=== PATIENT | female | born 1970 | race Caucasian/White ===

== ENCOUNTER → 2016-11-18 | Outpatient (CLI) | payer MEDICARE ==
[2016-11-18 09:03] VITALS: BP 131/88; PULSE 69; RESP 16; TEMP 97.7; BMI 40.1
[2016-11-18 10:34] LABS: INR 1.1 (<1.1); Prothrombin Time 11.2 sec (9.0-12.0)
[2016-11-18 11:08] LABS: ALT 33 U/L (9-52); AST 22 U/L (14-36); Alkaline Phosphatase 81 U/L (38-126); Anion Gap 15 mmol/L; Blood Urea Nitrogen 6 mg/dL (7-17); Calcium 9.3 mg/dL (8.4-10.2); Carbon Dioxide 29 mmol/L (22-30); Chloride 101 mmol/L (98-107); Cholesterol 177 mg/dL (<200); Glucose 87 mg/dL (74-99); HDL Cholesterol 53 mg/dL (40-60); Iron 60 ug/dL (37-170); Magnesium 1.7 mg/dL (1.6-2.3); Non-African American GFR(MDRD) >60 (>60 ml/min/1.73 sqM); Phosphorous 3.7 mg/dL (2.5-4.5); Potassium 3.5 mmol/L (3.5-5.1); Sodium 145 mmol/L (137-145); Total Bilirubin 0.9 mg/dL (0.2-1.3); Total Protein 6.8 g/dL (6.3-8.2); Triglycerides 126 mg/dL (<150)
[2016-11-18 11:13] LABS: CHCM 33.3; HCT 46.9 % (34.0-46.0); HDW 2.89; HGB 15.2 gm/dL (11.4-16.0); MCH 28.5 pg (25.0-35.0); MCHC 32.5 g/dL (31.0-37.0); MCV 87.7 fL (80.0-100.0); Mean Platelet Volume 9.7; RBC 5.34 m/uL (3.80-5.40); RDW 15.5 % (11.5-15.5); WBC 5.5 k/uL (3.8-10.6)
[2016-11-18 11:18] LABS: % Iron Saturation 18.6 % (20-50); Prealbumin 14 mg/dL (18-36); Total Iron Binding Capacity 322 ug/dL (265-497)
[2016-11-18 12:10] LABS: Vitamin B12 954 pg/mL (239-931)
[2016-11-18 13:13] LABS: Hemoglobin A1C 4.6 % (4.2-6.1)
--- NOTE | 2016-11-21 18:39 | P.PN ---
Progress Note - Text DATE OF SERVICE: 11/18/2016. CHIEF COMPLAINT: Follow-up gastric bypass. HISTORY OF PRESENT ILLNESS: Paz Escalera is a 46-year-old female who is status post Aurea-en-Y gastric bypass from 08/16/2016. She is more than 3 months out. She has done a remarkable job, losing over 100 pounds lifetime. Her highest weight was 341 pounds to her recollection. Her ideal body weight for a 5-foot, 4-frame is 144 pounds. Today she comes in weighing 234 pounds. She has already lost 107 pounds. Percent excess weight loss of 54%. Body mass index is reduced from 58.7 down to 40.2. BMI point reduction is 18.4. She has lost an additional 24 pounds in approximately a month and a half. Her medications have been reduced from 32 to only 3 medications. No further reports of nausea and vomiting. She reports that her protein intake is averaging less than 60 grams daily. However, she denies any hair loss. She does report constipation. PAST MEDICAL HISTORY: 1. Morbid obesity. 2. Asthma. 3. Diabetes type 2, resolved. 4. Fibromyalgia. 5. Hyperlipidemia. 6. Hypertension, resolved. 7. Osteoarthritis. 8. Sjogren's disease. 9. Obstructive sleep apnea, resolved. 10. Chronic tachycardia, resolved. 11. Gastroesophageal reflux disease, resolved. 12. Irritable bowel syndrome. 13. Hypokalemia. 14. Peripheral venous insufficiency. 15. Lupus. 16. History of MRSA. 17. Anxiety. 18. Depression. PAST SURGICAL HISTORY: 1. Bilateral knee replacement. 2. Right knee replacement with sequelae of MRSA infection. 3. Cholecystectomy. 4. Hysterectomy. 5. Tonsillectomy. 6. Left knee arthroscopy. 7. Upper endoscopy. 8. Colonoscopy. 9. Laparoscopic Aurea-en-Y gastric bypass. MEDICATIONS: 1. Omeprazole. 2. Lopressor. 3. Cardizem. ALLERGIES: Milk and environmental allergies. SOCIAL HISTORY: Lifelong nontobacco user. No current alcohol abuse. FAMILY HISTORY: Denies esophageal or stomach cancer. Has obesity in her family as well as diabetes. REVIEW OF SYSTEMS: CONSTITUTIONAL: [place] body weight of 144 pounds. Highest weight of 341 pounds. She has 107 pounds weight loss. She is currently 90 pounds overweight. Body mass index reduced from 58.7 down to 40.2. Percent excess weight loss of 54%. Weight loss of 24 pounds in a month and a half. GASTROINTESTINAL: No reports of gastroesophageal reflux now resolved. ENDOCRINE: Resolved diabetes type 2. No reports of thyroid disorder. RESPIRATORY: Resolved obstructive sleep apnea. MUSCULOSKELETAL: Improved osteoarthritis of the lower back, including bilateral knees and hips. HEENT: She wears glasses. No reports of dysphagia. No reports of troubles with hearing. CARDIOVASCULAR: Has hypertensive cardiomyopathy. No recent chest pain or heart attack. NEURO: No recent stroke or seizure disorder. PSYCH: History of depression without suicidal ideation. HEMATOLOGIC: No recent DVTs or pulmonary emboli in herself or family. PHYSICAL EXAM: VITAL SIGNS: 97.7, 69, 16, 131/88; 5 feet 4 inches; 234 pounds. Body mass index 40.2. ABDOMEN: Soft. No palpable incisional hernias. Protuberant, nontender, nondistended. GENERAL: Well-developed female in no acute distress. MUSCULOSKELETAL: Resolved edema of the bilateral lower extremity now down to trace pedal edema. HEENT: No scleral icterus. Extraocular movements grossly intact. NECK: Supple without lymphadenopathy. CHEST: Nonlabored respirations with equal bilateral excursions. CARDIOVASCULAR: Tachycardic. NEURO: No focal or lateralizing signs. Cranial nerves 2-12 grossly within normal limits. PSYCH: Appropriate affect. Alert and oriented to person, place and time. LABS: Basic metabolic panel revealed white blood cell count of 5.5. Hemoglobin normal at 15.2. Hematocrit normal at 46.9. INR 1.1. BUN low at 6. Potassium low at 3.5. Magnesium low 1.7. Phosphorus normal at 3.7. Percent iron saturation low at 18.6. Prealbumin low at 14. Total protein normal at 6.8. Vitamin D low at 27. Thiamine low at 31. Vitamin B12 elevated at 954. Parathyroid hormone elevated at 96.1. Thyroid within normal limits. Copper selenium still pending. ASSESSMENT: 1. Morbid obesity due to excess calories. 2. Body mass index reduced from 58.7 down to 40.2. 3. Status post Aurea-en-Y gastric bypass. 4. Status post massive weight loss of 107 pounds lifetime. 5. Gastroesophageal reflux disease, resolved. 6. Diabetes type 2, resolved. 7. Hypertension with hypertensive heart disease. 8. Osteoarthritis of the bilateral knees improved. 9. Panniculitis. 10. Vitamin A deficiency. 11. Thiamine deficiency. 12. Elevated parathyroid hormone elevated. PLAN: 1. Recommend vitamin A supplement of at least 8000 units daily. 2. Recommend thiamine supplement. May need thiamine infusion. 3. Recommend calcium intake at minimum 1200 mg daily in divided doses. 4. Recommend nystatin powder for history of panniculitis. 5. Recommend follow-up at the bariatric center within 3 to 4 weeks out. 6. She does have history of constipation for which MiraLax has been prescribed on her behalf.
[2016-11-23 18:24] LABS: Selenium 140 mcg/L (63-160)
== END | disposition home or self-care (01) ==
LOC: BARWHC3 08:40
PROVIDERS: ATTEND Surgery Plastic and Reconstructive Surgery
DX: Z48.815 Encounter for surgical aftercare following surgery on the digestive system (principal); Z71.3 Dietary counseling and surveillance; Z79.899 Other long term (current) drug therapy; Z98.84 Bariatric surgery status; Z91.011 Allergy to milk products; Z91.048 Other nonmedicinal substance allergy status; E66.01 Morbid (severe) obesity due to excess calories; Z68.41 Body mass index [BMI] 40.0-44.9, adult; I11.9 Hypertensive heart disease without heart failure; M16.0 Bilateral primary osteoarthritis of hip; M17.0 Bilateral primary osteoarthritis of knee; M79.3 Panniculitis, unspecified; E50.9 Vitamin A deficiency, unspecified; E61.8 Deficiency of other specified nutrient elements; E21.3 Hyperparathyroidism, unspecified; R00.0 Tachycardia, unspecified; Z86.14 Personal history of Methicillin resistant Staphylococcus aureus infection; I73.9 Peripheral vascular disease, unspecified; M32.9 Systemic lupus erythematosus, unspecified; M79.7 Fibromyalgia; J45.909 Unspecified asthma, uncomplicated
CPT/HCPCS: 84255; 84134; 84425; 80061; 80053; 82607; 82728; 83036; 82525; 82746; 83540; 83550; 83735; 84100; 84443; 84590; 84630; 85027; 85610; 85730; 82306; 83970; 97803; G0463; 99211

== ENCOUNTER → 2017-02-17 | Outpatient (CLI) | payer MEDICARE ==
[2017-02-17 09:12] VITALS: BMI 35.0
[2017-02-17 09:26] VITALS: BP 157/81; PULSE 59; RESP 20; TEMP 97
[2017-02-17 10:49] LABS: CH 30.4; CHCM 34.2; HCT 45.1 % (34.0-46.0); HGB 14.7 gm/dL (11.4-16.0); MCH 29.1 pg (25.0-35.0); MCHC 32.6 g/dL (31.0-37.0); MCV 89.4 fL (80.0-100.0); Mean Platelet Volume 9.9; RBC 5.05 m/uL (3.80-5.40); WBC 4.9 k/uL (3.8-10.6)
[2017-02-17 11:22] LABS: Hemoglobin A1C 4.5 % (4.2-6.1)
[2017-02-17 11:27] LABS: INR 1.1 (<1.1); Partial Thromboplastin Time 23.5 sec (22.0-30.0); Prothrombin Time 11.1 sec (9.0-12.0)
[2017-02-17 11:48] LABS: ALT 27 U/L (9-52); AST 16 U/L (14-36); Alkaline Phosphatase 80 U/L (38-126); Anion Gap 12 mmol/L; Blood Urea Nitrogen 10 mg/dL (7-17); Calcium 9.5 mg/dL (8.4-10.2); Carbon Dioxide 29 mmol/L (22-30); Chloride 104 mmol/L (98-107); Cholesterol 171 mg/dL (<200); Glucose 83 mg/dL (74-99); HDL Cholesterol 54 mg/dL (40-60); Iron 72 ug/dL (37-170); Magnesium 1.8 mg/dL (1.6-2.3); Non-African American GFR(MDRD) >60 (>60 ml/min/1.73 sqM); Phosphorous 4.2 mg/dL (2.5-4.5); Potassium 3.2 mmol/L (3.5-5.1); Sodium 145 mmol/L (137-145); Total Bilirubin 0.8 mg/dL (0.2-1.3); Total Protein 6.9 g/dL (6.3-8.2); Triglycerides 107 mg/dL (<150)
[2017-02-17 12:08] LABS: % Iron Saturation 20.9 % (20-50); Prealbumin 13 mg/dL (18-36); Total Iron Binding Capacity 345 ug/dL (265-497)
[2017-02-17 12:53] LABS: Vitamin B12 589 pg/mL (239-931)
[2017-02-22 16:40] LABS: Selenium 100 mcg/L (63-160)
--- NOTE | 2017-04-07 13:22 | P.PN ---
Progress Note - Text DATE OF SERVICE: 02/17/2017 CHIEF COMPLAINT: Follow-up gastric bypass. HISTORY OF PRESENT ILLNESS: Paz Escalera is a very pleasant 46-year-old female status post Aurea-en-Y gastric bypass 08/16/2016. At her height of 5 feet 4 inches, her ideal body weight is 144 pounds. Her highest weight is 341 pounds. Today she comes in weighing 204 pounds. She has lost 137 pounds in now 6 months. Percent excess weight loss is 70%. Her body mass index is reduced from 58.7 down to 35. Total BMI point reduction is 23.6. She is only 60 pounds overweight. Since her last assessment barely 3 months ago she has also lost another 30 pounds. She has complete resolution of her diabetes including obstructive sleep apnea. Osteoarthritis is moderately improved. She is off of many of her antidepressants whereby her mood is excellent. She does report having passing out in [employer] after having low blood pressure from her medications. She denies any gastroesophageal reflux as well. She does report moderate skin irritation from her pannus. Now she presents for further evaluation and management. PAST MEDICAL HISTORY: 1. Morbid obesity. 2. Asthma. 3. Diabetes type 2, resolved. 4. Fibromyalgia. 5. Hyperlipidemia. 6. Hypertension, resolved. 7. Osteoarthritis. 8. Sjogren's disease. 9. Obstructive sleep apnea, resolved. 10. Chronic tachycardia, resolved. 11. Gastroesophageal reflux disease, resolved. 12. Irritable bowel syndrome. 13. Hypokalemia. 14. Peripheral venous insufficiency. 15. Lupus. 16. History of MRSA. 17. Anxiety. 18. Depression. PAST SURGICAL HISTORY: 1. Bilateral knee replacement. 2. Right knee replacement with sequelae of MRSA infection. 3. Cholecystectomy. 4. Hysterectomy. 5. Tonsillectomy. 6. Left knee arthroscopy. 7. Upper endoscopy. 8. Colonoscopy. 9. Laparoscopic Aurea-en-Y gastric bypass. MEDICATIONS: 1. Cardizem. 2. Calcium carbonate. 3. Multivitamins. 4. Thiamine. 5. Vitamin A. ALLERGIES: Milk and environmental allergies. SOCIAL HISTORY: Lifelong nontobacco user. No current alcohol abuse. FAMILY HISTORY: Denies esophageal or stomach cancer. Has obesity in her family as well as diabetes. REVIEW OF SYSTEMS: CONSTITUTIONAL: [place] body weight of 144 pounds. Highest weight of 341 pounds. She has lost 137 pounds. She achieved 70% excess weight loss. At her height of 5 feet 4 inches, her ideal body weight is 144 pounds. Her body mass index is reduced from 58.7 down to 35. Total BMI point reduction is 23.6. She is only 60 pounds overweight. CARDIOVASCULAR: Reports still taking her blood pressure with incidental hypotension. GASTROINTESTINAL: No reports of gastroesophageal reflux disease or dysphagia. ENDOCRINE: Resolved diabetes type 2. No reports of thyroid disorder. RESPIRATORY: Resolved obstructive sleep apnea. MUSCULOSKELETAL: Improved osteoarthritis of the lower back, including bilateral knees and hips. HEENT: She wears glasses. No reports of dysphagia. No reports of troubles with hearing. NEURO: No recent stroke or seizure disorder. PSYCH: History of depression without suicidal ideation. HEMATOLOGIC: No recent DVTs or pulmonary emboli in herself or family. PHYSICAL EXAM: VITAL SIGNS: 97, 59, 20, 157/81, 5 feet 4 inches, 204 pounds. Body mass index of 35.1. ABDOMEN: Soft, nontender. No large palpable incisional hernias. Pannus extended over pubis by 6 cm with hyperemia. MUSCULOSKELETAL: No clubbing, cyanosis, or edema. GENERAL: Well-developed female in no acute distress. HEENT: No scleral icterus. Extraocular movements grossly intact. NECK: Supple without lymphadenopathy. CHEST: Nonlabored respirations with equal bilateral excursions. CARDIOVASCULAR: Tachycardic. NEURO: No focal or lateralizing signs. Cranial nerves 2-12 grossly within normal limits. PSYCH: Appropriate affect. Alert and oriented to person, place and time. LABS: Bariatric metabolic panel reviewed demonstrating hemoglobin normal at 14.7. Potassium was low at 3.2. Prealbumin was low at 13. Vitamin A is low at 31. Parathyroid hormone elevated at 91.0. ASSESSMENT: 1. Morbid obesity due to excess calories. 2. Body mass index reduced from 58.7 down to 35. 3. Status post Aurea-en-Y gastric bypass. 4. Status post massive weight loss of 107 pounds lifetime. 5. Gastroesophageal reflux disease, resolved. 6. Diabetes type 2, resolved. 7. Hypertension with hypertensive heart disease. 8. Osteoarthritis of the bilateral knees improved. 9. Panniculitis. 10. Vitamin A deficiency. 11. Thiamine deficiency. 12. Elevated parathyroid hormone elevated. 13. History of syncopal episode secondary to low blood pressure. PLAN: 1. As she had hypotension observed, also recommend weaning of her cardiac medications. 2. On exam, she does have features of panniculitis which nystatin powder is written her behalf. 3. As she no longer reports any gastroesophageal reflux disease; recommend discontinuing her omeprazole. 4. Goal protein intake of over 75 grams advised. 5. For low vitamin A recommend vitamin A rich foods such as carrots, cantaloupes. 6. Parathyroid hormone was elevated secondary to hyperparathyroidism. 7. Also recommend increased intake of calcium over 1500 mg daily.
== END | disposition home or self-care (01) ==
LOC: BARWHC3 08:41
PROVIDERS: ATTEND Surgery Plastic and Reconstructive Surgery
DX: Z48.815 Encounter for surgical aftercare following surgery on the digestive system (principal); E66.01 Morbid (severe) obesity due to excess calories; Z68.35 Body mass index [BMI] 35.0-35.9, adult; Z71.3 Dietary counseling and surveillance; Z98.84 Bariatric surgery status; E21.1 Secondary hyperparathyroidism, not elsewhere classified; E89.1 Postprocedural hypoinsulinemia; E44.0 Moderate protein-calorie malnutrition; E55.9 Vitamin D deficiency, unspecified; D50.8 Other iron deficiency anemias; K74.1 Hepatic sclerosis; N19 Unspecified kidney failure; K50.90 Crohn's disease, unspecified, without complications
CPT/HCPCS: 84255; 84134; 84425; 80061; 80053; 82607; 82728; 83036; 82525; 82746; 83540; 83550; 83735; 84100; 84443; 84590; 84630; 85027; 85610; 85730; 82306; 83970; 97803; G0463; 99211

== ENCOUNTER → 2017-03-31 | Outpatient (CLI) | payer MEDICARE ==
[2017-03-31 10:38] VITALS: BP 146/77; PULSE 60; RESP 16; TEMP 97.7; BMI 32.4
--- NOTE | 2017-04-13 17:47 | P.PN ---
Progress Note - Text DATE OF SERVICE: 03/31/2017 CHIEF COMPLAINT: Follow-up gastric bypass. HISTORY OF PRESENT ILLNESS: Paz Escalera is a very pleasant 46-year-old female status post Aurea-en-Y gastric bypass 08/16/2016. At her height of 5 feet 4 inches, her ideal body weight is 144 pounds. Her highest weight is 341 pounds. Today she comes in weighing 189 pounds. She has lost 152 pounds. Percent excess weight loss is 77%. Her body mass index is reduced from 58.7 down to 32.5. Total BMI point reduction is 26.2 She is 45 pounds overweight. She is now 7 months postop. She reports epigastric abdominal pain including gnawing sensation. She is multiple stressors in her life with her mother just being diagnosed with a brain tumor. She is off more than 30+ medications. She comes in with concerns of panniculitis. She's 30 pounds shy of her weight loss goal. PAST MEDICAL HISTORY: 1. Morbid obesity. 2. Asthma. 3. Diabetes type 2, resolved. 4. Fibromyalgia. 5. Hyperlipidemia. 6. Hypertension, resolved. 7. Osteoarthritis. 8. Sjogren's disease. 9. Obstructive sleep apnea, resolved. 10. Chronic tachycardia, resolved. 11. Gastroesophageal reflux disease, resolved. 12. Irritable bowel syndrome. 13. Hypokalemia. 14. Peripheral venous insufficiency. 15. Lupus. 16. History of MRSA. 17. Anxiety. 18. Depression. PAST SURGICAL HISTORY: 1. Bilateral knee replacement. 2. Right knee replacement with sequelae of MRSA infection. 3. Cholecystectomy. 4. Hysterectomy. 5. Tonsillectomy. 6. Left knee arthroscopy. 7. Upper endoscopy. 8. Colonoscopy. 9. Laparoscopic Aurea-en-Y gastric bypass. MEDICATIONS: 1. Cardizem. 2. Calcium carbonate. 3. Multivitamins. 4. Thiamine. 5. Vitamin A. ALLERGIES: Milk and environmental allergies. SOCIAL HISTORY: Lifelong nontobacco user. No current alcohol abuse. FAMILY HISTORY: Denies esophageal or stomach cancer. Has obesity in her family as well as diabetes. REVIEW OF SYSTEMS: CONSTITUTIONAL: At her height of 5 feet 4 inches, her ideal body weight is 144 pounds. Her highest weight is 341 pounds. Today she comes in weighing 189 pounds. She has lost 152 pounds. Percent excess weight loss is 77%. Her body mass index is reduced from 58.7 down to 32.5. Total BMI point reduction is 26.2 She is 45 pounds overweight. CARDIOVASCULAR: She is on blood pressure medication however improved from over 3 medications. GASTROINTESTINAL: No reports of gastroesophageal reflux disease or dysphagia. No reports of dumping syndrome. ENDOCRINE: Resolved diabetes type 2. No reports of thyroid disorder. RESPIRATORY: Resolved obstructive sleep apnea. No pneumonia. MUSCULOSKELETAL: Improved osteoarthritis of the lower back, including bilateral knees and hips. HEENT: She wears glasses. No reports of dysphagia. No reports of troubles with hearing. NEURO: No recent stroke or seizure disorder. PSYCH: History of depression without suicidal ideation. HEMATOLOGIC: No recent DVTs or pulmonary emboli in herself or family. PHYSICAL EXAM: VITAL SIGNS: 5 feet 4 inches, 189 pounds. Body mass index of 32.5. Vital Signs Temp 97.7 F 03/31/17 10:35 Pulse 60 03/31/17 10:35 Resp 16 03/31/17 10:35 BP 146/77 03/31/17 10:35 Pulse Ox ABDOMEN: Soft, nontender. Nondistended. Pannus over pubis of 7 cm. MUSCULOSKELETAL: No clubbing, cyanosis, or edema. GENERAL: Well-developed female in no acute distress. HEENT: No scleral icterus. Extraocular movements grossly intact. NECK: Supple without lymphadenopathy. CHEST: Nonlabored respirations with equal bilateral excursions. CARDIOVASCULAR: Tachycardic. NEURO: No focal or lateralizing signs. Cranial nerves 2-12 grossly within normal limits. PSYCH: Appropriate affect. Alert and oriented to person, place and time. LABS: Bariatric metabolic panel reviewed demonstrating hemoglobin normal at 14.7. Potassium was low at 3.2. Prealbumin was low at 13. Vitamin A is low at 31. Parathyroid hormone elevated at 91.0. ASSESSMENT: 1. Morbid obesity due to excess calories. 2. Body mass index reduced from 58.7 down to 32.5. 3. Status post Aurea-en-Y gastric bypass. 4. Status post massive weight loss of 152 pounds lifetime. 5. Gastroesophageal reflux disease, resolved. 6. Diabetes type 2, resolved. 7. Hypertension with hypertensive heart disease. 8. Osteoarthritis of the bilateral knees improved. 9. Panniculitis. 10. Vitamin A deficiency 11. Thiamine deficiency, resolved. 12. Elevated parathyroid hormone elevated. 13. Epigastric abdominal pain. PLAN: 1. Recommend vitamin A supplement 8000 units daily. 2. Protein intake advised over 60 g daily. 3. Recommend upper endoscopy for epigastric abdominal pain. She is at risk for developing ulcer as she is under multiple social stressors. 4. Recommend follow-up 9 months postop otherwise for May 2017. 5. Nystatin powder for panniculitis.
== END | disposition home or self-care (01) ==
LOC: BARWHC3 09:21
PROVIDERS: ATTEND Surgery Plastic and Reconstructive Surgery
DX: Z48.815 Encounter for surgical aftercare following surgery on the digestive system (principal); E66.01 Morbid (severe) obesity due to excess calories; I11.9 Hypertensive heart disease without heart failure; M17.0 Bilateral primary osteoarthritis of knee; E50.9 Vitamin A deficiency, unspecified; Z68.32 Body mass index [BMI] 32.0-32.9, adult; Z79.899 Other long term (current) drug therapy; Z91.011 Allergy to milk products; Z98.84 Bariatric surgery status
CPT/HCPCS: 99211

== ENCOUNTER 2017-05-06 16:47 | Emergency (ER) | payer MEDICARE ==
[2017-05-06] MEDS ORDERED: MORPHINE SULFATE 10 MG/ML SYRINGE IM STA (17:37)
--- NOTE | 2017-05-06 17:58 | ED ---
Fall HPI - General Chief Complaint: Fall Stated Complaint: Fall Time Seen by Provider: 05/06/17 17:06 Source: patient, RN notes reviewed, old records reviewed Mode of arrival: ambulatory - History of Present Illness Initial Comments: 46-year-old female presents emergency Department chief complaint of a fall after losing her balance while walking through the garage. Patient reports that she twisted her left foot and ankle, and her knee bent backwards. She also reports that she fell and landed on her tailbone. She reports the pain is mainly in her lower back in tailbone area. She reports that she had a history of GERD bear active surgery and bilateral knee replacements. Patient reports that she thinks maybe heard right knee gave out on her and her left knee tried to catch her weight. She reports that she is having some knee pain with range of motion in his noticed some swelling. She denies any peripheral paresthesias. Denies any saddle anesthesias. Reports that the fall happened approximately 3 hours ago. - Related Data Home Medications Medication Instructions Recorded Confirmed Diltiazem HCl [Cardizem Cd] 360 mg PO QAM 04/01/16 03/31/17 Multivitamin [Men's Multi-Vitamin] 1 each PO DAILY 02/17/17 03/31/17 Previous Rx's Medication Instructions Recorded Calcium Carbonate [Calcium] 600 mg PO BID #60 tablet 11/20/16 Thiamine [Vitamin B-1] 100 mg PO DAILY #90 tablet 11/20/16 Vitamin A 8,000 unit PO DAILY #30 capsule 11/20/16 Nystatin 100,000 Unit/gm Powd 1 applic TOPICAL BID #60 powder 02/17/17 [Mycostatin Powder] Acetaminophen-Codeine 300-30mg 1 tab PO Q4H PRN #15 tablet 05/06/17 [Tylenol #3] Allergies Allergy/AdvReac Type Severity Reaction Status Date / Time milk AdvReac Diarrhea Verified 05/06/17 17:04 environment Allergy Mild Unknown Uncoded 05/06/17 17:04 Review of Systems ROS Statement: Those systems with pertinent positive or pertinent negative responses have been documented in the HPI. ROS Other: All systems not noted in ROS Statement are negative. Past Medical History Past Medical History: Asthma, Diabetes Mellitus, Fibromyalgia, GERD/Reflux, Hyperlipidemia, Hypertension, Osteoarthritis (OA), Skin Disorder, Sleep Apnea/ CPAP/BIPAP Additional Past Medical History / Comment(s): Sleep apnea, tachycardia. USES CPAP. Shogen's syndrome. IBS, low potassium, peripheral venous insufficiency, lupus. History of Any Multi-Drug Resistant Organisms: None Reported, MRSA Date of last positivie culture/infection: 2013 MDRO Source:: knee joint 2014 finished rx in December 2015 Past Surgical History: Bariatric Surgery, Cholecystectomy, Hysterectomy, Joint Replacement, Orthopedic Surgery, Tonsillectomy Additional Past Surgical History / Comment(s): 08/16/16 Laparoscopic Aurea-En Y gastric bypass with EGD. Other surgical hx: Laparoscopy x3. AT 1 WEEKS OLD, REPAIR OF PYLORIC STENOSIS. Left knee arthroscopic x4 with reconstruction x2. Total knee replacement 2008. Right total knee replacement 2009, removal of right knee replacement (MRSA) and spacer inserted. Past Anesthesia/Blood Transfusion Reactions: Postoperative Nausea & Vomiting ( PONV) Past Psychological History: Anxiety Smoking Status: Never smoker - Past Family History Mother Family Medical History: Congestive Heart Failure (CHF), Diabetes Mellitus, Hyperlipidemia, Hypertension, Thyroid Disorder General Exam - General Exam Comments Initial Comments: 46-year-old female. No acute distress. Limitations: no limitations General appearance: alert, in no apparent distress Head exam: Present: atraumatic, normocephalic, normal inspection Eye exam: Present: normal appearance, PERRL, EOMI. Absent: scleral icterus, conjunctival injection, periorbital swelling ENT exam: Present: normal exam, mucous membranes moist Neck exam: Present: normal inspection. Absent: tenderness, meningismus, lymphadenopathy Respiratory exam: Present: normal lung sounds bilaterally. Absent: respiratory distress, wheezes, rales, rhonchi, stridor Cardiovascular Exam: Present: regular rate, normal rhythm, normal heart sounds. Absent: systolic murmur, diastolic murmur, rubs, gallop, clicks GI/Abdominal exam: Present: soft, normal bowel sounds. Absent: distended, tenderness, guarding, rebound, rigid Extremities exam: Present: normal inspection, full ROM, normal capillary refill. Absent: tenderness, pedal edema, joint swelling, calf tenderness Left Hip exam: Present: normal inspection, full ROM Upper Leg exam: Present: normal inspection, full ROM Knee exam: Present: normal inspection (healed incision of knee replacement. ), full ROM Lower Leg exam: Present: normal inspection, full ROM Ankle exam: Present: normal inspection, full ROM Foot/Toe exam: Present: normal inspection, full ROM, tenderness (over dorsum of foot. ) Neurovascular tendon exam: Present: no vascular compromise Gait: observed and limited by pain Back exam: Present: normal inspection Neurological exam: Present: alert, oriented X3, CN II-XII intact Psychiatric exam: Present: normal affect, normal mood Skin exam: Present: warm, dry, intact, normal color. Absent: rash Course Vital Signs 05/06/17 17:03 Temperature 98.4 F Pulse Rate 87 Respiratory 20 Rate Blood Pressure 158/87 O2 Sat by Pulse 98 Oximetry Medical Decision Making - Medical Decision Making 46-year-old female presents emergency Department chief complaint of a fall after losing her balance while walking through the garage. Patient reports that she twisted her left foot and ankle, and her knee bent backwards. She also reports that she fell and landed on her tailbone. She reports the pain is mainly in her lower back in tailbone area. She reports that she had a history of GERD bear active surgery and bilateral knee replacements. Patient reports that she thinks maybe heard right knee gave out on her and her left knee tried to catch her weight. Patient will be given a knee immobilizer and [place]ingo wrap over the foot. Patient will be discharged with pain medication. She was given 5 mg of IM morphine and is feeling somewhat better at this time. Patient agrees to treatment plan will comply. Return parameters were discussed. Discussed falling up with orthopedic physician as well. Disposition Clinical Impression: Strain of left knee, Lumbar back pain, Fall, Sprain of left foot Disposition: HOME SELF-CARE Condition: Good Instructions: Knee Sprain (ED), Coccyx Injury (ED) Additional Instructions: Patient advised to follow-up with orthopedic physician. Take the pain medication as directed. Return to emergency department if any alarming signs or symptoms occur. Prescriptions: Acetaminophen-Codeine 300-30mg [Tylenol #3] 1 tab PO Q4H PRN #15 tablet PRN Reason: Pain Referrals: Elizabeth Westbrook MD [Primary Care Provider] - 1-2 days Time of Disposition: 18:53
--- NOTE | 2017-05-06 18:29 | XR ---
EXAMINATION TYPE: XR lumbar spine 2 or 3V DATE OF EXAM: 05/06/2017 COMPARISON: NONE HISTORY: Back pain TECHNIQUE: 3 views FINDINGS: The vertebra have normal alignment. There is degenerative disc space narrowing in the lower lumbar spine mainly at L4-5 and L5-S1. There is no compression fracture. Posterior elements are inta ct. Sacroiliac joints are intact. IMPRESSION: Spondylotic changes in the lower lumbar spine. No fracture seen.
--- NOTE | 2017-05-06 18:30 | XR ---
EXAMINATION TYPE: XR sacrum coccyx DATE OF EXAM: 05/06/2017 COMPARISON: NONE HISTORY: Back pain TECHNIQUE: 3 views FINDINGS: Segments have normal alignment. There is spondylosis in the lower lumbar spine. Sacroiliac joints are intact. IMPRESSION: Spondylotic changes in the lumbar spine. No fracture of the sacrum and coccyx.
--- NOTE | 2017-05-06 18:31 | XR ---
EXAMINATION TYPE: XR knee complete LT DATE OF EXAM: 05/06/2017 COMPARISON: NONE HISTORY: Pain TECHNIQUE: 3 views FINDINGS: There is a total knee prosthesis. Components appear in anatomic position. I see no fracture . There is no sign of joint effusion. IMPRESSION: Knee prosthesis. No fracture seen.
--- NOTE | 2017-05-06 18:33 | XR ---
EXAMINATION TYPE: XR foot limited LT DATE OF EXAM: 05/06/2017 COMPARISON: NONE HISTORY: Pain TECHNIQUE: 2 views FINDINGS: Metatarsals appear intact. There is a small Achilles calcaneal spur. I see no fracture nor dislocation. There are no erosions. IMPRESSION: Calcaneal spurring. No fracture seen.
[2017-05-06 19:18] VITALS: BP 125/76; PULSE 70; RESP 16; TEMP 98
== END 2017-05-06 19:12 | disposition home or self-care (01) ==
LOC: EC 16:47
DX: S93.602A Unspecified sprain of left foot, initial encounter (principal); S86.912A Strain of unspecified muscle(s) and tendon(s) at lower leg level, left leg, initial encounter; M54.5 Low back pain; I10 Essential (primary) hypertension; Z96.653 Presence of artificial knee joint, bilateral; Z86.14 Personal history of Methicillin resistant Staphylococcus aureus infection; Z79.899 Other long term (current) drug therapy; Z91.011 Allergy to milk products; Z91.048 Other nonmedicinal substance allergy status; X50.1XXA Overexertion from prolonged static or awkward postures, initial encounter; W18.39XA Other fall on same level, initial encounter
CPT/HCPCS: 72100; 72220; 73562; 73620; 99284; 96372; J2270

== ENCOUNTER → 2017-05-19 | Outpatient (CLI) | payer MEDICARE ==
[2017-05-19 09:20] VITALS: BP 144/76; PULSE 73; RESP 16; TEMP 98; BMI 29.7
== END | disposition home or self-care (01) ==
LOC: BARWHC3 08:47
PROVIDERS: ATTEND Surgery Plastic and Reconstructive Surgery
DX: Z48.815 Encounter for surgical aftercare following surgery on the digestive system (principal); E66.01 Morbid (severe) obesity due to excess calories; Z98.84 Bariatric surgery status; E89.1 Postprocedural hypoinsulinemia; D50.8 Other iron deficiency anemias; E44.0 Moderate protein-calorie malnutrition; E55.9 Vitamin D deficiency, unspecified; K74.1 Hepatic sclerosis; N19 Unspecified kidney failure; K50.90 Crohn's disease, unspecified, without complications; Z68.29 Body mass index [BMI] 29.0-29.9, adult
CPT/HCPCS: 99211

== ENCOUNTER → 2017-07-14 | Outpatient (CLI) | payer MEDICARE ==
[2017-07-14 11:14] LABS: CH 29.7; CHCM 32.3; HCT 42.6 % (34.0-46.0); HDW 2.54; HGB 13.8 gm/dL (11.4-16.0); MCH 29.8 pg (25.0-35.0); MCHC 32.3 g/dL (31.0-37.0); MCV 92.3 fL (80.0-100.0); Mean Platelet Volume 9.4; RBC 4.62 m/uL (3.80-5.40); RDW 13.8 % (11.5-15.5); WBC 4.1 k/uL (3.8-10.6)
[2017-07-14 11:19] LABS: INR 1.2 (<1.2); Partial Thromboplastin Time 24.6 sec (22.0-30.0); Prothrombin Time 11.7 sec (9.0-12.0)
[2017-07-14 11:33] LABS: ALT 29 U/L (9-52); AST 13 U/L (14-36); Alkaline Phosphatase 87 U/L (38-126); Anion Gap 10 mmol/L; Blood Urea Nitrogen 10 mg/dL (7-17); Calcium 9.4 mg/dL (8.4-10.2); Carbon Dioxide 28 mmol/L (22-30); Chloride 104 mmol/L (98-107); Cholesterol 156 mg/dL (<200); Glucose 80 mg/dL (74-99); HDL Cholesterol 54 mg/dL (40-60); Magnesium 1.7 mg/dL (1.6-2.3); Non-African American GFR(MDRD) >60 (>60 ml/min/1.73 sqM); Phosphorus 4.6 mg/dL (2.5-4.5); Potassium 3.6 mmol/L (3.5-5.1); Sodium 142 mmol/L (137-145); Total Bilirubin 0.7 mg/dL (0.2-1.3); Total Protein 6.5 g/dL (6.3-8.2)
[2017-07-14 12:18] LABS: Vitamin B12 400 pg/mL (239-931)
[2017-07-14 12:39] LABS: Hemoglobin A1C 4.6 % (4.2-6.1)
[2017-07-14 15:24] LABS: Iron Saturation 25.33 (12.00-45.00)
[2017-07-19 18:10] LABS: Selenium 132 mcg/L (63-160)
== END | disposition home or self-care (01) ==
LOC: LABWHC1 10:35
PROVIDERS: ATTEND Surgery Plastic and Reconstructive Surgery
DX: D50.8 Other iron deficiency anemias (principal); E66.01 Morbid (severe) obesity due to excess calories; E44.0 Moderate protein-calorie malnutrition; E55.9 Vitamin D deficiency, unspecified; E89.1 Postprocedural hypoinsulinemia; N19 Unspecified kidney failure; K74.1 Hepatic sclerosis; K50.90 Crohn's disease, unspecified, without complications
CPT/HCPCS: 36415; 80053; 80061; 82306; 82525; 82607; 82728; 82746; 83036; 83540; 83550; 83735; 83970; 84100; 84134; 84255; 84425; 84443; 84590; 84630; 85027; 85610; 85730

== ENCOUNTER → 2017-08-09 | Outpatient (CLI) | payer MEDICARE ==
--- NOTE | 2017-08-18 14:01 | ECHOF ---
Referral Reason:Hypertension I10 R55 Syncope MEASUREMENTS -------- HEIGHT: 162.6 cm WEIGHT: 70.8 kg BP: 132/86 RVIDd: 2.4 cm (< 3.3) IVSd: 0.9 cm (0.6 - 1.1) LVIDd: 4.8 cm (3.9 - 5.3) LVPWd: 1.0 cm (0.6 - 1.1) IVSs: 1.1 cm LVIDs: 3.5 cm LVPWs: 1.3 cm LAESV Index (A-L): 22.16 ml/m Ao Diam: 3.0 cm (2.0 - 3.7) AV Cusp: 2.0 cm (1.5 - 2.6) LA Diam: 4.3 cm (2.7 - 3.8) EPSS: 1.0 cm MV E Jurgen: 0.50 m/s MV DecT: 227 ms MV A Jurgen: 0.73 m/s MV E/A Ratio: 0.69 RAP: 5.00 mmHg RVSP: 23.03 mmHg MV EF SLOPE: 152.95 mm/s (70 - 150) MV EXCURSION: 2.38 cm (> 18.000) FINDINGS -------- Sinus rhythm. This was a technically good study. The left ventricular size is normal. Left ventricular wall thickness is normal. Overall left vent ricular systolic function is normal with, an EF between 55 - 60 %. The right ventricle is normal in size and function. Normal LA size by volume 22+/-6 ml/m2. The right atrium is normal in size. The aortic valve is trileaflet, and appears structurally normal. No aortic stenosis or regurgitation. The mitral valve is normal. Mild mitral regurgitation is present. Trace tricuspid regurgitation present. There is no pulmonic regurgitation present. The aortic root size is normal. Normal inferior vena cava with normal inspiratory collapse consistent with estimated right atrial pre ssure of 5 mmHg. The pericardium is normal. There is no pericardial effusion. CONCLUSIONS -------- 1. Sinus rhythm. 2. This was a technically good study. 3. Left ventricular wall thickness is normal. 4. Overall left ventricular systolic function is normal with, an EF between 55 - 60 %. 5. Normal LA size by volume 22+/-6 ml/m2. 6. The aortic valve is trileaflet, and appears structurally normal. No aortic stenosis or regurgitati on. 7. The mitral valve is normal. 8. Mild mitral regurgitation is present. 9. Trace tricuspid regurgitation present. 10. There is no pulmonic regurgitation present. 11. There is no pericardial effusion. CLINICAL AUDITOR: Cristian Elkins RDCS
== END | disposition home or self-care (01) ==
LOC: RADECHMAIN 15:26
PROVIDERS: ATTEND Internal Medicine
DX: I08.1 Rheumatic disorders of both mitral and tricuspid valves (principal); I10 Essential (primary) hypertension
CPT/HCPCS: 93306

== ENCOUNTER → 2017-08-18 | Outpatient (CLI) | payer MEDICARE ==
[2017-08-18 09:00] VITALS: BP 140/91; PULSE 78; RESP 16; TEMP 98; BMI 26.1
--- NOTE | 2017-10-20 18:46 | P.PN ---
Progress Note - Text Progress Note Date: 08/18/17 DATE OF SERVICE: 08/18/2017 CHIEF COMPLAINT: Follow-up gastric bypass. HISTORY OF PRESENT ILLNESS: Paz Escalera is a 46-year-old female status post Aurea-en-Y gastric bypass 08/16/2016. At her height of 5 feet 4 inches, her ideal body weight is 144 pounds. Her highest weight is 341 pounds. Today she comes in weighing 152 pounds. She has lost 189 pounds. Percent excess weight loss is 96%. Her body mass index is reduced from 58.7 down to 26.1. Total BMI point reduction is 32.6. She is 8 pounds overweight. She is 1 year postop. She has lost another 21 pounds in 3 months since her visit in May 2017. She is off all 38 medications. She reports resolution of her hypertension, fibromyalgia. She has much energy. No reports of dysphagia. She reports maintaining her protein intake. She comes in complaints with her abdominal skin , where she continues to have rash, odor, and irritation despite prescribed medications such as Nystatin powder. PAST MEDICAL HISTORY: 1. Morbid obesity. 2. Asthma. 3. Diabetes type 2, resolved. 4. Fibromyalgia. 5. Hyperlipidemia. 6. Hypertension, resolved. 7. Osteoarthritis. 8. Sjogren's disease. 9. Obstructive sleep apnea, resolved. 10. Chronic tachycardia, resolved. 11. Gastroesophageal reflux disease, resolved. 12. Irritable bowel syndrome. 13. Hypokalemia. 14. Peripheral venous insufficiency. 15. Lupus. 16. History of MRSA. 17. Anxiety. 18. Depression. PAST SURGICAL HISTORY: 1. Bilateral knee replacement. 2. Right knee replacement with sequelae of MRSA infection. 3. Cholecystectomy. 4. Hysterectomy. 5. Tonsillectomy. 6. Left knee arthroscopy. 7. Upper endoscopy. 8. Colonoscopy. 9. Laparoscopic Aurea-en-Y gastric bypass. MEDICATIONS: 1. Vitamin A. 2. Calcium carbonate. 3. Multivitamins. 4. Thiamine. ALLERGIES: Milk and environmental allergies. SOCIAL HISTORY: Lifelong nontobacco user. No current alcohol abuse. FAMILY HISTORY: Denies esophageal or stomach cancer. Has obesity in her family as well as diabetes. REVIEW OF SYSTEMS: CONSTITUTIONAL: At her height of 5 feet 4 inches, her ideal body weight is 144 pounds. Her highest weight is 341 pounds. Today she comes in weighing 152 pounds. She has lost 189 pounds. Percent excess weight loss is 96%. Her body mass index is reduced from 58.7 down to 26.1. Total BMI point reduction is 32.6. She is 8 pounds overweight. CARDIOVASCULAR: She is off all blood pressure medications. GASTROINTESTINAL: No reports of gastroesophageal reflux disease or dysphagia. No reports of dumping syndrome. ENDOCRINE: Resolved diabetes type 2. No reports of thyroid disorder. RESPIRATORY: Resolved obstructive sleep apnea. No pneumonia. MUSCULOSKELETAL: Improved osteoarthritis of the lower back, including bilateral knees and hips. HEENT: She wears glasses. No reports of dysphagia. No reports of troubles with hearing. NEURO: No recent stroke or seizure disorder. PSYCH: History of depression without suicidal ideation. HEMATOLOGIC: No recent DVTs or pulmonary emboli in herself or family. SKIN: Reports chronic skin infections of panniculitis. PHYSICAL EXAM: VITAL SIGNS: 5 feet 4 inches, 173 pounds. Body mass index of 26.1. Vital Signs Temp 98.0 F 08/18/17 08:55 Pulse 78 08/18/17 08:55 Resp 16 08/18/17 08:55 BP 140/91 08/18/17 08:55 Pulse Ox ABDOMEN: Soft, nontender. Nondistended. Pannus over pubis of 8 cm with panniculitis. MUSCULOSKELETAL: No clubbing, cyanosis, or edema. GENERAL: Well-developed female in no acute distress. HEENT: No scleral icterus. Extraocular movements grossly intact. NECK: Supple without lymphadenopathy. CHEST: Nonlabored respirations with equal bilateral excursions. CARDIOVASCULAR: Tachycardic. NEURO: No focal or lateralizing signs. Cranial nerves 2-12 grossly within normal limits. PSYCH: Appropriate affect. Alert and oriented to person, place and time. SKIN: Well perfused. Good skin turgor. LABS: Reviewed with low prealbumin, vitamin A, PTH elevated but improved. ASSESSMENT: 1. Morbid obesity due to excess calories. 2. Body mass index reduced from 58.7 down to 26.1. 3. Status post Aurea-en-Y gastric bypass. 4. Status post massive weight loss of 189 pounds lifetime. 5. Gastroesophageal reflux disease, resolved. 6. Diabetes type 2, resolved. 7. Hypertension with hypertensive heart disease, improved. 8. Osteoarthritis of the bilateral knees improved. 9. Panniculitis. 10. Vitamin A deficiency. PLAN: 1. Recommend evaluation for panniculectomy as she continues to have chronic infections for panniculitis. 2. Goal of protein intake of over 70 grams advised. 3. Continue with Nystatin powder. 4. Follow-up at the bariatric center in February 2018.
== END | disposition home or self-care (01) ==
LOC: BARWHC3 08:37
PROVIDERS: ATTEND Surgery Plastic and Reconstructive Surgery
DX: Z09 Encounter for follow-up examination after completed treatment for conditions other than malignant neoplasm (principal); E66.01 Morbid (severe) obesity due to excess calories; I11.9 Hypertensive heart disease without heart failure; M17.0 Bilateral primary osteoarthritis of knee; M79.3 Panniculitis, unspecified; M19.90 Unspecified osteoarthritis, unspecified site; E50.9 Vitamin A deficiency, unspecified; Z68.26 Body mass index [BMI] 26.0-26.9, adult; Z91.011 Allergy to milk products; Z91.09 Other allergy status, other than to drugs and biological substances; Z91.048 Other nonmedicinal substance allergy status; Z79.899 Other long term (current) drug therapy; Z98.84 Bariatric surgery status
CPT/HCPCS: 97803; G0463; 99211

== ENCOUNTER → 2017-11-04 | Outpatient (CLI) | payer MEDICARE ==
[2017-11-04 12:43] LABS: HCT 39.9 % (34.0-46.0); HGB 13.7 gm/dL (11.4-16.0); MCH 30.8 pg (25.0-35.0); MCHC 34.2 g/dL (31.0-37.0); MCV 89.9 fL (80.0-100.0); Mean Platelet Volume 8.9; Platelet Count 184 k/uL (150-450); RBC 4.44 m/uL (3.80-5.40); RDW 13.4 % (11.5-15.5); WBC 3.7 k/uL (3.8-10.6)
[2017-11-04 12:55] LABS: ALT 29 U/L (9-52); AST 19 U/L (14-36); Albumin 3.8 g/dL (3.5-5.0); Alkaline Phosphatase 86 U/L (38-126); Anion Gap 7 mmol/L; Blood Urea Nitrogen 10 mg/dL (7-17); Calcium 9.3 mg/dL (8.4-10.2); Carbon Dioxide 32 mmol/L (22-30); Chloride 104 mmol/L (98-107); Cholesterol 133 mg/dL (<200); Glucose 82 mg/dL (74-99); HDL Cholesterol 54 mg/dL (40-60); LDL Cholesterol,Calculated 62 mg/dL (0-99); Phosphorus 4.1 mg/dL (2.5-4.5); Potassium 3.9 mmol/L (3.5-5.1); Sodium 143 mmol/L (137-145); Total Bilirubin 0.4 mg/dL (0.2-1.3); Total Protein 6.4 g/dL (6.3-8.2); Triglycerides 87 mg/dL (<150)
[2017-11-04 13:00] LABS: INR 1.1 (<1.2); Partial Thromboplastin Time 23.8 sec (22.0-30.0)
[2017-11-04 19:35] LABS: Iron Saturation 26.35 (12.00-45.00)
[2017-11-04 19:43] LABS: Vitamin D 25 Hydroxy 29.4 ng/mL (30.0-100.0)
[2017-11-04 19:49] LABS: Folate, Serum 16.6 ng/mL
[2017-11-04 20:42] LABS: Parathyroid Hormone Intact 90.1 pg/mL (14.0-72.0)
[2017-11-05 01:43] LABS: Hemoglobin A1C 4.7 % (4.0-6.0)
[2017-11-07 07:37] LABS: Vitamin B1 85 ug/L (38-122)
[2017-11-07 08:45] LABS: Vitamin A 36 ug/dL (38-106)
[2017-11-07 16:31] LABS: Zinc, Serum 69 ug/dL (60-130)
[2017-11-08 16:18] LABS: Selenium 117 mcg/L (63-160)
== END | disposition home or self-care (01) ==
LOC: LABWHC1 12:17
PROVIDERS: ATTEND Surgery Plastic and Reconstructive Surgery
DX: E21.1 Secondary hyperparathyroidism, not elsewhere classified (principal); D50.9 Iron deficiency anemia, unspecified; E89.1 Postprocedural hypoinsulinemia; E44.0 Moderate protein-calorie malnutrition; E55.9 Vitamin D deficiency, unspecified; K50.90 Crohn's disease, unspecified, without complications; N19 Unspecified kidney failure; K74.1 Hepatic sclerosis; E66.01 Morbid (severe) obesity due to excess calories
CPT/HCPCS: 36415; 80053; 80061; 82306; 82525; 82607; 82728; 82746; 83036; 83540; 83550; 83735; 83970; 84100; 84134; 84255; 84425; 84443; 84590; 84630; 85027; 85610; 85730

== ENCOUNTER → 2017-11-09 | Outpatient (CLI) | payer MEDICARE ==
[2017-11-09 12:14] VITALS: BP 161/95; PULSE 84; RESP 16; TEMP 98.7; BMI 24.4
--- NOTE | 2017-12-11 16:20 | P.PN ---
Subjective Progress Note Date: 11/09/17 DATE OF SERVICE: 11/09/2017 CHIEF COMPLAINT: Follow-up gastric bypass. HISTORY OF PRESENT ILLNESS: Paz Escalera is a 47-year-old female status post Aurea-en-Y gastric bypass 08/16/2016. She is more than 1 year out. She is mostly concerned about slowing down her weight loss. She reports increased fatigue. She is off all medications for her blood pressure, diabetes, pain medications including for fibromyalgia. She reports her blood sugars have been low between 50-60 mg/dL. She presents for follow-up. At her height of 5 feet 4 inches, her ideal body weight is 144 pounds. Her highest weight is 341 pounds. Today she comes in weighing 142 pounds. She has lost 199 pounds. Percent excess weight loss is 101%. Her body mass index is reduced from 58.7 down to 24.4. She has lost 10 pounds in 3 months since her last visit. Total BMI point reduction is 34.2. PAST MEDICAL HISTORY: 1. Morbid obesity. 2. Asthma. 3. Diabetes type 2, resolved. 4. Fibromyalgia. 5. Hyperlipidemia. 6. Hypertension, resolved. 7. Osteoarthritis. 8. Sjogren's disease. 9. Obstructive sleep apnea, resolved. 10. Chronic tachycardia, resolved. 11. Gastroesophageal reflux disease, resolved. 12. Irritable bowel syndrome. 13. Hypokalemia. 14. Peripheral venous insufficiency. 15. Lupus. 16. History of MRSA. 17. Anxiety. 18. Depression. PAST SURGICAL HISTORY: 1. Bilateral knee replacement. 2. Right knee replacement with sequelae of MRSA infection. 3. Cholecystectomy. 4. Hysterectomy. 5. Tonsillectomy. 6. Left knee arthroscopy. 7. Upper endoscopy. 8. Colonoscopy. 9. Laparoscopic Aurea-en-Y gastric bypass. MEDICATIONS: 1. Vitamin A. 2. Calcium carbonate. 3. Multivitamins. 4. Thiamine. ALLERGIES: Milk and environmental allergies. SOCIAL HISTORY: Lifelong nontobacco user. No current alcohol abuse. FAMILY HISTORY: Denies esophageal or stomach cancer. Has obesity in her family as well as diabetes. Family history of thyroid cancer. REVIEW OF SYSTEMS: CONSTITUTIONAL: At her height of 5 feet 4 inches, her ideal body weight is 144 pounds. Her highest weight is 341 pounds. Today she comes in weighing 142 pounds. She has lost 199 pounds. Percent excess weight loss is 101%. Her body mass index is reduced from 58.7 down to 24.4 CARDIOVASCULAR: She is off all blood pressure medications. GASTROINTESTINAL: No reports of gastroesophageal reflux disease or dysphagia. No reports of dumping syndrome. ENDOCRINE: Resolved diabetes type 2. No reports of thyroid disorder. RESPIRATORY: Resolved obstructive sleep apnea. No pneumonia. MUSCULOSKELETAL: Improved osteoarthritis of the lower back, including bilateral knees and hips. HEENT: She wears glasses. No reports of dysphagia. No reports of troubles with hearing. NEURO: No recent stroke or seizure disorder. PSYCH: History of depression without suicidal ideation. HEMATOLOGIC: No recent DVTs or pulmonary emboli in herself or family. SKIN: Reports chronic skin infections of panniculitis. PHYSICAL EXAM: VITAL SIGNS: 5 feet 4 inches, 142 pounds. Body mass index of 24.4. Vital Signs Temp 98.7 F 11/09/17 12:09 Pulse 84 11/09/17 12:09 Resp 16 11/09/17 12:09 BP 161/95 11/09/17 12:09 Pulse Ox ABDOMEN: Soft, nontender. Nondistended. Pannus over pubis of 10 cm with panniculitis. Weight of pannus over 8 pounds. MUSCULOSKELETAL: No clubbing, cyanosis, or edema. GENERAL: Well-developed female in no acute distress. HEENT: No scleral icterus. Extraocular movements grossly intact. NECK: Supple without lymphadenopathy. CHEST: Nonlabored respirations with equal bilateral excursions. CARDIOVASCULAR: Tachycardic. NEURO: No focal or lateralizing signs. Cranial nerves 2-12 grossly within normal limits. PSYCH: Appropriate affect. Alert and oriented to person, place and time. SKIN: Well perfused. Good skin turgor. LABS: Laboratory Last Values WBC 3.7 k/uL (3.8-10.6) L 11/04/17 12:20 RBC 4.44 m/uL (3.80-5.40) 11/04/17 12:20 Hgb 13.7 gm/dL (11.4-16.0) 11/04/17 12:20 Hct 39.9 % (34.0-46.0) 11/04/17 12:20 MCV 89.9 fL (80.0-100.0) 11/04/17 12:20 MCH 30.8 pg (25.0-35.0) 11/04/17 12:20 MCHC 34.2 g/dL (31.0-37.0) 11/04/17 12:20 RDW 13.4 % (11.5-15.5) 11/04/17 12:20 Plt Count 184 k/uL (150-450) 11/04/17 12:20 PT 11.0 sec (9.0-12.0) 11/04/17 12:20 INR 1.1 (<1.2) 11/04/17 12:20 APTT 23.8 sec (22.0-30.0) 11/04/17 12:20 Sodium 143 mmol/L (137-145) 11/04/17 12:20 Potassium 3.9 mmol/L (3.5-5.1) 11/04/17 12:20 Chloride 104 mmol/L (98-107) 11/04/17 12:20 Carbon Dioxide 32 mmol/L (22-30) H 11/04/17 12:20 Anion Gap 7 mmol/L 11/04/17 12:20 BUN 10 mg/dL (7-17) 11/04/17 12:20 Creatinine 0.70 mg/dL (0.52-1.04) 11/04/17 12:20 Est GFR (MDRD) Af Amer >60 (>60 ml/min/1.73 sqM) 11/04/17 12:20 Est GFR (MDRD) Non-Af >60 (>60 ml/min/1.73 sqM) 11/04/17 12:20 Glucose 82 mg/dL (74-99) 11/04/17 12:[address] Glu mg/dL 88 11/04/17 12:20 Hemoglobin A1c 4.7 % (4.0-6.0) 11/04/17 12:20 Calcium 9.3 mg/dL (8.4-10.2) 11/04/17 12:20 Phosphorus 4.1 mg/dL (2.5-4.5) 11/04/17 12:20 Magnesium 2.0 mg/dL (1.6-2.3) 11/04/17 12:20 Iron 88 ug/dL (50-170) 11/04/17 12:20 TIBC 334 ug/dL (228-460) 11/04/17 12:20 Iron Saturation 26.35 (12.00-45.00) 11/04/17 12:20 Ferritin 59.8 ng/mL (10.0-291.0) 11/04/17 12:20 Total Bilirubin 0.4 mg/dL (0.2-1.3) 11/04/17 12:20 AST 19 U/L (14-36) 11/04/17 12:20 ALT 29 U/L (9-52) 11/04/17 12:20 Alkaline Phosphatase 86 U/L (38-126) 11/04/17 12:20 Total Protein 6.4 g/dL (6.3-8.2) 11/04/17 12:20 Albumin 3.8 g/dL (3.5-5.0) 11/04/17 12:20 Prealbumin 16.0 mg/dL (18.0-42.0) L 11/04/17 12:20 Triglycerides 87 mg/dL (<150) 11/04/17 12:20 Cholesterol 133 mg/dL (<200) 11/04/17 12:20 LDL Cholesterol, Calc 62 mg/dL (0-99) 11/04/17 12:20 HDL Cholesterol 54 mg/dL (40-60) 11/04/17 12:20 Vitamin A 36 ug/dL (38-106) L 11/04/17 12:20 Vitamin B1 85 ug/L (38-122) 11/04/17 12:20 Vitamin B12 363.0 pg/mL (200.0-944.0) 11/04/17 12:20 Vitamin D 25-Hydroxy 29.4 ng/mL (30.0-100.0) L 11/04/17 12:20 Folate 16.6 ng/mL 11/04/17 12:20 TSH 1.390 mIU/L (0.465-4.680) 11/04/17 12:20 PTH Intact 90.1 pg/mL (14.0-72.0) H 11/04/17 12:20 Copper 1201 ug/L (810-1990) 11/04/17 12:20 Selenium 117 mcg/L (63-160) 11/04/17 12:20 Zinc 69 ug/dL (60-130) 11/04/17 12:20 Vitamin A low. Vitamin D low. PTH elevated Prealbumin level low WBC low ASSESSMENT: 1. Morbid obesity due to excess calories. 2. Body mass index reduced from 58.7 down to 24.4. 3. Status post Aurea-en-Y gastric bypass. 4. Status post massive weight loss of 189 pounds lifetime. 5. Gastroesophageal reflux disease, resolved. 6. Diabetes type 2, resolved. 7. Hypertension with hypertensive heart disease, improved. 8. Osteoarthritis of the bilateral knees improved. 9. Panniculitis. 10. Vitamin A deficiency. 11. Fatigue. 12. Leukopenia 13. Vitamin D deficiency 14. Secondary hyperparathyroidism 15. Family history of thyroid cancer. PLAN: 1. Her thyroid level was within normal limits however she reports possible thyroid nodule. Recommend ultrasound of the neck. 2. Recommend increase in fats in her diet. 3. Prealbumin level was low. Recommend combination diet including increased fats and protein with carbs. 4. Recommend food diary to identify hypoglycemic events. 5. Vitamin A supplement including vitamin A rich foods 6. Increase calcium intake 1500 mg daily. 7. Recommend vitamin D supplement. Objective - Vital Signs Vital signs: Vital Signs Temp 98.7 F 11/09/17 12:09 Pulse 84 11/09/17 12:09 Resp 16 11/09/17 12:09 BP 161/95 11/09/17 12:09 Pulse Ox Intake & Output 11/08/17 11/09/17 11/09/17 18:59 06:59 18:59 Weight 64.552 kg
== END | disposition home or self-care (01) ==
LOC: BARWHC3 11:30
PROVIDERS: ATTEND Surgery Plastic and Reconstructive Surgery
DX: Z09 Encounter for follow-up examination after completed treatment for conditions other than malignant neoplasm (principal); E66.01 Morbid (severe) obesity due to excess calories; I11.9 Hypertensive heart disease without heart failure; M17.0 Bilateral primary osteoarthritis of knee; M79.3 Panniculitis, unspecified; E50.9 Vitamin A deficiency, unspecified; R53.83 Other fatigue; D72.819 Decreased white blood cell count, unspecified; E55.9 Vitamin D deficiency, unspecified; N25.81 Secondary hyperparathyroidism of renal origin; Z80.8 Family history of malignant neoplasm of other organs or systems; Z71.3 Dietary counseling and surveillance; Z79.899 Other long term (current) drug therapy; Z68.24 Body mass index [BMI] 24.0-24.9, adult; Z98.84 Bariatric surgery status; Z91.011 Allergy to milk products; Z91.048 Other nonmedicinal substance allergy status
CPT/HCPCS: 97803; G0463; 99211

== ENCOUNTER → 2017-11-23 | Outpatient (CLI) | payer MEDICARE ==
[~2017-11-23] MED LIST: CYANOCOBALAMIN 1,000 MCG/ML 1 ML VIAL IM ONE
[2017-11-23 15:04] VITALS: BP 143/85; PULSE 87; RESP 16; TEMP 97.7; BMI 24.0
== END | disposition home or self-care (01) ==
LOC: BARWHC3 13:50
PROVIDERS: ATTEND Surgery Plastic and Reconstructive Surgery
DX: D51.9 Vitamin B12 deficiency anemia, unspecified (principal)
CPT/HCPCS: 96372; J3420; G0463; 99211

== ENCOUNTER → 2017-11-24 | Outpatient (CLI) | payer MEDICARE ==
--- NOTE | 2017-11-24 14:19 | US ---
EXAMINATION TYPE: US thyroid st tissue head/neck DATE OF EXAM: 11/24/2017 COMPARISON: NONE CLINICAL HISTORY: R94.6 ABN THYROID LABS,R22.0 SWELLING/MASS. Difficult swallowing GLAND SIZE: Right Lobe: 4.6 x 1.7 x 1.3 cm Overall Parenchyma: homogenous Left Lobe: 4.1 x 1.4 x 0.9 cm Overall Parenchyma: homogeneous Isthmus Thickness: 0.3 cm NODULES RIGHT: # of nodules measured on right: 1 appears to be para thyroid 1. 0.5 X 0.5 x 0.4 cm echogenic nodule at the lower pole with margins; . This nodule is round and shows no intranodular vascularity. Prior size: no prior LEFT: # of nodules measured on left: 0 ISTHMUS: # of nodules measured in the isthmus: 0 Bilateral neck scanned, no evidence of lymphadenopathy. IMPRESSION: Subcentimeter nonspecific nodule of the right thyroid lobe.
== END | disposition home or self-care (01) ==
LOC: RADUSWWP 13:34
PROVIDERS: ATTEND Surgery Plastic and Reconstructive Surgery
DX: E04.1 Nontoxic single thyroid nodule (principal)
CPT/HCPCS: 76536

== ENCOUNTER → 2018-02-03 | Outpatient (CLI) | payer MEDICARE ==
--- NOTE | 2018-02-06 14:47 | MM ---
Reason for exam: screening (asymptomatic). History: Patient is postmenopausal and is nulliparous. Physical Findings: A clinical breast exam by your physician is recommended on an annual basis and results should be correlated with mammographic findings. MG 3D Screening Mammo W/Cad Bilateral CC and MLO view(s) were taken. There are scattered fibroglandular densities. There are typically benign round calcifications in the right breast. There is a 6mm nodularity in the left breast presumed benign lymph node toward axilla. There is no discrete abnormality. ASSESSMENT: Benign, BI-RAD 2 RECOMMENDATION: Routine screening mammogram of both breasts in 1 year.
== END | disposition home or self-care (01) ==
LOC: RADMAMWWP 14:48
PROVIDERS: ATTEND Internal Medicine
DX: Z12.31 Encounter for screening mammogram for malignant neoplasm of breast (principal)
CPT/HCPCS: 77063; 77067

== ENCOUNTER → 2018-02-08 | Outpatient (CLI) | payer MEDICARE ==
[2018-02-08 15:15] VITALS: BP 158/73; PULSE 64; RESP 16; TEMP 98.4; BMI 24.2
--- NOTE | 2018-02-08 15:57 | P.GSHP ---
History of Present Illness H&P Date: 02/08/18 DATE OF SERVICE: 02/08/2018 CHIEF COMPLAINT: Follow-up gastric bypass. HISTORY OF PRESENT ILLNESS: Paz Escalera is a 47-year-old female status post Aurea-en-Y gastric bypass 08/16/2016. She is more than 1 year and 5 months out. She reports no more low blood sugars. She is eating more frequently. Her weight has been stable for the last 4 months. Last visit was 11/23/2017. Since last visit, she gained 1 pound in 3 months. She comes in concerned with chronic panniculitis ongoing for more than 1 year despite treatment. At her height of 5 feet 4 inches, her ideal body weight is 144 pounds. Her highest weight is 352 pounds. Today she comes in weighing 141 pounds. She has lost 211 pounds. Percent excess weight loss is 102%. Her body mass index is reduced from 60.5 down to 24.2. PAST MEDICAL HISTORY: 1. Morbid obesity, BMI 60.5, initial 2. Asthma. 3. Diabetes type 2, resolved. 4. Fibromyalgia. 5. Hyperlipidemia. 6. Hypertension, resolved. 7. Osteoarthritis. 8. Sjogren's disease. 9. Obstructive sleep apnea, resolved. 10. Chronic tachycardia, resolved. 11. Gastroesophageal reflux disease, resolved. 12. Irritable bowel syndrome. 13. Hypokalemia. 14. Peripheral venous insufficiency. 15. Lupus. 16. History of MRSA. 17. Anxiety. 18. Depression. PAST SURGICAL HISTORY: 1. Bilateral knee replacement. 2. Right knee replacement with sequelae of MRSA infection. 3. Cholecystectomy. 4. Hysterectomy. 5. Tonsillectomy. 6. Left knee arthroscopy. 7. Upper endoscopy. 8. Colonoscopy. 9. Laparoscopic Aurea-en-Y gastric bypass. MEDICATIONS: 1. Vitamin A. 2. Calcium carbonate. 3. Multivitamins. 4. Thiamine. ALLERGIES: Milk and environmental allergies. SOCIAL HISTORY: Lifelong nontobacco user. No current alcohol abuse. FAMILY HISTORY: Denies esophageal or stomach cancer. Has obesity in her family as well as diabetes. Family history of thyroid cancer. REVIEW OF SYSTEMS: CONSTITUTIONAL: At her height of 5 feet 4 inches, her ideal body weight is 144 pounds. Her highest weight is 352 pounds. Today she comes in weighing 141 pounds. She has lost 211 pounds. Percent excess weight loss is 102%. Her body mass index is reduced from 60.5 down to 24.2. CARDIOVASCULAR: She is off all blood pressure medications. GASTROINTESTINAL: No reports of gastroesophageal reflux disease or dysphagia. No reports of dumping syndrome. ENDOCRINE: Resolved diabetes type 2. No reports of thyroid disorder. RESPIRATORY: Resolved obstructive sleep apnea. No pneumonia. MUSCULOSKELETAL: Improved osteoarthritis of the lower back, including bilateral knees and hips. HEENT: She wears glasses. No reports of dysphagia. No reports of troubles with hearing. NEURO: No recent stroke or seizure disorder. PSYCH: History of depression without suicidal ideation. HEMATOLOGIC: No recent DVTs or pulmonary emboli in herself or family. SKIN: Reports chronic skin infections of panniculitis. PHYSICAL EXAM: VITAL SIGNS: 5 feet 4 inches, 141 pounds. Body mass index of 24.2. Vital Signs Temp 98.4 F 02/08/18 15:12 Pulse 64 02/08/18 15:12 Resp 16 02/08/18 15:12 BP 158/73 02/08/18 15:12 Pulse Ox Intake & Output 02/07/18 02/08/18 02/08/18 18:59 06:59 18:59 Weight 63.957 kg ABDOMEN: Soft, nontender. Nondistended. Pannus over pubis by 6 cm. Has hyperemia at skin consistent with panniculitis. MUSCULOSKELETAL: No clubbing, cyanosis, or edema. GENERAL: Well-developed female in no acute distress. HEENT: No scleral icterus. Extraocular movements grossly intact. NECK: Supple without lymphadenopathy. CHEST: Nonlabored respirations with equal bilateral excursions. CARDIOVASCULAR: Tachycardic. NEURO: No focal or lateralizing signs. Cranial nerves 2-12 grossly within normal limits. PSYCH: Appropriate affect. Alert and oriented to person, place and time. SKIN: Well perfused. Good skin turgor. ASSESSMENT: 1. Morbid obesity due to excess calories. 2. Body mass index reduced from 60.5 down to 24.2. 3. Status post Aurea-en-Y gastric bypass. 4. Status post massive weight loss of 211 pounds lifetime. 5. Panniculitis. 6. Vitamin A deficiency. 7. Leukopenia 8. Vitamin D deficiency 9. Secondary hyperparathyroidism 10. Family history of thyroid cancer. 11. Left thyroid nodule 12. Reactive hypoglycemia, resolved. 13. Dietary surveillance and counseling PLAN: 1. Her weight is stable 2. She is still using Nystatin powder. Will prescribe refill. 3. Handbook of panniculectomy dispensed. 4. Two week protein prior to surgery. 5. Inpatient hospitalization over 2 nights described. 6. DVT prophylaxis. 7. Antibiotic prophylaxis. 8. Recommend panniculectomy as her treatment has been unresponsive for more than one year. Additionally, she is maintaining successful weight loss. 9. Benefits and risks of surgery including flap failure, seroma, infection, bleeding, and placement of drains were described. Past Medical History Past Medical History: Asthma, Diabetes Mellitus, Fibromyalgia, GERD/Reflux, Hyperlipidemia, Hypertension, Osteoarthritis (OA), Skin Disorder, Sleep Apnea/ CPAP/BIPAP Additional Past Medical History / Comment(s): Sleep apnea, tachycardia. USES CPAP. Shogen's syndrome. IBS, low potassium, peripheral venous insufficiency, lupus. History of Any Multi-Drug Resistant Organisms: None Reported, MRSA Date of last positivie culture/infection: 2013 MDRO Source:: knee joint 2013 finished rx in December 2015 Past Surgical History: Bariatric Surgery, Cholecystectomy, Hysterectomy, Joint Replacement, Orthopedic Surgery, Tonsillectomy Additional Past Surgical History / Comment(s): 08/16/16 Laparoscopic Aurea-En Y gastric bypass with EGD. Other surgical hx: Laparoscopy x3. AT 1 WEEKS OLD, REPAIR OF PYLORIC STENOSIS. Left knee arthroscopic x4 with reconstruction x2. Total knee replacement 2008. Right total knee replacement 2009, removal of right knee replacement (MRSA) and spacer inserted. Past Anesthesia/Blood Transfusion Reactions: Postoperative Nausea & Vomiting ( PONV) Past Psychological History: Anxiety Additional Psychological History / Comment(s): Prozac daily to decrease anxiety. Pt resides with her spouse. She occasionally uses a cane or walker to ambulate. She drives. Smoking Status: Never smoker Past Alcohol Use History: None Reported Past Drug Use History: None Reported - Past Family History Mother Family Medical History: Congestive Heart Failure (CHF), Diabetes Mellitus, Hyperlipidemia, Hypertension, Thyroid Disorder Medications and Allergies Home Medications Medication Instructions Recorded Confirmed Type Calcium Carbonate [Calcium] 600 mg PO BID #60 tablet 11/20/16 02/08/18 Rx Thiamine [Vitamin B-1] 100 mg PO DAILY #90 tablet 11/20/16 02/08/18 Rx Vitamin A 8,000 unit PO DAILY #30 capsule 11/20/16 02/08/18 Rx Multivitamin [Men's Multi-Vitamin] 1 each PO DAILY 02/17/17 02/08/18 History Nystatin 100,000 Unit/gm Powd 1 applic TOPICAL BID #60 powder 02/17/17 02/08/18 Rx [Mycostatin Powder] Nystatin 100,000 Unit/gm Powd 1 applic TOPICAL BID #60 powder 05/19/17 02/08/18 Rx [Mycostatin Powder] Allergies Allergy/AdvReac Type Severity Reaction Status Date / Time milk AdvReac Diarrhea Verified 02/08/18 16:50 environment Allergy Mild Unknown Uncoded 02/08/18 16:50 Surgical - Exam Vital Signs Temp Pulse Resp BP 98.4 F 64 16 158/73 02/08/18 15:12 02/08/18 15:12 02/08/18 15:12 02/08/18 15:12
== END | disposition home or self-care (01) ==
LOC: BARWHC3 13:55
PROVIDERS: ATTEND Surgery Plastic and Reconstructive Surgery
DX: Z09 Encounter for follow-up examination after completed treatment for conditions other than malignant neoplasm (principal); E66.01 Morbid (severe) obesity due to excess calories; K21.9 Gastro-esophageal reflux disease without esophagitis; R63.4 Abnormal weight loss; M79.3 Panniculitis, unspecified; E50.9 Vitamin A deficiency, unspecified; D72.819 Decreased white blood cell count, unspecified; E55.9 Vitamin D deficiency, unspecified; N25.81 Secondary hyperparathyroidism of renal origin; J30.2 Other seasonal allergic rhinitis; E04.1 Nontoxic single thyroid nodule; E16.1 Other hypoglycemia; E11.9 Type 2 diabetes mellitus without complications; M79.7 Fibromyalgia; E78.5 Hyperlipidemia, unspecified; I10 Essential (primary) hypertension; M19.90 Unspecified osteoarthritis, unspecified site; G47.30 Sleep apnea, unspecified; Z80.8 Family history of malignant neoplasm of other organs or systems; Z71.3 Dietary counseling and surveillance; Z99.89 Dependence on other enabling machines and devices; Z98.890 Other specified postprocedural states; Z90.49 Acquired absence of other specified parts of digestive tract; Z68.24 Body mass index [BMI] 24.0-24.9, adult; Z98.84 Bariatric surgery status; Z79.899 Other long term (current) drug therapy; Z91.011 Allergy to milk products
CPT/HCPCS: 99211

== ENCOUNTER → 2018-03-24 | Outpatient (CLI) | payer MEDICARE ==
[2018-03-24 10:05] LABS: Basophils % (A) 1 %; Eosinophils # (A) 0.2 k/uL (0-0.7); Eosinophils % (A) 5 %; HCT 41.1 % (34.0-46.0); HGB 13.4 gm/dL (11.4-16.0); Lymphocytes # (A) 1.6 k/uL (1.0-4.8); Lymphocytes % (A) 36 %; MCH 29.3 pg (25.0-35.0); MCHC 32.6 g/dL (31.0-37.0); MCV 89.9 fL (80.0-100.0); Mean Platelet Volume 8.6; Monocytes # (A) 0.3 k/uL (0-1.0); Monocytes % (A) 6 %; Neutrophils # (A) 2.4 k/uL (1.3-7.7); Neutrophils % (A) 51 %; Platelet Count 183 k/uL (150-450); RBC 4.57 m/uL (3.80-5.40); RDW 13.6 % (11.5-15.5); WBC 4.6 k/uL (3.8-10.6)
[2018-03-24 10:22] LABS: ALT 41 U/L (9-52); AST 24 U/L (14-36); Alkaline Phosphatase 89 U/L (38-126); Anion Gap 12 mmol/L; Blood Urea Nitrogen 15 mg/dL (7-17); Calcium 9.2 mg/dL (8.4-10.2); Carbon Dioxide 27 mmol/L (22-30); Chloride 104 mmol/L (98-107); Glucose 81 mg/dL (74-99); Potassium 4.3 mmol/L (3.5-5.1); Sodium 143 mmol/L (137-145); Total Bilirubin 0.5 mg/dL (0.2-1.3); Total Protein 6.3 g/dL (6.3-8.2)
== END | disposition home or self-care (01) ==
LOC: LABPAT 09:31
PROVIDERS: ATTEND Surgery Plastic and Reconstructive Surgery
DX: Z01.812 Encounter for preprocedural laboratory examination (principal)
CPT/HCPCS: 80053; 85025

== ENCOUNTER 2018-04-17 06:02 | Inpatient (IN) | payer MEDICARE ==
[2018-04-03 14:51] VITALS: BMI 24.3
[~2018-04-17 06:02] MED LIST changes: -CYANOCOBALAMIN 1,000 MCG/ML 1 ML VIAL IM ONE; +DEXAMETHASONE SOD PHOSPHATE 10 MG/ML 1 ML VIAL IV ONE; +MIDAZOLAM 2 MG/2 ML VIAL IV PRN; +ONDANSETRON 4 MG/2 ML VIAL IVP ONE; +Pre Op ABX Message 1 EACH MISC MISCELLANE ONE; +SCOPOLAMINE 1.5MG/72HR PATCH TRANSDERM ONE
[2018-04-17] MEDS ORDERED: HEPARIN SODIUM,PORCINE 5,000 UNIT/ML 1 ML VIAL SQ ONE (07:08)
[2018-04-17] MEDS ORDERED: ceFAZolin IN SWFI 2 GM/20 ML SYRINGE IVP ONE (07:08)
--- NOTE | 2018-04-17 07:11 | P.GSHP ---
History of Present Illness H&P Date: 04/17/18 DATE OF SERVICE: 04/17/2018 CHIEF COMPLAINT: Follow-up gastric bypass. HISTORY OF PRESENT ILLNESS: Paz Escalera is a 47-year-old female status post Aurea-en-Y gastric bypass 08/16/2016. She is more than 1 year and 5 months out. She reports no more low blood sugars. She is eating more frequently. Her weight has been stable for the last 4 months. She comes in concerned with chronic panniculitis ongoing for more than 1 year despite treatment. At her height of 5 feet 4 inches, her ideal body weight is 144 pounds. Her highest weight is 352 pounds. Today she comes in weighing 141 pounds. She has lost 211 pounds. Percent excess weight loss is 102%. Her body mass index is reduced from 60.5 down to 24.2. PAST MEDICAL HISTORY: 1. Morbid obesity, BMI 60.5, initial 2. Asthma. 3. Diabetes type 2, resolved. 4. Fibromyalgia. 5. Hyperlipidemia. 6. Hypertension, resolved. 7. Osteoarthritis. 8. Sjogren's disease. 9. Obstructive sleep apnea, resolved. 10. Chronic tachycardia, resolved. 11. Gastroesophageal reflux disease, resolved. 12. Irritable bowel syndrome. 13. Hypokalemia. 14. Peripheral venous insufficiency. 15. Lupus. 16. History of MRSA. 17. Anxiety. 18. Depression. PAST SURGICAL HISTORY: 1. Bilateral knee replacement. 2. Right knee replacement with sequelae of MRSA infection. 3. Cholecystectomy. 4. Hysterectomy. 5. Tonsillectomy. 6. Left knee arthroscopy. 7. Upper endoscopy. 8. Colonoscopy. 9. Laparoscopic Aurea-en-Y gastric bypass. MEDICATIONS: 1. Vitamin A. 2. Calcium carbonate. 3. Multivitamins. 4. Thiamine. ALLERGIES: Milk and environmental allergies. SOCIAL HISTORY: Lifelong nontobacco user. No current alcohol abuse. FAMILY HISTORY: Denies esophageal or stomach cancer. Has obesity in her family as well as diabetes. Family history of thyroid cancer. REVIEW OF SYSTEMS: CONSTITUTIONAL: At her height of 5 feet 4 inches, her ideal body weight is 144 pounds. Her highest weight is 352 pounds. Today she comes in weighing 141 pounds. She has lost 211 pounds. Percent excess weight loss is 102%. Her body mass index is reduced from 60.5 down to 24.2. CARDIOVASCULAR: She is off all blood pressure medications. GASTROINTESTINAL: No reports of gastroesophageal reflux disease or dysphagia. No reports of dumping syndrome. ENDOCRINE: Resolved diabetes type 2. No reports of thyroid disorder. RESPIRATORY: Resolved obstructive sleep apnea. No pneumonia. MUSCULOSKELETAL: Improved osteoarthritis of the lower back, including bilateral knees and hips. HEENT: She wears glasses. No reports of dysphagia. No reports of troubles with hearing. NEURO: No recent stroke or seizure disorder. PSYCH: History of depression without suicidal ideation. HEMATOLOGIC: No recent DVTs or pulmonary emboli in herself or family. SKIN: Reports chronic skin infections of panniculitis. PHYSICAL EXAM: VITAL SIGNS: 5 feet 4 inches, 141 pounds. Body mass index of 24.2. ABDOMEN: Soft, nontender. Nondistended. Pannus over pubis by 6 cm. Has hyperemia at skin consistent with panniculitis. MUSCULOSKELETAL: No clubbing, cyanosis, or edema. GENERAL: Well-developed female in no acute distress. HEENT: No scleral icterus. Extraocular movements grossly intact. NECK: Supple without lymphadenopathy. CHEST: Nonlabored respirations with equal bilateral excursions. CARDIOVASCULAR: Tachycardic. NEURO: No focal or lateralizing signs. Cranial nerves 2-12 grossly within normal limits. PSYCH: Appropriate affect. Alert and oriented to person, place and time. SKIN: Well perfused. Good skin turgor. ASSESSMENT: 1. Morbid obesity due to excess calories. 2. Body mass index reduced from 60.5 down to 24.2. 3. Status post Aurea-en-Y gastric bypass. 4. Status post massive weight loss of 211 pounds lifetime. 5. Panniculitis. 6. Vitamin A deficiency. 7. Leukopenia 8. Vitamin D deficiency 9. Secondary hyperparathyroidism 10. Family history of thyroid cancer. 11. Left thyroid nodule 12. Reactive hypoglycemia, resolved. 13. Dietary surveillance and counseling PLAN: 1. Her weight is stable 2. She is still using Nystatin powder. Will prescribe refill. 3. Handbook of panniculectomy dispensed. 4. Two week protein prior to surgery. 5. Inpatient hospitalization over 2 nights described. 6. DVT prophylaxis. 7. Antibiotic prophylaxis. 8. Recommend panniculectomy as her treatment has been unresponsive for more than one year. Additionally, she is maintaining successful weight loss. 9. Benefits and risks of surgery including flap failure, seroma, infection, bleeding, and placement of drains were described. Past Medical History Past Medical History: Asthma, Diabetes Mellitus, Fibromyalgia, GERD/Reflux, Hyperlipidemia, Hypertension, Osteoarthritis (OA), Pneumonia, Skin Disorder, Sleep Apnea/CPAP/BIPAP, Syncope Additional Past Medical History / Comment(s): Sleep apnea, asthma, tachycardia, acid reflux, hypertension, diabetes all resolved with 200+lb weight loss after Bariatric Surgery 08/16/16. Shogen's syndrome, IBS, peripheral venous insufficiency, lupus. Hypogylcemia/syncope episodes if does not eat every 2 hrs or so. Hx Pneumonia few yrs ago. Current psoriasis on elbow. History of Any Multi-Drug Resistant Organisms: MRSA Date of last positivie culture/infection: 2013 MDRO Source:: knee joint 2013 finished rx in December 2015 Past Surgical History: Bariatric Surgery, Cholecystectomy, Hysterectomy, Joint Replacement, Orthopedic Surgery, Tonsillectomy Additional Past Surgical History / Comment(s): 08/16/16 Laparoscopic Aurea-En Y gastric bypass with EGD. Laparoscopy x3. AT 1 WEEKS OLD, REPAIR OF PYLORIC STENOSIS. Left knee arthroscopy x4 with reconstruction x2. Total left knee replacement, total right total knee replacement 2009, removal of right knee replacement (MRSA) and spacer inserted 2013 and on antiboitics until 2015. Past Anesthesia/Blood Transfusion Reactions: Postoperative Nausea & Vomiting ( PONV) Smoking Status: Never smoker - Past Family History Mother Family Medical History: Congestive Heart Failure (CHF), Diabetes Mellitus, Hyperlipidemia, Hypertension, Thyroid Disorder Medications and Allergies Home Medications Medication Instructions Recorded Confirmed Type Calcium Carbonate [Calcium] 1,200 mg PO BID 04/03/18 04/17/18 History Ergocalciferol [Vitamin D2] 50,000 unit PO DAILY 04/03/18 04/17/18 History Multivitamins, Thera [Multivitamin 1 tab PO DAILY 04/03/18 04/17/18 History (formulary)] Thiamine [Vitamin B-1] 250 mg PO DAILY 04/03/18 04/17/18 History Vitamin A 2,400 mg PO DAILY 04/03/18 04/17/18 History Allergies Allergy/AdvReac Type Severity Reaction Status Date / Time Milk Containing Products AdvReac Diarrhea Verified 04/17/18 07:03 [Dairy] environment Allergy Mild Unknown Uncoded 04/17/18 07:03
[2018-04-17 07:22] LABS: Glucose,Whole Blood 79 mg/dL (75-99)
[2018-04-17] MEDS: LACTATED RINGERS 1,000 ML IV SCH (07:23)
[2018-04-17] MEDS ORDERED: PROPOFOL 10 MG/ML 20 ML VIAL IV ONE (07:25)
[2018-04-17] MEDS ORDERED: MIDAZOLAM 2 MG/2 ML VIAL ONE (07:25)
[2018-04-17] MEDS ORDERED: GLYCOPYRROLATE 0.2 MG/ML 2 ML VIAL ONE (07:25)
[2018-04-17] MEDS ORDERED: SUCCINYLCHOLINE CHLORIDE 100 MG/5 ML SYR IV ONE (07:25)
[2018-04-17] MEDS ORDERED: ePHEDrine SULFATE/0.9% NACL/PF 50 MG/5 ML SYRINGE IV ONE (07:25)
[2018-04-17] MEDS ORDERED: ROCURONIUM BROMIDE 10 MG/ML 10 ML VIAL IV ONE (07:25)
[2018-04-17] MEDS ORDERED: LIDOCAINE 1% INJ 10MG/ML (20 ML MDV) ONE (07:25)
[2018-04-17] MEDS ORDERED: PHENYLEPHRINE-0.9% NACL SYG 1 MG/10 ML SYRINGE ONE (07:25)
[2018-04-17] MEDS ORDERED: NEOSTIGMINE 1 MG/ML 10 ML VIAL ONE (07:25)
[2018-04-17] MEDS ORDERED: fentaNYL (PF) 50 MCG/ML 2 ML AMP ONE (07:25)
[2018-04-17] MEDS ORDERED: LACTATED RINGERS 1,000 ML IV ONE (08:16)
--- NOTE | 2018-04-17 10:00 | P.OP ---
Date of Procedure: 04/17/18 Description of Procedure: SURGEON: DEDRICK SANDHU MD PREOPERATIVE DIAGNOSES: 1. Morbid obesity due to excess calories. 2. Body mass index reduced from 60.5 down to 24.2. 3. Status post Aurea-en-Y gastric bypass. 4. Status post massive weight loss of 211 pounds lifetime. 5. Panniculitis. 6. Vitamin A deficiency. 7. Leukopenia 8. Vitamin D deficiency 9. Secondary hyperparathyroidism 10. Family history of thyroid cancer. 11. Left thyroid nodule 12. Reactive hypoglycemia, resolved. 13. Dietary surveillance and counseling POSTOPERATIVE DIAGNOSES: 1. Morbid obesity due to excess calories. 2. Body mass index reduced from 60.5 down to 24.2. 3. Status post Aurea-en-Y gastric bypass. 4. Status post massive weight loss of 211 pounds lifetime. 5. Panniculitis. 6. Vitamin A deficiency. 7. Leukopenia 8. Vitamin D deficiency 9. Secondary hyperparathyroidism 10. Family history of thyroid cancer. 11. Left thyroid nodule 12. Reactive hypoglycemia, resolved. 13. Dietary surveillance and counseling 14. Ventral hernia, reducible, 5 x 29 cm unrelated to previous bariatric procedure OPERATION: 1. Panniculectomy, 2.1 pounds. 2. Primary repair of ventral hernia 5 x 29 cm without mesh. ANESTHESIA: General ESTIMATED BLOOD LOSS: 350 mL SPECIMENS REMOVED: Pannus 2.1 pounds. COMPLICATIONS: None. CONDITION: Stable. DRAINS: Two #19 Otto drains below abdominal flap extending through the pubis. OPERATIVE FINDINGS: 1. Pannus weighing 2.1 pounds, excised. 2. Abdominal ventral hernia of 5 x 29 cm along the midline repaired primarily using fascial imbrication. INDICATIONS: Paz Escalera is a 47-year-old female status post Aurea-en-Y gastric bypass 08/16/2016. She is more than 1 year and 5 months out. She reports no more low blood sugars. She is eating more frequently. Her weight has been stable for the last 4 months. She comes in concerned with chronic panniculitis ongoing for more than 1 year despite treatment. At her height of 5 feet 4 inches, her ideal body weight is 144 pounds. Her highest weight is 352 pounds. Today she comes in weighing 141 pounds. She has lost 211 pounds. Percent excess weight loss is 102%. Her body mass index is reduced from 60.5 down to 24.2. She presents for a panniculectomy. Despite medical therapy with prescription powders such as Nystatin over 1 year, she has developed severe medical refractory panniculitis. Benefits and risks of the procedure including bleeding, infection, cosmetic deformity, abdominal seromas, placement of drains , risk of flap failure were described at length. Informed consent was obtained. DESCRIPTION: In the preanesthesia care unit the patient was marked with an indelible marker. She had also been given heparin subcutaneously. The patient was brought into the operating room and laid in supine position. After general induction, a Guerra catheter was placed. The abdomen was then prepped and draped in standard sterile fashion using ChloraPrep. The skin was prepped as far laterally to the back, inferiorly to the upper thighs and superiorly to above the bilateral breasts. A timeout protocol was confirmed with the surgical team regarding patient's name , procedure to be performed, including preoperative medications. She had received Ancef 2 grams IV antibiotics. Once the time-out protocol was confirmed with the surgical team, the patient was re-marked with indelible marker whereby the midline of the xiphoid to the mons pubis was marked. The anterior/superior iliac spine along the bilateral hips was also marked. At 8 cm above the pubis commissure a transverse incision was made for the inferior portion of the flap. Using a #10 blade, the incision was taken from the midline laterally to above the anterior/superior iliac spine, initially on the left side of the patient and then on the right side of the patient. Electro-Bovie cautery was used to control for hemostasis. The dissection was taken down to the level of the fascia. Landmarks used were the xiphoid process as well as the bilateral costal margins for the superior margin. Care was taken to avoid any creation of dog ears during the dissection. Once hemostasis was checked, a large ventral hernia fascial defect of 5 x 29 cm was identified unrelated to her bariatric procedure. During this dissection, the umbilicus was truncated at its fascial insertion. Starting from the xiphoid process, fascial imbrication was performed using #2 Ethibond. Multiple facial imbrications at least 4 layers were performed. The ventral hernia defect was completely repaired and closed. Hemostasis was once again checked with electro-Bovie cautery and all defects were addressed. Attention was now brought to closure of the flap. Using stainless steel skin carson, the midline was once again marked of the upper flap as well as the pubic commissure. The patient was placed in a flexed position of approximately 30 degrees at the hips. The pannus was extended inferiorly to the feet. The upper flap was created once the excess skin was excised. Again care was taken to avoid any dog ears along the lateral aspect of the incisions. Once excised, the pannus was weighed at 2.1 pounds. The upper and lower flaps were reapproximated at the midline and then laterally to the skin with skin carson. Once reapproximated, the skin was closed in layers using 0 Vicryl for the superficial fascial system followed by running 3- 0 Monocryl for the deep dermis in a running subcuticular fashion. Prior to skin closure, two round #19 Otto drains were placed underneath the flap and brought out just inferior to the incision along the pubis. Drain stitch using 2-0 nylon was placed. Once the incision was closed, bulb suction was attached. Hemostasis was checked. At the end of the procedure, the needle, sponge and instrument count was verified correct. The skin was cleansed with hydrogen peroxide. Liquid tape including adhesive was placed along the length of the incision. Optifoam long silver dressing was also placed over the incision and placed over the RALEIGH sites. The patient was then transferred to a hospital bed in a beach chair position. An abdominal binder was placed and marked. The patient was taken to the postanesthesia care unit in stable condition, awake and extubated. Total time for procedure from skin to skin was 103 minutes. The intraoperative findings were discussed with her over the phone who was pleased with the level of care.
[2018-04-17] MEDS ORDERED: TRIMETHOBENZAMIDE 100 MG/ML 2 ML VIAL IM PRN (10:01)
[2018-04-17 10:16] LABS: Glucose,Whole Blood 125 mg/dL (75-99)
[2018-04-17] MEDS: fentaNYL (PF) 50 MCG/ML 2 ML AMP IV PRN ×2 (10:21→10:46)
[2018-04-17] MEDS ORDERED: SODIUM CHLORIDE 0.9% 1,000 ML IV ONE (11:04)
[2018-04-17] MEDS: ONDANSETRON 4 MG/2 ML VIAL IVP PRN ×2 (11:49→21:09)
[2018-04-17] MEDS: HYDROmorphone 0.5 MG/0.5 ML SYRINGE IVP PRN ×2 (14:12→19:52)
[2018-04-17] MEDS: ceFAZolin IN SWFI 2 GM/20 ML SYRINGE IVP SCH (17:10)
[2018-04-17] MEDS: SODIUM CHLORIDE 0.9% 1,000 ML IV SCH ×2 (19:57→20:19)
[2018-04-18] MEDS: ceFAZolin IN SWFI 2 GM/20 ML SYRINGE IVP SCH (00:14)
[2018-04-18] MEDS: HYDROcodone/APAP 5-325MG 1 EACH TAB PO PRN ×3 (00:14→10:52)
[2018-04-18 00:50] VITALS: RESP 18
[2018-04-18] MEDS: SODIUM CHLORIDE 0.9% 1,000 ML IV SCH (06:16)
[2018-04-18] MEDS: LACTATED RINGERS 1,000 ML IV SCH (07:36)
[2018-04-18 08:16] VITALS: BP 128/71; PULSE 73; TEMP 97.9
--- NOTE | 2018-04-18 12:14 | P.DS ---
Providers Date of admission: 04/17/18 06:02 Expected date of discharge: 04/18/18 Attending physician: Tamanna Pillai Primary care physician: [facility] Course: 47-year-old female status post Tasha-en-Y gastric bypass 08/16/2016 comes in with chronic panniculitis ongoing for more than 1 year despite treatment. Patient' s highest weight was 352 pounds. On the day of admission she weighed in at 141 pounds she has lost 211 pounds since the surgery. Her BMI has been reduced from 60 2 24 on April 17 patient underwentPannus weighing 2.1 pounds, excised. Abdominal ventral hernia of 5 x 29 cm along the midline repaired primarily using fascial imbrication. The day of discharge patient was up ambulatory on the unit urinating no difficulty pain medication was effective for pain control and an abdominal binder was in place written on the abdominal binder was do not remove patient was aware of restrictions Pain medication effective for pain control Impression discharge diagnosis Morbid obesity due to excessive calories resolving after undergoing gastric bypass tasha-en-y BMI reduced from 60 down to 24 Status post massive weight loss of 211 pounds Vitamin A deficiency Vitamin D deficiency Family history of thyroid cancer Secondary hyperparathyroidism Reactive hypoglycemia resolved April 17 panniculectomy 2.5 pounds removed, primary repair of ventral hernia without mesh Chronic panniculitis The above impression and plan of care have been discussed and directed by signing physician. Josie Hernandez nurse practitioner acting as scribe for signing physician. Plan - Discharge Summary Discharge Rx Participant: Yes New Discharge Prescriptions: New HYDROcodone/APAP 5-325MG [[facility] 5-325] 1 tab PO Q4HR PRN 3 Days #30 tab PRN Reason: Pain No Action Multivitamins, Thera [Multivitamin (formulary)] 1 tab PO DAILY Vitamin A 2,400 mg PO DAILY Thiamine [Vitamin B-1] 250 mg PO DAILY Calcium Carbonate [Calcium] 1,200 mg PO BID Vitamin D(Unknown Dose) 1 tab PO DAILY Discharge Medication List Calcium Carbonate [Calcium] 1,200 mg PO BID 04/03/18 [History] Multivitamins, Thera [Multivitamin (formulary)] 1 tab PO DAILY 04/03/18 [History ] Thiamine [Vitamin B-1] 250 mg PO DAILY 04/03/18 [History] Vitamin A 2,400 mg PO DAILY 04/03/18 [History] Vitamin D(Unknown Dose) 1 tab PO DAILY 04/17/18 [History] HYDROcodone/APAP 5-325MG [[facility] 5-325] 1 tab PO Q4HR PRN 3 Days #30 tab [Rx] Follow up Appointment(s)/Referral(s): [facility],. [NON-STAFF] - 04/21/18 10:00 am Patient Instructions/Handouts: [facility]-Lazar Drain Care (DC), Panniculectomy ( DC) Activity/Diet/Wound Care/Special Instructions: NO lifting over 4 pounds in 4 weeks. No shower. No bathtub soaks. Record RALEIGH drain output daily and strip drains to prevent clogging. Sleep with head of bed up at 30 to 45 degrees. Walk with hips flexed to prevent tear of your incision. Dressings to be removed by your doctor in the office. EAT 75 G PROTEIN DAILY FOR OPTIMAL RECOVERY. Diet as instructed Call office for any , fever , chills. discolored drainage coming through exposed dressing or binder, increased redness general incision or drain area, sudden increase or concerning change to drainage in RALEIGH drains, increased pain not controlled with your pain meds. or any concerns. Do not touch binder or dressings as instructed per Dr Pillai Last received [facility] at 10:50 Discharge Disposition: HOME SELF-CARE
== END 2018-04-18 12:21 | disposition home or self-care (01) | DRG 354 ==
LOC: 2ORMAIN 06:02 → 6PED 10:07
PROVIDERS: ADMIT Surgery Plastic and Reconstructive Surgery; ATTEND Surgery Plastic and Reconstructive Surgery
DX: K43.9 Ventral hernia without obstruction or gangrene (principal); N25.81 Secondary hyperparathyroidism of renal origin; M79.3 Panniculitis, unspecified; E66.01 Morbid (severe) obesity due to excess calories; E50.9 Vitamin A deficiency, unspecified; E55.9 Vitamin D deficiency, unspecified; E11.9 Type 2 diabetes mellitus without complications; I10 Essential (primary) hypertension; E04.1 Nontoxic single thyroid nodule; E78.5 Hyperlipidemia, unspecified; G47.33 Obstructive sleep apnea (adult) (pediatric); M35.00 Sjogren syndrome, unspecified; K21.9 Gastro-esophageal reflux disease without esophagitis; M79.7 Fibromyalgia; K58.9 Irritable bowel syndrome, unspecified; Z96.653 Presence of artificial knee joint, bilateral; L40.9 Psoriasis, unspecified; R00.0 Tachycardia, unspecified; J45.909 Unspecified asthma, uncomplicated; Z71.3 Dietary counseling and surveillance; Z68.24 Body mass index [BMI] 24.0-24.9, adult; Z98.84 Bariatric surgery status; Z82.49 Family history of ischemic heart disease and other diseases of the circulatory system; Z86.14 Personal history of Methicillin resistant Staphylococcus aureus infection; Z90.710 Acquired absence of both cervix and uterus; Z91.011 Allergy to milk products; Z99.89 Dependence on other enabling machines and devices

== ENCOUNTER → 2018-04-21 | Outpatient (CLI) | payer MEDICARE ==
--- NOTE | 2018-04-21 10:56 | P.PN ---
Subjective Progress Note Date: 04/21/18 DATE OF SERVICE: 04/21/2018 CHIEF COMPLAINT: Follow-up panniculectomy HISTORY OF PRESENT ILLNESS: Paz Escalera is a 47-year-old female status post panniculectomy 04/17/2018. She is postop day 4. Pain is controlled. No cellulitis or fevers. At her height of 5 feet 4 inches, her ideal body weight is 144 pounds. Her highest weight is 352 pounds. Today she comes in weighing 142 pounds. She has lost 210 pounds. Percent excess weight loss is 101%. Her body mass index is reduced from 60.5 down to 24.4. PHYSICAL EXAM: VITAL SIGNS: 5 feet 4 inches, 142 pounds. Body mass index of 24.4. Vital Signs Temp 98.5 F 04/21/18 11:41 Pulse 76 04/21/18 11:41 Resp BP 129/81 04/21/18 11:41 Pulse Ox ABDOMEN: RALEIGH are serosanguinous. Dressings removed. No cellulitis. Dressings are changed. MUSCULOSKELETAL: No clubbing, cyanosis, or edema. GENERAL: Well-developed female in no acute distress. HEENT: No scleral icterus. Extraocular movements grossly intact. NECK: Supple without lymphadenopathy. CHEST: Nonlabored respirations with equal bilateral excursions. CARDIOVASCULAR: Tachycardic. NEURO: No focal or lateralizing signs. Cranial nerves 2-12 grossly within normal limits. PSYCH: Appropriate affect. Alert and oriented to person, place and time. SKIN: Well perfused. Good skin turgor. ASSESSMENT: 1. Morbid obesity due to excess calories. 2. Body mass index reduced from 60.5 down to 24.4. 3. Status post Aurea-en-Y gastric bypass. 4. Status post massive weight loss of 210 pounds lifetime. 5. Status post panniculectomy for panniculitis PLAN: 1. Dressing changes for Tuesday. 2. Continue RALEIGH drains.
[2018-04-21 11:45] VITALS: BP 129/81; PULSE 76; TEMP 98.5; BMI 24.3
== END | disposition home or self-care (01) ==
LOC: BARWHC3 09:33
PROVIDERS: ATTEND Surgery Plastic and Reconstructive Surgery
DX: Z48.815 Encounter for surgical aftercare following surgery on the digestive system (principal); E66.01 Morbid (severe) obesity due to excess calories; Z68.24 Body mass index [BMI] 24.0-24.9, adult; Z98.84 Bariatric surgery status; Z97.8 Presence of other specified devices
CPT/HCPCS: 99212

== ENCOUNTER → 2018-04-24 | Outpatient (CLI) | payer MEDICARE ==
[2018-04-24 14:30] VITALS: BP 131/79; PULSE 69; TEMP 98.1; BMI 24.3
--- NOTE | 2018-04-24 17:33 | P.PN ---
Subjective Progress Note Date: 04/24/18 DATE OF SERVICE: 04/24/2018 CHIEF COMPLAINT: Follow-up panniculectomy HISTORY OF PRESENT ILLNESS: Paz Escalera is a 47-year-old female status post panniculectomy 04/17/2018. She is postop day 7. Pain is controlled. No cellulitis or fevers. RALEIGH drain sanguinous and thin serous. Outputs under 20 mL. At her height of 5 feet 4 inches, her ideal body weight is 144 pounds. Her highest weight is 352 pounds. Today she comes in weighing 142 pounds and unchanged in 3 days. She has lost 210 pounds. Percent excess weight loss is 101%. Her body mass index is reduced from 60.5 down to 24.4. PHYSICAL EXAM: VITAL SIGNS: 5 feet 4 inches, 142 pounds. Body mass index of 24.4. Vital Signs Temp 98.1 F 04/24/18 14:25 Pulse 69 04/24/18 14:25 Resp BP 131/79 04/24/18 14:25 Pulse Ox ABDOMEN: JJP drain sanguinous thin serous. Outputs under 20 mL. Dressings changed. No signs of infection. MUSCULOSKELETAL: No clubbing, cyanosis, or edema. GENERAL: Well-developed female in no acute distress. HEENT: No scleral icterus. Extraocular movements grossly intact. NECK: Supple without lymphadenopathy. CHEST: Nonlabored respirations with equal bilateral excursions. CARDIOVASCULAR: Tachycardic. NEURO: No focal or lateralizing signs. Cranial nerves 2-12 grossly within normal limits. PSYCH: Appropriate affect. Alert and oriented to person, place and time. SKIN: Well perfused. Good skin turgor. ASSESSMENT: 1. Morbid obesity due to excess calories. 2. Body mass index reduced from 60.5 down to 24.4. 3. Status post Aurea-en-Y gastric bypass. 4. Status post massive weight loss of 210 pounds lifetime. 5. Status post panniculectomy for panniculitis PLAN: 1. Will remove all dressings and JPs in 5 days. Objective - Vital Signs Vital signs: Vital Signs Temp 98.1 F 04/24/18 14:25 Pulse 69 04/24/18 14:25 Resp BP 131/79 04/24/18 14:25 Pulse Ox Intake & Output 04/23/18 04/24/18 04/24/18 18:59 06:59 18:59 Weight 64.41 kg
== END | disposition home or self-care (01) ==
LOC: BARWHC3 09:20
PROVIDERS: ATTEND Surgery Plastic and Reconstructive Surgery
DX: Z48.817 Encounter for surgical aftercare following surgery on the skin and subcutaneous tissue (principal); E66.01 Morbid (severe) obesity due to excess calories; R63.4 Abnormal weight loss; Z68.24 Body mass index [BMI] 24.0-24.9, adult; Z98.84 Bariatric surgery status; Z98.890 Other specified postprocedural states
CPT/HCPCS: 99212

== ENCOUNTER → 2018-04-28 | Outpatient (CLI) | payer MEDICARE ==
[2018-04-28 11:11] VITALS: BP 162/83; PULSE 72; TEMP 97.8; BMI 24.2
--- NOTE | 2018-04-28 17:45 | P.PN ---
Subjective Progress Note Date: 04/28/18 DATE OF SERVICE: 04/28/2018 CHIEF COMPLAINT: Follow-up panniculectomy HISTORY OF PRESENT ILLNESS: Paz Escalera is a 47-year-old female status post panniculectomy 04/17/2018. She is postop day 11. RALEIGH outputs less than 30 mL daily. At her height of 5 feet 4 inches, her ideal body weight is 144 pounds. Her highest weight is 352 pounds. Today she comes in weighing 141 pounds. She has lost 1 pound in less than 1 week. She has lost 211 pounds. Percent excess weight loss is 101%. Her body mass index is reduced from 60.5 down to 24.3. PHYSICAL EXAM: VITAL SIGNS: 5 feet 4 inches, 141 pounds. Body mass index of 24.3. Vital Signs Temp 97.8 F 04/28/18 11:07 Pulse 72 04/28/18 11:07 Resp BP 162/83 04/28/18 11:07 Pulse Ox ABDOMEN: All dressings discontinued. No signs of infection. JPs discontinued. MUSCULOSKELETAL: No clubbing, cyanosis, or edema. GENERAL: Well-developed female in no acute distress. HEENT: No scleral icterus. Extraocular movements grossly intact. NECK: Supple without lymphadenopathy. CHEST: Nonlabored respirations with equal bilateral excursions. CARDIOVASCULAR: Tachycardic. NEURO: No focal or lateralizing signs. Cranial nerves 2-12 grossly within normal limits. PSYCH: Appropriate affect. Alert and oriented to person, place and time. SKIN: Well perfused. Good skin turgor. ASSESSMENT: 1. Morbid obesity due to excess calories. 2. Body mass index reduced from 60.5 down to 24.3. 3. Status post Aurea-en-Y gastric bypass. 4. Status post massive weight loss of 211 pounds lifetime. 5. Status post panniculectomy for panniculitis PLAN: 1. Patient told to wear abdominal binder for 2 weeks with the exception of showering. 2. Follow-up in 2 weeks. Objective - Vital Signs Vital signs: Vital Signs Temp 97.8 F 04/28/18 11:07 Pulse 72 04/28/18 11:07 Resp BP 162/83 04/28/18 11:07 Pulse Ox Intake & Output 07/04/28/18 04/28/18 18:59 06:59 18:59 Weight 64.093 kg
== END | disposition home or self-care (01) ==
LOC: BARWHC3 09:21
PROVIDERS: ATTEND Surgery Plastic and Reconstructive Surgery
DX: Z48.817 Encounter for surgical aftercare following surgery on the skin and subcutaneous tissue (principal); E66.01 Morbid (severe) obesity due to excess calories; R63.4 Abnormal weight loss; Z98.84 Bariatric surgery status; Z98.890 Other specified postprocedural states; Z68.24 Body mass index [BMI] 24.0-24.9, adult
CPT/HCPCS: 99212

== ENCOUNTER → 2018-05-10 | Outpatient (CLI) | payer MEDICARE ==
--- NOTE | 2018-05-10 15:03 | P.PN ---
Subjective Progress Note Date: 05/10/18 DATE OF SERVICE: 05/10/2018 CHIEF COMPLAINT: Follow-up panniculectomy HISTORY OF PRESENT ILLNESS: Paz Escalera is a 47-year-old female status post panniculectomy 04/17/2018. She is 3 weeks out. She is doing well. She reports occassional clear drainage along the left hip. No issues otherwise. At her height of 5 feet 4 inches, her ideal body weight is 144 pounds. Her highest weight is 352 pounds. Today she comes in weighing 140 pounds. She has lost 1 pound in 2 weeks. She has lost 212 pounds. Percent excess weight loss is 102%. Her body mass index is reduced from 60.5 down to 24.0. PHYSICAL EXAM: VITAL SIGNS: 5 feet 4 inches, 140 pounds. Body mass index of 24.0. Vital Signs Temp 98.2 F 05/10/18 14:59 Pulse 76 05/10/18 14:59 Resp 15 05/10/18 14:59 BP 153/85 05/10/18 14:59 Pulse Ox ABDOMEN: Incisions are granulating. No infection. MUSCULOSKELETAL: No clubbing, cyanosis, or edema. GENERAL: Well-developed female in no acute distress. HEENT: No scleral icterus. Extraocular movements grossly intact. NECK: Supple without lymphadenopathy. CHEST: Nonlabored respirations with equal bilateral excursions. CARDIOVASCULAR: Tachycardic. NEURO: No focal or lateralizing signs. Cranial nerves 2-12 grossly within normal limits. PSYCH: Appropriate affect. Alert and oriented to person, place and time. SKIN: Well perfused. Good skin turgor. ASSESSMENT: 1. Morbid obesity due to excess calories. 2. Body mass index reduced from 60.5 down to 24.3. 3. Status post Aurea-en-Y gastric bypass. 4. Status post massive weight loss of 211 pounds lifetime. 5. Status post panniculectomy for panniculitis PLAN: 1. May follow up as needed. 2. She will continue to wear her binder. 3. Weight lifting restrictions for 8 weeks from her procedure.
[2018-05-10 15:09] VITALS: BP 153/85; PULSE 76; RESP 15; TEMP 98.2; BMI 24.0
== END | disposition home or self-care (01) ==
LOC: BARWHC3 13:36
PROVIDERS: ATTEND Surgery Plastic and Reconstructive Surgery
DX: Z48.817 Encounter for surgical aftercare following surgery on the skin and subcutaneous tissue (principal); E66.01 Morbid (severe) obesity due to excess calories; R63.4 Abnormal weight loss; Z68.24 Body mass index [BMI] 24.0-24.9, adult; Z98.84 Bariatric surgery status; Z98.890 Other specified postprocedural states
CPT/HCPCS: 99212

== ENCOUNTER → 2018-05-31 | Outpatient (CLI) | payer MEDICARE ==
[2018-05-31 13:57] VITALS: BP 150/75; PULSE 72; RESP 16; TEMP 98.6; BMI 24.2
--- NOTE | 2018-05-31 14:03 | P.PN ---
Subjective Progress Note Date: 05/31/18 HPI: She reports mild swelling of the abdomen. No fevers or chills. ABDOMEN: Stitch site from spitting suture with serous drainage PLAN: 1. Wound ok as she is [address] of the abdomen/pelvis for seroma check. Objective - Vital Signs Vital signs: Vital Signs Temp 98.6 F 05/31/18 13:46 Pulse 72 05/31/18 13:46 Resp 16 05/31/18 13:46 BP 150/75 05/31/18 13:46 Pulse Ox Intake & Output 05/30/18 05/31/18 05/31/18 18:59 06:59 18:59 Weight 63.957 kg
--- NOTE | 2018-05-31 15:58 | CT ---
EXAMINATION TYPE: CT abdomen pelvis wo con DATE OF EXAM: 05/31/2018 COMPARISON: None HISTORY: Abdominal pain after panniculectomy x6 weeks ago. CT DLP: 299.4 mGycm Examination of the solid and hollow viscera is limited given the lack of contrast. FINDINGS: LUNG BASES: No evidence for nodule. No evidence for infiltrate. LIVER/GB: Hepatic Jerod's lobe noted. Cholecystectomy clips identified. The gallbladder is unremarka ble. No space-occupying hepatic lesion. PANCREAS: No pancreatic mass identified. No inflammatory process seen. SPLEEN: Mild splenomegaly at 13 cm craniocaudal dimension. No intrasplenic lesions seen. ADRENALS: No adrenal nodules identified. No evidence for thickening. KIDNEYS: No evidence for renal mass. No nephrolithiasis. No hydronephrosis. BOWEL: Evidence of prior bariatric surgery. Small sliding-type hiatal hernia. Appendix has a normal a ppearance. No evidence of bowel obstruction. No inflammatory process. Lymph nodes: No evidence for adenopathy greater than 1 cm. Abdominal aorta: Atheromatous changes seen. No evidence for aneurysm. Genital organs: No significant abnormality. Other: Anterior abdominal wall stranding likely related to recent panniculectomy. No evidence for abs cess or abnormal collection. IMPRESSION: 1. No evidence for acute intra-abdominal process. 2. Mild splenomegaly. 3. Anterior abdominal wall stranding likely related to recent panniculectomy. No evidence for abscess or abnormal collection.
== END | disposition home or self-care (01) ==
LOC: BARWHC3 12:56
PROVIDERS: ATTEND Surgery Plastic and Reconstructive Surgery
DX: R16.1 Splenomegaly, not elsewhere classified (principal); R19.00 Intra-abdominal and pelvic swelling, mass and lump, unspecified site
CPT/HCPCS: 74176; G0463; 99211

== ENCOUNTER → 2018-06-28 | Outpatient (CLI) | payer MEDICARE ==
--- NOTE | 2018-06-28 13:51 | P.PN ---
Subjective Progress Note Date: 06/28/18 HPI: She is feeling well. She complains right lower quadrant swelling. ABDOMEN: She has swelling of the right lower quadrant. No edema. PLAN: 1. She is near her anniversary 2. Her diet and weight is stable 3. Recommend for evaluation for hernia performed with recent CT scan reviewed.
[2018-06-28 13:58] VITALS: BP 170/88; PULSE 76; TEMP 98.4; BMI 24.5
== END | disposition home or self-care (01) ==
LOC: BARWHC3 12:37
PROVIDERS: ATTEND Surgery Plastic and Reconstructive Surgery
DX: R19.03 Right lower quadrant abdominal swelling, mass and lump (principal)
CPT/HCPCS: 99211

== ENCOUNTER 2018-07-30 18:46 | Inpatient (IN) | payer MEDICARE ==
--- NOTE | 2018-07-30 19:18 | ED ---
Abdominal Pain HPI - General Source: patient, RN notes reviewed, old records reviewed Mode of arrival: ambulatory Limitations: no limitations - History of Present Illness MD Complaint: abdominal pain -: hour(s) Location: diffuse, periumbilical, suprapubic Radiation: none Migration to: no migration Severity: moderate Severity scale (1-10): 4 Quality: cramping, sharp Consistency: constant Improves With: nothing Worsens With: nothing <Prasanna Torres - Last Filed: 07/30/18 20:55> <Jose Reyes - Last Filed: 07/31/18 00:06> - General Chief Complaint: Abdominal Pain Stated Complaint: abdominal pain, nausea Time Seen by Provider: 07/30/18 19:13 - History of Present Illness Initial Comments: This is a 48-year-old female the ER the bowel pain epigastric suprapubic bowel pain severe. Patient has history of 2 years ago bariatric surgery, recent history of skin infection. Patient has good significant weight loss. Denies fever no nausea no vomiting occasional on and off diarrhea. No blood in her stool. Patient denies any change in medications or travel history (Prasanna Torres) - Related Data Home Medications Medication Instructions Recorded Confirmed Calcium Carbonate [Calcium] 1,200 mg PO BID 04/03/18 07/30/18 Multivitamins, Thera [Multivitamin 1 tab PO DAILY 04/03/18 07/30/18 (formulary)] Thiamine [Vitamin B-1] 100 mg PO DAILY 04/03/18 07/30/18 Allergies Allergy/AdvReac Type Severity Reaction Status Date / Time codeine Allergy Abdominal Verified 07/30/18 19:23 Pain Milk Containing Products AdvReac Diarrhea Verified 07/30/18 19:23 [Dairy] morphine AdvReac Chest Pain Verified 07/30/18 21:38 environment Allergy Mild Unknown Uncoded 06/28/18 14:02 Review of Systems ROS Other: All systems not noted in ROS Statement are negative. <Prasanna Torres - Last Filed: 07/30/18 20:55> ROS Other: All systems not noted in ROS Statement are negative. <Jose Reyes - Last Filed: 07/31/18 00:06> ROS Statement: Those systems with pertinent positive or pertinent negative responses have been documented in the HPI. Past Medical History Past Medical History: Asthma, Diabetes Mellitus, Fibromyalgia, GERD/Reflux, Hyperlipidemia, Hypertension, Osteoarthritis (OA), Skin Disorder, Sleep Apnea/ CPAP/BIPAP Additional Past Medical History / Comment(s): Sleep apnea, tachycardia. USES CPAP. Shogen's syndrome. IBS, low potassium, peripheral venous insufficiency, lupus. History of Any Multi-Drug Resistant Organisms: None Reported, MRSA Date of last positivie culture/infection: 2013 MDRO Source:: knee joint 2013 finished rx in December 2015 Past Surgical History: Bariatric Surgery, Cholecystectomy, Hysterectomy, Joint Replacement, Orthopedic Surgery, Tonsillectomy Additional Past Surgical History / Comment(s): 08/16/16 Laparoscopic Aurea-En Y gastric bypass with EGD. Other surgical hx: Laparoscopy x3. AT 1 WEEKS OLD, REPAIR OF PYLORIC STENOSIS. Left knee arthroscopic x4 with reconstruction x2. Total knee replacement 2008. Right total knee replacement 2009, removal of right knee replacement (MRSA) and spacer inserted. panniculectomy 04-17-18 Past Anesthesia/Blood Transfusion Reactions: Postoperative Nausea & Vomiting ( PONV) Past Psychological History: Anxiety Smoking Status: Never smoker Past Alcohol Use History: None Reported Past Drug Use History: None Reported - Past Family History Mother Family Medical History: Congestive Heart Failure (CHF), Diabetes Mellitus, Hyperlipidemia, Hypertension, Thyroid Disorder <Prasanna Torres - Last Filed: 07/30/18 20:55> General Exam Limitations: no limitations General appearance: alert, in no apparent distress Head exam: Present: atraumatic, normocephalic, normal inspection Eye exam: Present: normal appearance, PERRL, EOMI. Absent: scleral icterus, conjunctival injection, periorbital swelling ENT exam: Present: normal exam, mucous membranes moist Neck exam: Present: normal inspection. Absent: tenderness, meningismus, lymphadenopathy Respiratory exam: Present: normal lung sounds bilaterally. Absent: respiratory distress, wheezes, rales, rhonchi, stridor Cardiovascular Exam: Present: regular rate, normal rhythm, normal heart sounds. Absent: systolic murmur, diastolic murmur, rubs, gallop, clicks GI/Abdominal exam: Present: soft, tenderness, normal bowel sounds. Absent: distended, guarding, rebound, rigid Extremities exam: Present: normal inspection, full ROM, normal capillary refill. Absent: tenderness, pedal edema, joint swelling, calf tenderness Back exam: Present: normal inspection Neurological exam: Present: alert, oriented X3, CN II-XII intact Psychiatric exam: Present: normal affect, normal mood Skin exam: Present: warm, dry, intact, normal color. Absent: rash <Prasanna Torres - Last Filed: 07/30/18 20:55> Course <Prasanna Torres - Last Filed: 07/30/18 20:55> <Jose Reyes - Last Filed: 07/31/18 00:06> Vital Signs 07/30/18 07/30/18 07/30/18 19:05 20:45 22:11 Temperature 98.3 F 98.2 F Pulse Rate 91 71 61 Respiratory 18 22 16 Rate Blood Pressure 142/92 150/83 142/77 O2 Sat by Pulse 100 100 99 Oximetry - Reevaluation(s) Reevaluation #1: 07/30/18 20:56 Medical records reviewed (Prasanna Torres) Medical Decision Making - Lab Data Result diagrams: 07/30/18 19:50 07/30/18 19:50 <Prasanna Torres - Last Filed: 07/30/18 20:55> - Lab Data Result diagrams: 07/30/18 19:50 07/30/18 19:50 <Jose Reyes - Last Filed: 07/31/18 00:06> - Medical Decision Making Receive this patient has sign out from Dr. Frost, pending the CT scan. Case discussed with Dr. Urbina who is covering for Dr. Hutchison and will admit patient for further evaluation and treatment. (Jose Reyes) - Lab Data Lab Results 07/30/18 07/30/18 07/30/18 Range/Units 19:50 19:50 19:50 WBC 4.4 (3.8-10.6) k/uL RBC 4.30 (3.80-5.40) m/uL Hgb 12.8 (11.4-16.0) gm/dL Hct 38.6 (34.0-46.0) % MCV 89.7 (80.0-100.0) fL MCH 29.8 (25.0-35.0) pg MCHC 33.3 (31.0-37.0) g/dL RDW 13.3 (11.5-15.5) % Plt Count 184 (150-450) k/uL Neutrophils % 49 % Lymphocytes % 37 % Monocytes % 5 % Eosinophils % 6 % Basophils % 1 % Neutrophils # 2.2 (1.3-7.7) k/uL Lymphocytes # 1.7 (1.0-4.8) k/uL Monocytes # 0.2 (0-1.0) k/uL Eosinophils # 0.3 (0-0.7) k/uL Basophils # 0.0 (0-0.2) k/uL Sodium 141 (137-145) mmol/L Potassium 3.7 (3.5-5.1) mmol/L Chloride 106 (98-107) mmol/L Carbon Dioxide 28 (22-30) mmol/L Anion Gap 7 mmol/L BUN 15 (7-17) mg/dL Creatinine 0.56 (0.52-1.04) mg/dL Est GFR (CKD-EPI)AfAm >90 (>60 ml/min/1.73 sqM) Est GFR (CKD-EPI)NonAf >90 (>60 ml/min/1.73 sqM) Glucose 97 (74-99) mg/dL Plasma Lactic Acid Juan Carlos (0.7-2.0) mmol/L Calcium 9.1 (8.4-10.2) mg/dL Total Bilirubin 0.3 (0.2-1.3) mg/dL AST 20 (14-36) U/L ALT 24 (9-52) U/L Alkaline Phosphatase 81 (38-126) U/L Total Creatine Kinase 38 (30-135) U/L CK-MB (CK-2) 1.0 (0.0-2.4) ng/mL CK-MB (CK-2) Rel Index 2.6 Troponin I <0.012 (0.000-0.034) ng/mL Total Protein 6.6 (6.3-8.2) g/dL Albumin 3.7 (3.5-5.0) g/dL Amylase 64 (30-110) U/L Lipase 83 (23-300) U/L Urine Color Urine Appearance (Clear) Urine pH (5.0-8.0) Ur Specific [place] (1.001-1.035) Urine Protein (Negative) Urine Glucose (UA) (Negative) Urine Ketones (Negative) Urine Blood (Negative) Urine Nitrite (Negative) Urine Bilirubin (Negative) Urine Urobilinogen (<2.0) mg/dL Ur Leukocyte Esterase (Negative) Urine RBC (0-5) /hpf Urine WBC (0-5) /hpf Urine Mucus (None) /hpf 07/30/18 07/30/18 Range/Units 19:50 21:50 WBC (3.8-10.6) k/uL RBC (3.80-5.40) m/uL Hgb (11.4-16.0) gm/dL Hct (34.0-46.0) % MCV (80.0-100.0) fL MCH (25.0-35.0) pg MCHC (31.0-37.0) g/dL RDW (11.5-15.5) % Plt Count (150-450) k/uL Neutrophils % % Lymphocytes % % Monocytes % % Eosinophils % % Basophils % % Neutrophils # (1.3-7.7) k/uL Lymphocytes # (1.0-4.8) k/uL Monocytes # (0-1.0) k/uL Eosinophils # (0-0.7) k/uL Basophils # (0-0.2) k/uL Sodium (137-145) mmol/L Potassium (3.5-5.1) mmol/L Chloride (98-107) mmol/L Carbon Dioxide (22-30) mmol/L Anion Gap mmol/L BUN (7-17) mg/dL Creatinine (0.52-1.04) mg/dL Est GFR (CKD-EPI)AfAm (>60 ml/min/1.73 sqM) Est GFR (CKD-EPI)NonAf (>60 ml/min/1.73 sqM) Glucose (74-99) mg/dL Plasma Lactic Acid Juan Carlos 0.7 (0.7-2.0) mmol/L Calcium (8.4-10.2) mg/dL Total Bilirubin (0.2-1.3) mg/dL AST (14-36) U/L ALT (9-52) U/L Alkaline Phosphatase (38-126) U/L Total Creatine Kinase (30-135) U/L CK-MB (CK-2) (0.0-2.4) ng/mL CK-MB (CK-2) Rel Index Troponin I (0.000-0.034) ng/mL Total Protein (6.3-8.2) g/dL Albumin (3.5-5.0) g/dL Amylase (30-110) U/L Lipase (23-300) U/L Urine Color Yellow Urine Appearance Clear (Clear) Urine pH 6.5 (5.0-8.0) Ur Specific [place] 1.029 (1.001-1.035) Urine Protein Negative (Negative) Urine Glucose (UA) Negative (Negative) Urine Ketones Negative (Negative) Urine Blood Negative (Negative) Urine Nitrite Negative (Negative) Urine Bilirubin Negative (Negative) Urine Urobilinogen <2.0 (<2.0) mg/dL Ur Leukocyte Esterase Small H (Negative) Urine RBC <1 (0-5) /hpf Urine WBC 4 (0-5) /hpf Urine Mucus Rare H (None) /hpf Disposition <Prasanna Torres - Last Filed: 07/30/18 20:55> Is patient prescribed a controlled substance at d/c from ED?: No <Jose Reyes - Last Filed: 07/31/18 00:06> Clinical Impression: Abdominal pain Disposition: ADMITTED IP TO THIS HOSP Condition: Fair Instructions: Abdominal Pain (ED) Referrals: Paul Marrero MD [Primary Care Provider] - 1-2 days
[2018-07-30] MEDS ORDERED: MORPHINE SULFATE 4 MG/ML SYRINGE IV STA (19:49)
[2018-07-30] MEDS ORDERED: ONDANSETRON 4 MG/2 ML VIAL IVP STA (19:49)
[2018-07-30] MEDS ORDERED: PANTOPRAZOLE 40 MG/10 ML VIAL IVP STA (19:49)
[2018-07-30] MEDS ORDERED: IOPAMIDOL-300 CONTRAST 30 ML VIAL (ORAL USE) PO PRN (19:49)
[2018-07-30] MEDS ORDERED: SODIUM CHLORIDE 0.9% 1,000 ML IV STA (19:49)
[2018-07-30] MEDS ORDERED: SODIUM CHLORIDE 0.9% 500 ML 500 ML IV STA (19:49)
[2018-07-30 20:24] LABS: Basophils % (A) 1 %; Eosinophils # (A) 0.3 k/uL (0-0.7); Eosinophils % (A) 6 %; HCT 38.6 % (34.0-46.0); HGB 12.8 gm/dL (11.4-16.0); Lymphocytes # (A) 1.7 k/uL (1.0-4.8); Lymphocytes % (A) 37 %; MCH 29.8 pg (25.0-35.0); MCHC 33.3 g/dL (31.0-37.0); MCV 89.7 fL (80.0-100.0); Mean Platelet Volume 8.2; Monocytes # (A) 0.2 k/uL (0-1.0); Monocytes % (A) 5 %; Neutrophils # (A) 2.2 k/uL (1.3-7.7); Neutrophils % (A) 49 %; Platelet Count 184 k/uL (150-450); RDW 13.3 % (11.5-15.5); WBC 4.4 k/uL (3.8-10.6)
[2018-07-30 20:44] LABS: Creatine Kinase 38 U/L (30-135)
[2018-07-30 20:50] LABS: ALT 24 U/L (9-52); AST 20 U/L (14-36); Albumin 3.7 g/dL (3.5-5.0); Alkaline Phosphatase 81 U/L (38-126); Amylase 64 U/L (30-110); Anion Gap 7 mmol/L; Blood Urea Nitrogen 15 mg/dL (7-17); Calcium 9.1 mg/dL (8.4-10.2); Carbon Dioxide 28 mmol/L (22-30); Chloride 106 mmol/L (98-107); Glucose 97 mg/dL (74-99); Lipase 83 U/L (23-300); Potassium 3.7 mmol/L (3.5-5.1); Sodium 141 mmol/L (137-145); Total Bilirubin 0.3 mg/dL (0.2-1.3); Total Protein 6.6 g/dL (6.3-8.2)
[2018-07-30 20:56] LABS: Troponin I <0.012 ng/mL (0.000-0.034)
--- NOTE | 2018-07-30 21:16 | XR ---
EXAMINATION TYPE: XR KUB DATE OF EXAM: 07/30/2018 COMPARISON: NONE HISTORY: Abdominal pain TECHNIQUE: 2 views upright FINDINGS: There is no sign of intestinal obstruction or pneumoperitoneum. Fecal pattern is normal. Th ere are clips from cholecystectomy. Lung bases are clear. There is slight lumbar dextroscoliosis. The re are no calcifications over the kidneys. IMPRESSION: Nonacute abdomen.
--- NOTE | 2018-07-30 22:16 | CT ---
EXAMINATION TYPE: CT abdomen pelvis w con DATE OF EXAM: 07/30/2018 COMPARISON: 05/31/2018 HISTORY: Mid abdominal pain, constipation and diarrhea. CT DLP: 652.9 mGycm Automated exposure control for dose reduction was used. TECHNIQUE: Helical acquisition of images was performed from the lung bases through the pelvis. CONTRAST: Performed with Oral Contrast and with IV Contrast, patient injected with 100ml mL of Isovue 300. FINDINGS: Lung bases are clear. There is no pleural effusion. Heart size is normal. There is no pericardial eff usion. There is surgical clips from bariatric surgery. There are clips from cholecystectomy. Liver sh ows no focal defect. Spleen appears normal. There is no pancreatic mass. There is no adrenal mass. Kidneys show satisfactory contrast opacification. There is no hydronephrosi s. Ureters are not dilated. There is no retroperitoneal adenopathy. There is increased density in the mesenteric fat in the mid abdomen. Bladder distends smoothly. There are surgical clips in the pelvis . There is hysterectomy. There is no free fluid in the pelvis. I see no definite intestinal wall thic kening. Proximal jejunum measures up to 3 cm. The oral contrast only reaches the proximal jejunum. Ap pendix is not definitely seen. There is no sign of appendicitis. There are spondylotic changes throug hout the lumbar spine. I see no compression fracture. Bony pelvis appears intact. There is no inguina l hernia. There is no evidence of free air. IMPRESSION: BARIATRIC SURGERY. THERE IS SMALL BOWEL MESENTERIC EDEMA OF UNCERTAIN SIGNIFICANCE. THE ORAL CONTRAST DOES NOT PROGRESS VERY FAR that RAISES THE POSSIBILITY OF AN INTESTINAL MOTILITY DISORDER. JEJUNUM M EASURES UP TO 3 CM.
[2018-07-30 22:23] LABS: Appearance,Urine Clear (Clear); Bilirubin,Urine Negative (Negative); Blood,Urine Negative (Negative); Color,Urine Yellow; Glucose,Urine (UA) Negative (Negative); Ketones,Urine Negative (Negative); Leukocyte Esterase,Urine Small (Negative); Mucus,Urine Rare /hpf; Nitrite,Urine Negative (Negative); PH, Urine 6.5 (5.0-8.0); Protein,Urine Negative (Negative); RBC,Urine <1 /hpf (0-5); Specific Gravity,Urine 1.029 (1.001-1.035); Urobilinogen,Urine <2.0 mg/dL (<2.0); WBC,Urine 4 /hpf (0-5)
[2018-07-31] MEDS ORDERED: NALOXONE 0.4 MG/ML 1 ML VIAL IV PRN
[2018-07-31] MEDS ORDERED: MORPHINE SULFATE 4 MG/ML SYRINGE IV PRN (00:28)
[2018-07-31] MEDS ORDERED: fentaNYL (PF) 50 MCG/ML 2 ML AMP IV PRN (00:41)
[2018-07-31] MEDS: HYDROmorphone 1 MG/ML 1 ML SYRINGE IVP PRN ×3 (02:21→20:03)
[2018-07-31] MEDS: SODIUM CHLORIDE 0.9% 1,000 ML IV SCH ×3 (02:23→18:36)
--- NOTE | 2018-07-31 12:24 | P.GSHP ---
History of Present Illness H&P Date: 07/31/18 Chief Complaint: Abdominal pain 48-year-old female known to Dr. Hutchison from previous Aurea-en-Y gastric bypass 2 years ago. Patient had an abdominoplasty earlier this year. Last week she said she was having episodes of diarrhea. Starting on Tuesday she began experiencing mid abdominal discomfort that persisted through the weekend and she came to the hospital for evaluation. Denies fevers. Some nausea. No vomiting. Pain increased with eating. White blood cell count normal yesterday. CAT scan shows possible partial small bowel obstruction with some edema in the small bowel mesentery. Pain somewhat improved today. She is afebrile. No tachycardia. Past Medical History Past Medical History: Fibromyalgia, Osteoarthritis (OA), Skin Disorder Additional Past Medical History / Comment(s): Shogen's syndrome, hypoglycemia History of Any Multi-Drug Resistant Organisms: MRSA Date of last positivie culture/infection: 2013 MDRO Source:: knee joint 2013 finished rx in December 2015 Past Surgical History: Bariatric Surgery, Cholecystectomy, Hysterectomy, Joint Replacement, Orthopedic Surgery, Tonsillectomy Additional Past Surgical History / Comment(s): 08/16/16 Laparoscopic Aurea-En Y gastric bypass with EGD. Other surgical hx: Laparoscopy x3. AT 1 WEEKS OLD, REPAIR OF PYLORIC STENOSIS. Left knee arthroscopic x4 with reconstruction x2. Total knee replacement 2008. Right total knee replacement 2009, removal of right knee replacement (MRSA) and spacer inserted. panniculectomy 04-17-18 Past Anesthesia/Blood Transfusion Reactions: Postoperative Nausea & Vomiting ( PONV) Past Psychological History: Anxiety Additional Psychological History / Comment(s): Prozac daily to decrease anxiety. Pt resides with her spouse.She drives. Smoking Status: Never smoker Past Alcohol Use History: None Reported Past Drug Use History: None Reported - Past Family History Mother Family Medical History: Congestive Heart Failure (CHF), Diabetes Mellitus, Hyperlipidemia, Hypertension, Thyroid Disorder Medications and Allergies Home Medications Medication Instructions Recorded Confirmed Type Calcium Carbonate [Calcium] 1,200 mg PO BID 04/03/18 07/30/18 History Multivitamins, Thera [Multivitamin 1 tab PO DAILY 04/03/18 07/30/18 History (formulary)] Thiamine [Vitamin B-1] 100 mg PO DAILY 04/03/18 07/30/18 History Vitamin A 8,000 units PO DAILY 07/31/18 07/31/18 History Allergies Allergy/AdvReac Type Severity Reaction Status Date / Time codeine Allergy Intermediate Chest Pain Verified 07/31/18 00:59 morphine AdvReac Intermediate Chest Pain Verified 07/31/18 00:59 Milk Containing Products AdvReac Diarrhea Verified 07/30/18 19:23 [Dairy] environment Allergy Mild Unknown Uncoded 06/28/18 14:02 Surgical - Exam Vital Signs Temp Pulse Resp BP Pulse Ox 98.3 F 91 18 142/92 100 07/30/18 19:05 07/30/18 19:05 07/30/18 19:05 07/30/18 19:05 07/30/18 19:05 Physical exam: General: Well-developed, well-nourished HEENT: Normocephalic, sclerae nonicteric Abdomen: Mild mid abdominal tenderness, nondistended Extremities: No edema Neuro: Alert and oriented Results - Labs 07/30/18 19:50 07/30/18 19:50 Abnormal Lab Results - Last 24 Hours (Table) 07/30/18 Range/Units 21:50 Ur Leukocyte Esterase Small H (Negative) Urine Mucus Rare H (None) /hpf Microbiology - Last 24 Hours (Table) 07/30/18 21:50 Urine Culture - Preliminary Urine,Voided Diabetes panel 07/30/18 Range/Units 19:50 Sodium 141 (137-145) mmol/L Potassium 3.7 (3.5-5.1) mmol/L Chloride 106 (98-107) mmol/L Carbon Dioxide 28 (22-30) mmol/L BUN 15 (7-17) mg/dL Creatinine 0.56 (0.52-1.04) mg/dL Glucose 97 (74-99) mg/dL Calcium 9.1 (8.4-10.2) mg/dL AST 20 (14-36) U/L ALT 24 (9-52) U/L Alkaline Phosphatase 81 (38-126) U/L Total Protein 6.6 (6.3-8.2) g/dL Albumin 3.7 (3.5-5.0) g/dL Calcium panel 07/30/18 Range/Units 19:50 Calcium 9.1 (8.4-10.2) mg/dL Albumin 3.7 (3.5-5.0) g/dL Pituitary panel 07/30/18 Range/Units 19:50 Sodium 141 (137-145) mmol/L Potassium 3.7 (3.5-5.1) mmol/L Chloride 106 (98-107) mmol/L Carbon Dioxide 28 (22-30) mmol/L BUN 15 (7-17) mg/dL Creatinine 0.56 (0.52-1.04) mg/dL Glucose 97 (74-99) mg/dL Calcium 9.1 (8.4-10.2) mg/dL Adrenal panel 07/30/18 Range/Units 19:50 Sodium 141 (137-145) mmol/L Potassium 3.7 (3.5-5.1) mmol/L Chloride 106 (98-107) mmol/L Carbon Dioxide 28 (22-30) mmol/L BUN 15 (7-17) mg/dL Creatinine 0.56 (0.52-1.04) mg/dL Glucose 97 (74-99) mg/dL Calcium 9.1 (8.4-10.2) mg/dL Total Bilirubin 0.3 (0.2-1.3) mg/dL AST 20 (14-36) U/L ALT 24 (9-52) U/L Alkaline Phosphatase 81 (38-126) U/L Total Protein 6.6 (6.3-8.2) g/dL Albumin 3.7 (3.5-5.0) g/dL Assessment and Plan (1) Partial small bowel obstruction Narrative/Plan: Will check repeat labs at this time. Add Toradol for pain control. Order small bowel series for tomorrow. Current Visit: Yes Status: Acute Code(s): K56.600 - PARTIAL INTESTINAL OBSTRUCTION, UNSPECIFIED TO CAUSE SNOMED Code(s): 350153368
[2018-07-31] MEDS: KETOROLAC 30 MG/ML 1 ML VIAL IVP SCH ×3 (12:59→23:12)
[2018-07-31 13:56] LABS: Basophils % (A) 1 %; Eosinophils # (A) 0.2 k/uL (0-0.7); Eosinophils % (A) 7 %; HCT 35.5 % (34.0-46.0); HGB 11.7 gm/dL (11.4-16.0); Lymphocytes # (A) 1.2 k/uL (1.0-4.8); Lymphocytes % (A) 38 %; MCH 29.1 pg (25.0-35.0); MCV 88.3 fL (80.0-100.0); Mean Platelet Volume 8.3; Monocytes # (A) 0.1 k/uL (0-1.0); Monocytes % (A) 4 %; Neutrophils # (A) 1.6 k/uL (1.3-7.7); Neutrophils % (A) 48 %; Platelet Count 158 k/uL (150-450); RBC 4.02 m/uL (3.80-5.40); RDW 13.2 % (11.5-15.5); WBC 3.3 k/uL (3.8-10.6)
[2018-07-31 14:02] LABS: ALT 34 U/L (9-52); AST 27 U/L (14-36); Albumin 3.3 g/dL (3.5-5.0); Alkaline Phosphatase 79 U/L (38-126); Anion Gap 6 mmol/L; Blood Urea Nitrogen 7 mg/dL (7-17); Calcium 8.6 mg/dL (8.4-10.2); Carbon Dioxide 28 mmol/L (22-30); Chloride 106 mmol/L (98-107); Glucose 79 mg/dL (74-99); Potassium 4.1 mmol/L (3.5-5.1); Sodium 140 mmol/L (137-145); Total Bilirubin 0.6 mg/dL (0.2-1.3)
[2018-07-31] MEDS: HEPARIN SODIUM,PORCINE 5,000 UNIT/ML 1 ML VIAL SQ SCH ×2 (16:05→23:12)
[2018-07-31] MEDS: FAMOTIDINE 20 MG/2 ML VIAL IV SCH (20:03)
[2018-08-01] MEDS: SODIUM CHLORIDE 0.9% 1,000 ML IV SCH (06:15)
[2018-08-01] MEDS: KETOROLAC 30 MG/ML 1 ML VIAL IVP SCH ×3 (06:15→17:12)
[2018-08-01] MEDS: HEPARIN SODIUM,PORCINE 5,000 UNIT/ML 1 ML VIAL SQ SCH ×2 (07:35→17:11)
[2018-08-01] MEDS: FAMOTIDINE 20 MG/2 ML VIAL IV SCH ×2 (07:35→21:22)
[2018-08-01 07:55] LABS: Glucose,Whole Blood 50 mg/dL (75-99)
[2018-08-01 08:11] LABS: Glucose,Whole Blood 72 mg/dL (75-99)
[2018-08-01 11:40] LABS: Glucose,Whole Blood 58 mg/dL (75-99)
[2018-08-01 12:09] LABS: Glucose,Whole Blood 89 mg/dL (75-99)
[2018-08-01] MEDS: D5-0.45% NACL WITH KCL 20MEQ/L 1,000 ML IV SCH ×2 (13:29→22:50)
--- NOTE | 2018-08-01 15:12 | FL ---
Small Bowel Follow Through. DATE OF EXAM: 08/01/2018 CLINICAL HISTORY: 48-year-old female evaluated for possible obstruction, diarrhea and constipation fo r one week, periumbilical pain. TECHNIQUE: A single contrast small bowel follow through is performed utilizing barium. Total fluoroscopy time: 78 seconds. Total images: 24. COMPARISON: Correlation CT 07/30/2018 FINDINGS: Septic Technician image of the abdomen shows oral contrast in the left upper quadrant and faintly outlining ascen ding colon. Surgical material left upper quadrant from patient's known Aurea-en-Y gastric bypass. Chol ecystectomy clips. Additional surgical clips in the pelvis. Degenerative changes lower lumbar spine. There is slightly prolonged small bowel transit time of 4 hours. Some loops in the left abdomen are mildly patulous at 3.2 cm. There is a normal mucosal fold pattern throughout the small bowel. There is no evidence of any stric ture or filling defect noted. The terminal ileum is spotted and appears unremarkable. Patient was tender while pressing the mid to upper abdomen especially the right upper quadrant. IMPRESSION: 1. Small bowel transit time of 4 hours is only mildly delayed. 2. Some borderline dilated small bowel loops in the left abdomen measuring up to 3.2 cm. No evidence for obstruction. 3. The pancreaticobiliary limb is not assessed on this study. Given questionably torqued appearance t o the duodenal sweep on the patient's recent CT, if symptoms fail to improve, consider the possibilit y of an internal hernia.
--- NOTE | 2018-08-01 16:21 | P.PN ---
Subjective Progress Note Date: 08/01/18 Principal diagnosis: Abdominal pain Patient underwent her small bowel series earlier today. Study was reviewed with Dr. Mccollum. Study shows somewhat slow transit but no definite obstruction seen. Pain is somewhat better today. Appetite seems to be improving. White blood cell count is normal. She is afebrile. Objective - Vital Signs Vital signs: Vital Signs Temp 98.0 F 08/01/18 12:55 Pulse 52 L 08/01/18 12:55 Resp 12 08/01/18 12:55 BP 145/74 08/01/18 12:55 Pulse Ox 99 08/01/18 12:55 Intake & Output 07/31/18 08/01/18 08/01/18 18:59 06:59 18:59 Intake Total 240 Output Total 0 Balance 240 0 Intake: Oral 240 Output: Stool 0 Other: # Voids 1 - Exam Abdomen: Soft, nondistended, mild mid abdominal tenderness, no rebound or guarding - Labs CBC & Chem 7: 07/31/18 13:29 07/31/18 13:29 Labs: Abnormal Lab Results - Last 24 Hours (Table) 08/01/18 08/01/18 08/01/18 Range/Units 07:41 08:02 11:30 POC Glucose (mg/dL) 50 L 72 L 58 L (75-99) mg/dL Microbiology - Last 24 Hours (Table) 07/30/18 21:50 Urine Culture - Final Urine,Voided Assessment and Plan (1) Partial small bowel obstruction Narrative/Plan: Small bowel series results reviewed with the patient today. We'll begin a clear liquid diet at this time. Will advance if tolerates. Reevaluate tomorrow. Current Visit: Yes Status: Acute Code(s): K56.600 - PARTIAL INTESTINAL OBSTRUCTION, UNSPECIFIED TO CAUSE SNOMED Code(s): 002521796
[2018-08-02] MEDS: KETOROLAC 30 MG/ML 1 ML VIAL IVP SCH (00:13)
[2018-08-02] MEDS: HEPARIN SODIUM,PORCINE 5,000 UNIT/ML 1 ML VIAL SQ SCH ×3 (00:13→16:29)
[2018-08-02] MEDS: FAMOTIDINE 20 MG/2 ML VIAL IV SCH ×2 (08:09→20:51)
[2018-08-02] MEDS: D5-0.45% NACL WITH KCL 20MEQ/L 1,000 ML IV SCH ×2 (08:32→18:15)
[2018-08-02 08:34] LABS: Glucose,Whole Blood 147 mg/dL (75-99)
--- NOTE | 2018-08-02 13:05 | P.PN ---
Subjective Progress Note Date: 08/02/18 Principal diagnosis: Abdominal pain Patient states she is feeling somewhat better. Pain for about 10 currently. She did have a few loose stools earlier today. Still with very little appetite and when she did eat she had increased pain. Stools are bilious. No vomiting or nausea. Objective - Vital Signs Vital signs: Vital Signs Temp 98.0 F 08/02/18 08:18 Pulse 62 08/02/18 08:18 Resp 16 08/02/18 08:18 BP 136/81 08/02/18 08:18 Pulse Ox 99 08/02/18 08:18 Intake & Output 08/01/18 08/02/18 08/02/18 18:59 06:59 18:59 Output Total 0 Balance 0 Output: Stool 0 Other: # Voids 1 - Exam Abdomen: Soft, mild mid abdominal tenderness, no rebound or guarding - Labs CBC & Chem 7: 07/31/18 13:29 07/31/18 13:29 Labs: Abnormal Lab Results - Last 24 Hours (Table) 08/02/18 Range/Units 08:24 POC Glucose (mg/dL) 147 H (75-99) mg/dL Microbiology - Last 24 Hours (Table) 07/30/18 21:50 Urine Culture - Final Urine,Voided Assessment and Plan (1) Partial small bowel obstruction Narrative/Plan: Continue full liquids. Repeat abdominal x-rays and labs tomorrow. Current Visit: Yes Status: Acute Code(s): K56.600 - PARTIAL INTESTINAL OBSTRUCTION, UNSPECIFIED TO CAUSE SNOMED Code(s): 603669851
[2018-08-02] MEDS ORDERED: ACETAMINOPHEN TAB 325 MG TAB PO PRN (18:50)
[2018-08-03] MEDS: HEPARIN SODIUM,PORCINE 5,000 UNIT/ML 1 ML VIAL SQ SCH ×3 (00:16→15:19)
[2018-08-03] MEDS: D5-0.45% NACL WITH KCL 20MEQ/L 1,000 ML IV SCH ×3 (04:03→22:49)
[2018-08-03] MEDS: FAMOTIDINE 20 MG/2 ML VIAL IV SCH ×2 (08:15→20:21)
[2018-08-03 08:38] LABS: Amylase 49 U/L (30-110); Lipase 60 U/L (23-300)
[2018-08-03 08:41] LABS: Basophils % (A) 1 %; Eosinophils # (A) 0.3 k/uL (0-0.7); Eosinophils % (A) 7 %; HCT 40.7 % (34.0-46.0); HGB 13.5 gm/dL (11.4-16.0); Lymphocytes # (A) 1.6 k/uL (1.0-4.8); Lymphocytes % (A) 39 %; MCH 29.6 pg (25.0-35.0); MCHC 33.2 g/dL (31.0-37.0); MCV 89.4 fL (80.0-100.0); Mean Platelet Volume 8.6; Monocytes # (A) 0.2 k/uL (0-1.0); Monocytes % (A) 5 %; Neutrophils # (A) 1.9 k/uL (1.3-7.7); Neutrophils % (A) 48 %; Platelet Count 206 k/uL (150-450); RBC 4.55 m/uL (3.80-5.40); RDW 13.3 % (11.5-15.5)
--- NOTE | 2018-08-03 10:48 | P.PN ---
<Josie Hernandez - Last Filed: 08/03/18 10:42> Subjective Progress Note Date: 08/03/18 48-year-old female seen this morning on rounds. Patient reports continues having loose stools after eating. Points to the mid abdomen as to the reference point as to where the discomfort is. States abdominal pain is significantly improved compared to admission. Reports had 3 watery yellow stools this morning Abdominal x-ray pending patient reports tolerating a liquid diet no nausea no vomiting white count this morning 4 afebrile Objective - Vital Signs Vital signs: Vital Signs Temp 97.6 F 08/03/18 08:13 Pulse 61 08/03/18 08:13 Resp 16 08/03/18 08:13 BP 150/81 08/03/18 08:13 Pulse Ox 100 08/03/18 08:13 Intake & Output 08/02/18 08/03/18 08/03/18 18:59 06:59 18:59 Intake Total 800 Balance 800 Intake: Intake, IV Titration 800 Amount D5-0.45% NaCl with KCl 800 20Meq/l 1,000 ml @ 100 mls/hr IV .Q10H [facility] Rx#: [id number] Other: # Voids 1 1 # Bowel Movements 1 - Exam Physical exam Abdomen soft not distended no guarding no rebound reports mild tenderness to the mid epigastric area "much better" reports had 3 watery yellow stools this morning tolerating a clear liquid was no nausea vomiting - Labs CBC & Chem 7: 08/03/18 08:09 07/31/18 13:29 Assessment and Plan Assessment: Impression Admission abdominal pain suspect due to partial small bowel obstruction Plan follow-up on pending abdominal x-ray Continue current plan of care further recommendations pending The above impression and plan of care have been discussed and directed by signing physician. Josie Hernandez nurse practitioner acting as scribe for signing physician. <Robert Gross - Last Filed: 08/03/18 15:36> Objective - Vital Signs Vital signs: Vital Signs Temp 98.4 F 08/03/18 15:00 Pulse 51 L 08/03/18 15:00 Resp 14 08/03/18 15:00 BP 156/79 08/03/18 15:00 Pulse Ox 100 08/03/18 15:00 Intake & Output 08/02/18 08/03/1808/03/18 18:59 06:59 18:59 Intake Total 800 Balance 800 Intake: Intake, IV Titration 800 Amount D5-0.45% NaCl with KCl 800 20Meq/l 1,000 ml @ 100 mls/hr IV .Q10H [facility] Rx#: [id number] Other: # Voids 1 2 # Bowel Movements 2 - Labs CBC & Chem 7: 08/03/18 08:09 07/31/18 13:29 Assessment and Plan Assessment: As above. Patient's x-ray today shows minimal small bowel distention. No definite obstructive pattern. Barium has reached to the rectum and for the most part has been evacuated. Pain is down to a 2 out of 10. She is eating more however having frequent loose stools with oral intake. Yesterday she was having pain anytime she ate or drank anything today its improved. Will advance to soft diet. Discharge later tonight or tomorrow if the patient is doing well. (1) Partial small bowel obstruction Current Visit: Yes Status: Acute Code(s): K56.600 - PARTIAL INTESTINAL OBSTRUCTION, UNSPECIFIED TO CAUSE SNOMED Code(s): 832011697
--- NOTE | 2018-08-03 12:31 | XR ---
EXAMINATION TYPE: XR abdomen complete w decub DATE OF EXAM: 08/03/2018 COMPARISON: 08/01/2018 HISTORY: Abdominal pain and diarrhea. TECHNIQUE: Supine, upright, and left side down lateral decubitus views of the abdomen are obtained. FINDINGS: There is extent to the previously ingested oral contrast through the colon with flocculatio n into the rectum. No dilated large bowel is seen. A few loops of scattered mildly dilated small neymar l measure up to 4.2 cm and may represent ileus. No pneumoperitoneum is seen. Cholecystectomy clips ar e noted. Moderate degenerative changes of the spine are present. Colonic air-fluid levels on the upri ght view are in keeping with the patient's history of diarrhea. Surgical sutures are noted left jeff idline near the gastroesophageal junction. Lung bases are unremarkable. IMPRESSION: Few colonic air-fluid levels in keeping with the patient's history of diarrhea, propulsion of previou sly ingested oral contrast through the rectum excluding complete bowel obstruction, and few prominent loops of small bowel suggesting ileus. No pneumoperitoneum.
[2018-08-04] MEDS: HEPARIN SODIUM,PORCINE 5,000 UNIT/ML 1 ML VIAL SQ SCH ×2 (00:03→08:45)
[2018-08-04 01:09] VITALS: RESP 16
[2018-08-04] MEDS: FAMOTIDINE 20 MG/2 ML VIAL IV SCH (08:45)
[2018-08-04] MEDS: D5-0.45% NACL WITH KCL 20MEQ/L 1,000 ML IV SCH (13:22)
[2018-08-04 13:40] VITALS: BP 145/79; PULSE 53; TEMP 97.7
[2018-08-04 13:52] VITALS: BMI 25.6
--- NOTE | 2018-08-04 14:44 | P.DS ---
<Josie Hernandez - Last Filed: 08/04/18 14:31> Providers Date of admission: 08/03/18 15:07 Expected date of discharge: 08/04/18 Attending physician: Robert Gross Primary care physician: [facility] Hospital Course: 48-year-old female presented to the emergency room with midepigastric pain. Patient has a history of 2 years ago having bariatric surgery by Dr. Hutchison. Patient states she saw Dr. Hutchison last in June this year for follow- up and been doing relatively well. Patient stated that she came into the emergency room because of a much epigastric suprapubic type pain she could not tolerate the pain reports that the week prior she been having loose stools. Starting on Tuesday last week she developed the abdominal pain persist over the weekend came into the emergency room to be evaluated. Patient stated pain increased when she attempted to eat. The white count was normal CAT scan showed possible small bowel obstruction with some edema in the small bowel mesentery Abdominal x-ray obtained the reviewing the report few colonic air-fluid level keeping with the patient's history of diarrhea,propulsion of previously ingested oral contrast to the rectum excluding complete bowel obstruction. Dietitian did see the patient and provided information regarding gastric no fiber diet On the day of discharge abdomen was soft nondistended patient stated a significant improvement in the abdominal pain compared to admission less stooling was felt to be appropriate to be discharged is felt to be hemodynamically stable Impression discharge diagnoses Present on admission midepigastric abdominal pain suspect due to possible partial small bowel obstruction resolved History of gastric bypass surgery [address] Hutchison The above impression and plan of care have been discussed and directed by signing physician. Josie Hernandez nurse practitioner acting as scribe for signing physician. Patient Condition at Discharge: Fair Plan - Discharge Summary Discharge Rx Participant: No New Discharge Prescriptions: Continue Multivitamins, Thera [Multivitamin (formulary)] 1 tab PO DAILY Thiamine [Vitamin B-1] 100 mg PO DAILY Calcium Carbonate [Calcium] 1,200 mg PO BID Vitamin A 8,000 units PO DAILY Discharge Medication List Calcium Carbonate [Calcium] 1,200 mg PO BID 04/03/18 [History] Multivitamins, Thera [Multivitamin (formulary)] 1 tab PO DAILY 04/03/18 [History ] Thiamine [Vitamin B-1] 100 mg PO DAILY 04/03/18 [History] Vitamin A 8,000 units PO DAILY 07/31/18 [History] Follow up Appointment(s)/Referral(s): Tamanna Pillai MD [STAFF PHYSICIAN] - 08/08/18 3:40 pm Paul Marrero MD [Primary Care Provider] - 08/10/18 11:00 am Patient Instructions/Handouts: Abdominal Pain (ED) Activity/Diet/Wound Care/Special Instructions: Continue soft mushy foods as tolerated per Josie and dietary guidelines. Fluids are always encouraged. Call physician with any questions comments concerns worsening returning symptoms that brought you to the hospital, not tolerating diet, not tolerating fluids fever, 101.1 or higher. Discharge Disposition: HOME SELF-CARE <Robert Gross - Last Filed: 08/04/18 15:42> - Discharge Diagnosis(es) (1) Partial small bowel obstruction Status: Acute Hospital Course: As above. Patient presented with what appeared to represent a partial small bowel obstruction. Her symptoms gradually improved throughout the hospital stay. She is doing well at this time. Tolerating soft foods. Pain is absent presently. Agree with plans for discharge. Follow-up with her bariatric surgeon next week.
--- NOTE | 2018-08-09 16:11 | CDI ---
Last Revision, September 2017 Documentation Clarification Form Date: 08/09/18 From: Brisa Lawson Phone: If you have a question regarding this query, please contact Maria Alejandra Martinez at [phone] between 8am and 5pm. Admit Date: 08/03/2018 3:07:00 PM Patient Name: Paz Escalera Visit Number: [id number] Discharge Date: ATTENTION: The Clinical Documentation Specialists (CDI) and [facility] Coding Staff appreciate your assistance in clarifying documentation. Please respond to the clarification below the line at the bottom and electronically sign. The CDI & [facility] Coding staff will review the response and follow-up if needed. Please note: Queries are made part of the Legal Health Record. If you have any questions, please contact the author of this message via ITS. Robert Ayers MD Parital small bowel obstruction is documented in the H&P, discharge summary and progress notes. Patient history/risk factors: Patient has a history of tasha-en-Y surgery 2 years ago and an abdominoplasty earlier this year. Clinical Indicators: Mid abdominal pain with pain increasing with eating, diarrhea and some nausea. Radiology findings: CT scan of the abdomen: There is small bowel mesenteric edema of uncertain significance. The oral contrast does not progress very far that raises the possiblity of an intestinal motility disorder. Treatment: Clear liquid diet, IV Toradol and IV Morphine for pain In your professional opinion, can you please clarify the cause of the partial small bowel obstruction? Tasha-en-Y Abdominoplasty Other, please specify Unable to determine MTDD
== END 2018-08-04 15:40 | disposition home or self-care (01) | DRG 390 ==
LOC: EC 18:46 → 6PED 07-31 → OBSVTOIN 08-03 15:07 → 6PED 08-04 10:33
PROVIDERS: ADMIT Surgery; ATTEND Surgery
DX: K56.600 Partial intestinal obstruction, unspecified as to cause (principal); M35.00 Sjogren syndrome, unspecified; E11.9 Type 2 diabetes mellitus without complications; E78.5 Hyperlipidemia, unspecified; E16.2 Hypoglycemia, unspecified; F41.9 Anxiety disorder, unspecified; G47.30 Sleep apnea, unspecified; I10 Essential (primary) hypertension; I87.2 Venous insufficiency (chronic) (peripheral); J45.909 Unspecified asthma, uncomplicated; K21.9 Gastro-esophageal reflux disease without esophagitis; K58.9 Irritable bowel syndrome, unspecified; M79.7 Fibromyalgia; M19.90 Unspecified osteoarthritis, unspecified site; Z98.84 Bariatric surgery status; Z96.651 Presence of right artificial knee joint; Z90.710 Acquired absence of both cervix and uterus; Z90.49 Acquired absence of other specified parts of digestive tract; Z88.5 Allergy status to narcotic agent; Z91.011 Allergy to milk products; Z86.14 Personal history of Methicillin resistant Staphylococcus aureus infection; Z82.49 Family history of ischemic heart disease and other diseases of the circulatory system; Z83.3 Family history of diabetes mellitus; Z83.49 Family history of other endocrine, nutritional and metabolic diseases
CPT/HCPCS: 36415; 74018; 74021; 74177; 74250; 80053; 81001; 82150; 82550; 82553; 83605; 83690; 84484; 85025; 87086; 96361; 96374; 96375; 99285

== ENCOUNTER → 2018-08-11 | Day surgery (SDC) | payer MEDICARE ==
[2018-08-09 11:04] VITALS: BMI 24.0
[~2018-08-11] MED LIST changes: +ACETAMINOPHEN IV (For NPO) 1,000 MG in EMPTY BAG 1 BAG IVPB ONE; +ACETAMINOPHEN IV (For NPO) 1,000 MG/100 ML VIAL IVPB ONE; +BUPIVACAIN-EPI 0.25%-1:200,000 30 ML VIAL SQ ONE; +GLYCOPYRROLATE 0.2 MG/ML 2 ML VIAL ONE; +HEPARIN SODIUM,PORCINE 5,000 UNIT/ML 1 ML VIAL SQ ONE; +LACTATED RINGERS 1,000 ML IV ONE; +LACTATED RINGERS 1,000 ML IV SCH; +MEPERIDINE 50 MG/ML SYRINGE IVP ONE; +MIDAZOLAM 2 MG/2 ML VIAL ONE; +NEOSTIGMINE 1 MG/ML 10 ML VIAL ONE; +PROPOFOL 10 MG/ML 20 ML VIAL IV ONE; -Pre Op ABX Message 1 EACH MISC MISCELLANE ONE; +ROCURONIUM BROMIDE 10 MG/ML 10 ML VIAL IV ONE; +SUCCINYLCHOLINE CHLORIDE 100 MG/5 ML SYR IV ONE; +ceFAZolin IN SWFI 2 GM/20 ML SYRINGE IVP ONE; +fentaNYL (PF) 50 MCG/ML 2 ML AMP IV PRN; +fentaNYL (PF) 50 MCG/ML 2 ML AMP ONE
--- NOTE | 2018-08-11 05:36 | P.GSHP ---
History of Present Illness H&P Date: 08/11/18 CHIEF COMPLAINT: History of small bowel obstruction HISTORY OF PRESENT ILLNESS: The patient is a 48-year-old female who presents with history of intra-abdominal adhesions and bowel obstruction. She now presents for diagnostic laparoscopy including lysis of adhesions. PAST MEDICAL HISTORY: Please see list. PAST SURGICAL HISTORY: Please see list. MEDICATIONS: Please see list. ALLERGIES: Please see list. SOCIAL HISTORY: No illicit drug use FAMILY HISTORY: No reports of Crohn disease or ulcerative colitis. REVIEW OF ORGAN SYSTEMS: CONSTITUTIONAL: No reports of fevers or chills. GI: Denies any blood in stools or constipation. PHYSICAL EXAM: VITAL SIGNS: Stable GENERAL: Well-developed pleasant and in no acute distress. HEENT: No scleral icterus. Extraocular movements grossly intact. Moist buccal mucosa. NECK: Supple without lymphadenopathy. CHEST: Unlabored respirations. Equal bilateral excursions. CARDIOVASCULAR: Regular rate and rhythm. Distal 2+ pulses. ABDOMEN: Soft, diffuse abdominal tenderness. No peritonitis. MUSCULOSKELETAL: No clubbing, cyanosis, or edema. ASSESSMENT: 1. Diffuse abdominal pain. 2. History of small bowel obstruction. 3. Intra-abdominal adhesions. PLAN: 1. Robotic lysis of adhesions were described in detail including risk of injury to the intestine, need for further surgery, and open technique. 2. DVT prophylaxis. 3. Antibiotic prophylaxis. Past Medical History Past Medical History: Fibromyalgia, Osteoarthritis (OA), Skin Disorder Additional Past Medical History / Comment(s): Sjogrens syndrome, hypoglycemia, Hx. of Asthma. History of Any Multi-Drug Resistant Organisms: MRSA Date of last positivie culture/infection: 2013 MDRO Source:: knee joint 2013 finished rx in December 2015 Past Surgical History: Bariatric Surgery, Cholecystectomy, Hysterectomy, Joint Replacement, Orthopedic Surgery, Tonsillectomy Additional Past Surgical History / Comment(s): 08/16/16 Laparoscopic Aurea-En Y gastric bypass.,EGD. Other surgical hx: Laparoscopy x3. AT 1 WEEKS OLD, REPAIR OF PYLORIC STENOSIS. Left knee arthroscopic x4 with reconstruction x2. Total knee replacement 2008. Right total knee replacement 2009, removal of right knee replacement (MRSA) and spacer inserted. panniculectomy 04-17-18 Past Anesthesia/Blood Transfusion Reactions: Postoperative Nausea & Vomiting ( PONV) Smoking Status: Never smoker - Past Family History Mother Family Medical History: Congestive Heart Failure (CHF), Diabetes Mellitus, Hyperlipidemia, Hypertension, Thyroid Disorder Medications and Allergies Home Medications Medication Instructions Recorded Confirmed Type Calcium Carbonate [Calcium] 1,200 mg PO BID 04/03/18 07/30/18 History Multivitamins, Thera [Multivitamin 1 tab PO DAILY 04/03/18 07/30/18 History (formulary)] Thiamine [Vitamin B-1] 100 mg PO DAILY 04/03/18 07/30/18 History Vitamin A 8,000 units PO DAILY 07/31/18 07/31/18 History Allergies Allergy/AdvReac Type Severity Reaction Status Date / Time codeine Allergy Intermediate Chest Pain Verified 07/31/18 00:59 morphine AdvReac Intermediate Chest Pain Verified 07/31/18 00:59 Milk Containing Products AdvReac Diarrhea Verified 07/30/18 19:23 [Dairy] environment Allergy Mild Unknown Uncoded 06/28/18 14:02
[2018-08-11 11:20] LABS: Glucose,Whole Blood 80 mg/dL (75-99)
[2018-08-11 14:48] VITALS: TEMP 98.6
--- NOTE | 2018-08-11 14:48 | P.OP ---
Date of Procedure: 08/11/18 Description of Procedure: SURGEON: DEDRICK SANDHU MD PREOPERATIVE DIAGNOSES: 1. Periumbilical abdominal pain 2. History of small bowel obstruction 3. Status post gastric bypass. 4. Body mass index reduced from 60.5 down to 24.2 5. Status post massive weight loss of 211 pounds lifetime. 6. Status post panniculectomy for panniculitis POSTOPERATIVE DIAGNOSES: 1. Periumbilical abdominal pain 2. History of small bowel obstruction 3. Status post gastric bypass. 4. Body mass index reduced from 60.5 down to 24.2 5. Status post massive weight loss of 211 pounds lifetime. 6. Status post panniculectomy for panniculitis 7. Intermittent small bowel obstruction due to internal hernia from adhesive band, left lower pelvis OPERATION: 1. Robotic-assisted da Jose Miguel Xi laparoscopic lysis of adhesions over 30 minutes Anesthesia: GETA, local Estimated Blood Loss (ml): 5 Pathology: other (Adhesive band) Condition: stable Disposition: same day COMPLICATIONS: None. Operative Findings: 1. No Toney's defect or jejunojejunostomy mesenteric defect 2. Bowel obstruction identified from adhesive band from previous hysterectomy at left pelvis causing internal hernia involving sigmoid colon and small bowel reduced 3. Adhesive band excised 4. Console time 37 minutes INDICATIONS: The patient is a 48-year-old female who presents with small bowel obstruction. She has history of previous gastric bypass including multiple abdominal surgeries. Diagnostic laparoscopy was described. Robotic-assisted approach was described. Benefits and risks, including possibility of open technique were described at length. Informed consent was obtained. DESCRIPTION OF PROCEDURE: The patient was brought into the operating room and laid in supine position. After general induction, the abdomen had been prepped and draped in standard sterile fashion. Ioban draping was also placed. Prior to incision, a timeout protocol was confirmed with surgical team regarding the patient's name including procedures to be performed. The robot was primed prior to the procedure. A field block using local anesthetic was placed along the proposed port sites. Initial incision was made with an #11 blade along the left upper quadrant. A 0 degree 5 mm laparoscopic trocar entry was performed. The abdomen was insufflated to 15 mmHg pressure she tolerated well. Diagnostic laparoscopy demonstrated redundant sigmoid colon. The liver was unremarkable. No inguinal hernias were identified. Focally dilated small bowel midabdomen was confirmed. Along the right lateral abdominal wall, three 8 mm robotic ports were placed. Placements of the ports were 20 cm from the target anatomy and approximately 8 to 10 cm apart. The da Jose Miguel XI robot was previously primed, prepped and draped. I then sat at the robot Da Jose Miguel XI console where working arms of the robot including Bovie cautery connected to robotic scissors, graspers and vessel sealer by the accounting manager assistant controller. In anterograde fashion, the gastric pouch including Aurea limb were investigated towards the jejunojejunostomy. No Blankenship's defect was identified. No internal hernia of the jejunojejunostomy mesentery was found. Along the left pelvis, adhesive band incorporating the sigmoid colon and small bowel was found creating an internal hernia. The adhesive and was excised. The rest of small bowel dilation had resolved. The small bowel was re-investigated in a retrograde fashion as well as the antegrade fashion to confirm no remaining internal hernias or small bowel volvulus. Final inspection of the abdomen demonstrated adequate hemostasis including no enterotomies. All instruments and pneumoperitoneum were evacuated from the abdominal cavity. The da Jose Miguel XI robot was undocked from the patient. I re-scrubbed into the case for closure of incisions. The incisions were reapproximated using 4-0 Monocryl in an interrupted subcuticular fashion. Liquid glue was applied to the skin. At the end of the procedure, needle, sponge, and instrument count had been verified correct by cardiovascular surgical tech. The patient was taken to the postanesthesia care unit in stable condition.
[2018-08-11 14:59] VITALS: RESP 16
[2018-08-11 16:20] VITALS: BP 131/71; PULSE 74
== END | disposition home or self-care (01) ==
LOC: OR 10:21
PROVIDERS: ATTEND Surgery Plastic and Reconstructive Surgery
DX: K56.50 Intestinal adhesions [bands], unspecified as to partial versus complete obstruction (principal); Z98.84 Bariatric surgery status; Z68.24 Body mass index [BMI] 24.0-24.9, adult; Z90.710 Acquired absence of both cervix and uterus; M79.7 Fibromyalgia; M19.90 Unspecified osteoarthritis, unspecified site; L98.9 Disorder of the skin and subcutaneous tissue, unspecified; M35.00 Sjogren syndrome, unspecified; J45.909 Unspecified asthma, uncomplicated; E16.2 Hypoglycemia, unspecified; Z96.653 Presence of artificial knee joint, bilateral; Z90.49 Acquired absence of other specified parts of digestive tract; Z88.5 Allergy status to narcotic agent; Z86.14 Personal history of Methicillin resistant Staphylococcus aureus infection
CPT/HCPCS: 88304; 44180; J2250; J1644; J1100; J2710; J2175; J2405; J3010; J0131; J0330; J2704; J0690

== ENCOUNTER → 2018-08-17 | Outpatient (CLI) | payer MEDICARE ==
[~2018-08-17] MED LIST changes: -ACETAMINOPHEN IV (For NPO) 1,000 MG in EMPTY BAG 1 BAG IVPB ONE; -ACETAMINOPHEN IV (For NPO) 1,000 MG/100 ML VIAL IVPB ONE; -BUPIVACAIN-EPI 0.25%-1:200,000 30 ML VIAL SQ ONE; -DEXAMETHASONE SOD PHOSPHATE 10 MG/ML 1 ML VIAL IV ONE; -GLYCOPYRROLATE 0.2 MG/ML 2 ML VIAL ONE; -HEPARIN SODIUM,PORCINE 5,000 UNIT/ML 1 ML VIAL SQ ONE; -LACTATED RINGERS 1,000 ML IV ONE; -LACTATED RINGERS 1,000 ML IV SCH; -MEPERIDINE 50 MG/ML SYRINGE IVP ONE; -MIDAZOLAM 2 MG/2 ML VIAL IV PRN; -MIDAZOLAM 2 MG/2 ML VIAL ONE; -NEOSTIGMINE 1 MG/ML 10 ML VIAL ONE; -ONDANSETRON 4 MG/2 ML VIAL IVP ONE; -PROPOFOL 10 MG/ML 20 ML VIAL IV ONE; -ROCURONIUM BROMIDE 10 MG/ML 10 ML VIAL IV ONE; -SCOPOLAMINE 1.5MG/72HR PATCH TRANSDERM ONE; +SODIUM CHLORIDE 0.9% 1,000 ML IV SCH; +SODIUM CHLORIDE 0.9% 500 ML 500 ML in EMPTY BAG 1 BAG IV PRN; -SUCCINYLCHOLINE CHLORIDE 100 MG/5 ML SYR IV ONE; -ceFAZolin IN SWFI 2 GM/20 ML SYRINGE IVP ONE; -fentaNYL (PF) 50 MCG/ML 2 ML AMP IV PRN; -fentaNYL (PF) 50 MCG/ML 2 ML AMP ONE
[2018-08-17 09:18] VITALS: TEMP 98.5; BMI 24.0
--- NOTE | 2018-08-17 09:21 | P.PN ---
Subjective Progress Note Date: 08/17/18 HPI: She reports still not feeling herself. She has not ate much. She has started to have BMs. She reports easy gas bloat. ABDOMEN: Incisions intact. Non distended. ASSESSMENT: 1. History of bowel obstruction PLAN: 1. Re-check electrolytes 2. Recommend IV fluid hydration, 2 liters 3. Thiamine, Vitamin A Objective - Vital Signs Vital signs: Vital Signs Temp 98.5 F 08/17/18 09:16 Pulse 82 08/17/18 09:16 Resp BP 146/95 08/17/18 09:16 Pulse Ox Intake & Output 08/16/18 08/17/18 08/17/18 18:59 06:59 18:59 Weight 63.684 kg
[2018-08-17 09:48] VITALS: BP 128/80; PULSE 73; RESP 16
[2018-08-17] MEDS: SODIUM CHLORIDE 0.9% 1,000 ML IV ONE ×2 (09:53→10:58)
[2018-08-17 10:26] LABS: Basophils % (A) 0 %; Eosinophils # (A) 0.2 k/uL (0-0.7); Eosinophils % (A) 7 %; HCT 40.5 % (34.0-46.0); HGB 13.2 gm/dL (11.4-16.0); Lymphocytes # (A) 1.3 k/uL (1.0-4.8); Lymphocytes % (A) 39 %; MCH 29.3 pg (25.0-35.0); MCHC 32.6 g/dL (31.0-37.0); MCV 89.6 fL (80.0-100.0); Mean Platelet Volume 8.5; Monocytes # (A) 0.1 k/uL (0-1.0); Monocytes % (A) 4 %; Neutrophils # (A) 1.7 k/uL (1.3-7.7); Neutrophils % (A) 49 %; Platelet Count 189 k/uL (150-450); RBC 4.52 m/uL (3.80-5.40); RDW 13.1 % (11.5-15.5); WBC 3.5 k/uL (3.8-10.6)
[2018-08-17 10:45] LABS: ALT 25 U/L (9-52); AST 15 U/L (14-36); Albumin 3.8 g/dL (3.5-5.0); Alkaline Phosphatase 70 U/L (38-126); Anion Gap 7 mmol/L; Blood Urea Nitrogen 12 mg/dL (7-17); Calcium 9.3 mg/dL (8.4-10.2); Carbon Dioxide 30 mmol/L (22-30); Chloride 106 mmol/L (98-107); Glucose 84 mg/dL (74-99); Potassium 4.5 mmol/L (3.5-5.1); Sodium 143 mmol/L (137-145); Total Bilirubin 0.5 mg/dL (0.2-1.3); Total Protein 6.8 g/dL (6.3-8.2)
[2018-08-17 17:56] LABS: Iron Saturation 19.08 (12.00-45.00)
== END | disposition home or self-care (01) ==
LOC: BARWHC3 08:36
PROVIDERS: ATTEND Surgery Plastic and Reconstructive Surgery
DX: E86.0 Dehydration (principal); Z88.5 Allergy status to narcotic agent
CPT/HCPCS: 80053; 84443; 82728; 83540; 83550; 85025; 96360; 96361; 36415; G0463; 99211

== ENCOUNTER 2018-08-20 15:08 | Emergency (ER) | payer MEDICARE ==
[2018-08-20 15:19] VITALS: PULSE 88; RESP 16; TEMP 98.5
[2018-08-20] MEDS ORDERED: SODIUM CHLORIDE 0.9% 1,000 ML IV STA ×2 (15:45)
[2018-08-20] MEDS ORDERED: ONDANSETRON 4 MG/2 ML VIAL IVP STA (15:45)
--- NOTE | 2018-08-20 15:47 | ED ---
Abdominal Pain HPI - General Chief Complaint: Abdominal Pain Stated Complaint: ABDOMINAL PAIN Time Seen by Provider: 08/20/18 15:24 Source: patient, RN notes reviewed, old records reviewed Mode of arrival: ambulatory Limitations: no limitations - History of Present Illness Initial Comments: Patient is a 48-year-old female with extensive surgical history including gastric bypass surgery, adhesions and bowel obstruction. Patient was seen by Dr. Hutchison on August 11 had surgery to remove adhesions due to bowel obstruction. Patient reports that she is been dealing with constipation and abdominal pain since that time. She reports that she's had a poor appetite. A few episodes of vomiting and nausea. Patient was seen by Dr. Hutchison on . She was given IV fluids at that time. Patient states that her last bowel movement was on Tuesday after she took a lot of milk of magnesia. She states she's not had one since that time, reports that she has lower abdominal fullness and pressure. - Related Data Home Medications Medication Instructions Recorded Confirmed Calcium Carbonate [Calcium] 1,200 mg PO BID 04/03/18 08/20/18 Multivitamins, Thera [Multivitamin 1 tab PO DAILY 04/03/18 08/20/18 (formulary)] Thiamine [Vitamin B-1] 100 mg PO DAILY 04/03/18 08/20/18 Vitamin A 8,000 units PO DAILY 07/31/18 08/20/18 Metoclopramide [Reglan] 10 mg PO DAILY 08/20/18 08/20/18 Previous Rx's Medication Instructions Recorded Docusate [Colace] 100 mg PO DAILY #20 capsule 08/20/18 Lactulose [Cephulac] 20 gm PO BID #300 ml 08/20/18 Allergies Allergy/AdvReac Type Severity Reaction Status Date / Time codeine Allergy Intermediate Chest Pain Verified 08/20/18 16:02 morphine AdvReac Intermediate Chest Pain Verified 08/20/18 16:02 Milk Containing Products AdvReac Diarrhea Verified 08/20/18 16:02 [Dairy] environment Allergy Mild Unknown Uncoded 08/20/18 15:19 Review of Systems ROS Statement: Those systems with pertinent positive or pertinent negative responses have been documented in the HPI. ROS Other: All systems not noted in ROS Statement are negative. Past Medical History Past Medical History: Fibromyalgia, Osteoarthritis (OA), Skin Disorder Additional Past Medical History / Comment(s): Sjogrens syndrome, hypoglycemia, Hx. of Asthma. History of Any Multi-Drug Resistant Organisms: MRSA Date of last positivie culture/infection: 2013 MDRO Source:: knee joint 2013 finished rx in December 2015 Past Surgical History: Bariatric Surgery, Cholecystectomy, Hysterectomy, Joint Replacement, Orthopedic Surgery, Tonsillectomy Additional Past Surgical History / Comment(s): 08/16/16 Laparoscopic Aurea-En Y gastric bypass.,EGD. Other surgical hx: Laparoscopy x3. AT 2 WEEKS OLD, REPAIR OF PYLORIC STENOSIS. Left knee arthroscopic x4 with reconstruction x2. Total knee replacement 2008. Right total knee replacement 2009, removal of right knee replacement (MRSA) and spacer inserted. panniculectomy 04-17-18 Past Anesthesia/Blood Transfusion Reactions: Postoperative Nausea & Vomiting ( PONV) Past Psychological History: Anxiety Smoking Status: Never smoker - Past Family History Mother Family Medical History: Congestive Heart Failure (CHF), Diabetes Mellitus, Hyperlipidemia, Hypertension, Thyroid Disorder General Exam - General Exam Comments Initial Comments: His is a 48-year-old female. Alert and oriented. Patient appears in no significant distress. Limitations: no limitations General appearance: alert, in no apparent distress Head exam: Present: atraumatic, normocephalic, normal inspection Eye exam: Present: normal appearance, PERRL, EOMI. Absent: scleral icterus, conjunctival injection, periorbital swelling ENT exam: Present: normal exam, mucous membranes moist Neck exam: Present: normal inspection. Absent: tenderness, meningismus, lymphadenopathy Respiratory exam: Present: normal lung sounds bilaterally. Absent: respiratory distress, wheezes, rales, rhonchi, stridor Cardiovascular Exam: Present: regular rate, normal rhythm, normal heart sounds. Absent: systolic murmur, diastolic murmur, rubs, gallop, clicks GI/Abdominal exam: Present: soft, hyperactive bowel sounds, other (Well- appearing incision sites. No drainage or erythema noted.). Absent: distended, tenderness, guarding, rebound, rigid, normal bowel sounds Extremities exam: Present: normal inspection, full ROM, normal capillary refill. Absent: tenderness, pedal edema, joint swelling, calf tenderness Course Vital Signs 08/20/18 08/20/18 08/20/18 15:17 17:55 19:00 Temperature 98.5 F Pulse Rate 88 Respiratory 16 Rate Blood Pressure 169/93 141/75 O2 Sat by Pulse 100 100 Oximetry Medical Decision Making - Medical Decision Making This is a 48-year-old female with recent adhesion removal surgery due to bowel instruction presents emergency department today with complaints of constipation for the past 5 days. Patient's surgeon is Dr. Hutchison. Patient was given IV fluids and laboratory obtained. Initial x-ray did show significant amount of stool burn in. Patient labwork was reviewed today and negative for any acute changes. Patient does initially not wanting enema, discussed that they did seem to be some air-fluid levels on the KUB. We wanted to rule out any further obstruction by doing a computed tomography scan. She agreed and proceeded with this. The CT was negative for any acute process. There is evidence of substantial postsurgical changes noted. At this time Patient was given an enema , she did have a small bowel movement afterwards. We did discuss the case with Dr. Hutchison, patient's surgeon. She recommended prescribing the Patient on lactulose and Colace to promote bowel movements. I discussed that she can follow-up with her tomorrow in the office. Patient will be given prescriptions for both and discuss close return parameters. Family understands treatment plan as well. - Lab Data Result diagrams: 08/20/18 16:00 08/20/18 16:00 Lab Results 08/20/18 08/20/18 08/20/18 Range/Units 16:00 16:00 16:00 WBC 3.9 (3.8-10.6) k/uL RBC 4.54 (3.80-5.40) m/uL Hgb 13.3 (11.4-16.0) gm/dL Hct 40.1 (34.0-46.0) % MCV 88.3 (80.0-100.0) fL MCH 29.4 (25.0-35.0) pg MCHC 33.3 (31.0-37.0) g/dL RDW 13.2 (11.5-15.5) % Plt Count 158 (150-450) k/uL Neutrophils % 51 % Lymphocytes % 37 % Monocytes % 6 % Eosinophils % 4 % Basophils % 1 % Neutrophils # 2.0 (1.3-7.7) k/uL Lymphocytes # 1.4 (1.0-4.8) k/uL Monocytes # 0.2 (0-1.0) k/uL Eosinophils # 0.2 (0-0.7) k/uL Basophils # 0.0 (0-0.2) k/uL PT (9.0-12.0) sec INR (<1.2) APTT (22.0-30.0) sec Sodium 142 (137-145) mmol/L Potassium 4.1 (3.5-5.1) mmol/L Chloride 108 H (98-107) mmol/L Carbon Dioxide 28 (22-30) mmol/L Anion Gap 6 mmol/L BUN 16 (7-17) mg/dL Creatinine 0.61 (0.52-1.04) mg/dL Est GFR (CKD-EPI)AfAm >90 (>60 ml/min/1.73 sqM) Est GFR (CKD-EPI)NonAf >90 (>60 ml/min/1.73 sqM) Glucose 99 (74-99) mg/dL Plasma Lactic Acid Juan Carlos 1.0 (0.7-2.0) mmol/L Calcium 9.3 (8.4-10.2) mg/dL Total Bilirubin 0.4 (0.2-1.3) mg/dL AST 16 (14-36) U/L ALT 30 (9-52) U/L Alkaline Phosphatase 68 (38-126) U/L Total Protein 7.0 (6.3-8.2) g/dL Albumin 4.1 (3.5-5.0) g/dL Amylase 73 (30-110) U/L Lipase 93 (23-300) U/L Urine Color Urine Appearance (Clear) Urine pH (5.0-8.0) Ur Specific Lawrence (1.001-1.035) Urine Protein (Negative) Urine Glucose (UA) (Negative) Urine Ketones (Negative) Urine Blood (Negative) Urine Nitrite (Negative) Urine Bilirubin (Negative) Urine Urobilinogen (<2.0) mg/dL Ur Leukocyte Esterase (Negative) Urine RBC (0-5) /hpf Urine WBC (0-5) /hpf Ur Squamous Epith Cells (0-4) /hpf Urine Mucus (None) /hpf 08/20/18 08/20/18 Range/Units 16:00 Unknown WBC (3.8-10.6) k/uL RBC (3.80-5.40) m/uL Hgb (11.4-16.0) gm/dL Hct (34.0-46.0) % MCV (80.0-100.0) fL MCH (25.0-35.0) pg MCHC (31.0-37.0) g/dL RDW (11.5-15.5) % Plt Count (150-450) k/uL Neutrophils % % Lymphocytes % % Monocytes % % Eosinophils % % Basophils % % Neutrophils # (1.3-7.7) k/uL Lymphocytes # (1.0-4.8) k/uL Monocytes # (0-1.0) k/uL Eosinophils # (0-0.7) k/uL Basophils # (0-0.2) k/uL PT 10.5 (9.0-12.0) sec INR 1.1 (<1.2) APTT 23.0 (22.0-30.0) sec Sodium (137-145) mmol/L Potassium (3.5-5.1) mmol/L Chloride (98-107) mmol/L Carbon Dioxide (22-30) mmol/L Anion Gap mmol/L BUN (7-17) mg/dL Creatinine (0.52-1.04) mg/dL Est GFR (CKD-EPI)AfAm (>60 ml/min/1.73 sqM) Est GFR (CKD-EPI)NonAf (>60 ml/min/1.73 sqM) Glucose (74-99) mg/dL Plasma Lactic Acid Juan Carlos (0.7-2.0) mmol/L Calcium (8.4-10.2) mg/dL Total Bilirubin (0.2-1.3) mg/dL AST (14-36) U/L ALT (9-52) U/L Alkaline Phosphatase (38-126) U/L Total Protein (6.3-8.2) g/dL Albumin (3.5-5.0) g/dL Amylase (30-110) U/L Lipase (23-300) U/L Urine Color Yellow Urine Appearance Clear (Clear) Urine pH 6.5 (5.0-8.0) Ur Specific Lawrence 1.015 (1.001-1.035) Urine Protein Negative (Negative) Urine Glucose (UA) Negative (Negative) Urine Ketones Negative (Negative) Urine Blood Negative (Negative) Urine Nitrite Negative (Negative) Urine Bilirubin Negative (Negative) Urine Urobilinogen <2.0 (<2.0) mg/dL Ur Leukocyte Esterase Small H (Negative) Urine RBC 1 (0-5) /hpf Urine WBC 3 (0-5) /hpf Ur Squamous Epith Cells <1 (0-4) /hpf Urine Mucus Rare H (None) /hpf - Radiology Data Radiology results: report reviewed CT she is evidence of previous surgery. No dilated ducts. No signs of acute abdomen and pelvis. An acute abdomen. No acute changes. Disposition Clinical Impression: Constipation, Abdominal pain Disposition: HOME SELF-CARE Condition: Good Instructions: Abdominal Pain (ED) Additional Instructions: Patient denies increased fluid intake, take a stool softener medication as prescribed. Have close follow-up with Dr. Hutchison. Return to the emergency department if any alarming signs or symptoms occur. Prescriptions: Docusate [Colace] 100 mg PO DAILY #20 capsule Lactulose [Cephulac] 20 gm PO BID #300 ml Is patient prescribed a controlled substance at d/c from ED?: No Referrals: Paul Marrero MD [Primary Care Provider] - 1-2 days Time of Disposition: 19:39
[2018-08-20 16:23] LABS: Basophils % (A) 1 %; Eosinophils # (A) 0.2 k/uL (0-0.7); Eosinophils % (A) 4 %; HCT 40.1 % (34.0-46.0); HGB 13.3 gm/dL (11.4-16.0); Lymphocytes # (A) 1.4 k/uL (1.0-4.8); Lymphocytes % (A) 37 %; MCH 29.4 pg (25.0-35.0); MCHC 33.3 g/dL (31.0-37.0); MCV 88.3 fL (80.0-100.0); Mean Platelet Volume 8.7; Monocytes # (A) 0.2 k/uL (0-1.0); Monocytes % (A) 6 %; Neutrophils % (A) 51 %; Platelet Count 158 k/uL (150-450); RBC 4.54 m/uL (3.80-5.40); RDW 13.2 % (11.5-15.5); WBC 3.9 k/uL (3.8-10.6)
--- NOTE | 2018-08-20 16:27 | XR ---
EXAMINATION TYPE: XR KUB DATE OF EXAM: 08/20/2018 COMPARISON: 07/30/2018 HISTORY: Abdominal pain TECHNIQUE: 2 views upright FINDINGS: There is no sign of intestinal obstruction or pneumoperitoneum. Fecal pattern is normal. Th ere are clips from cholecystectomy. There are no pathologic calcifications over the kidneys. IMPRESSION: Nonacute abdomen. No change.
[2018-08-20 16:29] LABS: INR 1.1 (<1.2); Prothrombin Time 10.5 sec (9.0-12.0)
[2018-08-20 16:32] LABS: ALT 30 U/L (9-52); AST 16 U/L (14-36); Albumin 4.1 g/dL (3.5-5.0); Alkaline Phosphatase 68 U/L (38-126); Amylase 73 U/L (30-110); Anion Gap 6 mmol/L; Blood Urea Nitrogen 16 mg/dL (7-17); Calcium 9.3 mg/dL (8.4-10.2); Carbon Dioxide 28 mmol/L (22-30); Chloride 108 mmol/L (98-107); Glucose 99 mg/dL (74-99); Lipase 93 U/L (23-300); Potassium 4.1 mmol/L (3.5-5.1); Sodium 142 mmol/L (137-145); Total Bilirubin 0.4 mg/dL (0.2-1.3)
[2018-08-20] MEDS ORDERED: KETOROLAC 30 MG/ML 1 ML VIAL IVP STA (16:52)
[2018-08-20 17:33] LABS: Appearance,Urine Clear (Clear); Bilirubin,Urine Negative (Negative); Blood,Urine Negative (Negative); Color,Urine Yellow; Glucose,Urine (UA) Negative (Negative); Ketones,Urine Negative (Negative); Leukocyte Esterase,Urine Small (Negative); Mucus,Urine Rare /hpf; Nitrite,Urine Negative (Negative); PH, Urine 6.5 (5.0-8.0); Protein,Urine Negative (Negative); RBC,Urine 1 /hpf (0-5); Specific Gravity,Urine 1.015 (1.001-1.035); Squamous Epithelial Cell,Urine <1 /hpf (0-4); Urobilinogen,Urine <2.0 mg/dL (<2.0); WBC,Urine 3 /hpf (0-5)
--- NOTE | 2018-08-20 17:33 | CT ---
EXAMINATION TYPE: CT abdomen pelvis w con DATE OF EXAM: 08/20/2018 COMPARISON: 07/30/2018 HISTORY: Lower abdominal pain, nausea,vomiting and constipation x5 days. Recent bowel obstruction saul tere CT DLP: 636.3 mGycm Automated exposure control for dose reduction was used. TECHNIQUE: Helical acquisition of images was performed from the lung bases through the pelvis. CONTRAST: Performed without Oral Contrast and with IV Contrast, patient injected with 100ml mL of Isovue 300. FINDINGS: Lung bases are clear. There is no pleural effusion. Heart size is normal. There are numerous surgical clips from bariatric surgery on the stomach. There are clips from cholecy stectomy. Bile ducts are not dilated. Spleen appears normal. Pancreas appears normal. There is no adr enal mass. Kidneys show satisfactory contrast opacification. There is no hydronephrosis. Ureters are not dilated. There is no retroperitoneal adenopathy. Bladder distends smoothly. There is no free flui d in the pelvis. I see no intestinal wall thickening. There are no dilated loops. There is no sign of free air. There is no mesenteric edema or adenopathy. IMPRESSION: PREVIOUS SURGERY. NO DILATED DUCTS. NO SIGN OF ACUTE ABDOMEN AND PELVIS.
[2018-08-20] MEDS ORDERED: METOCLOPRAMIDE 5 MG/ML 2 ML VIAL IVP STA (19:13)
[2018-08-20 19:35] VITALS: BP 141/75
== END 2018-08-20 20:01 | disposition home or self-care (01) ==
LOC: EC 15:08
DX: K59.00 Constipation, unspecified (principal); R10.9 Unspecified abdominal pain; R11.2 Nausea with vomiting, unspecified; M19.90 Unspecified osteoarthritis, unspecified site; Z86.14 Personal history of Methicillin resistant Staphylococcus aureus infection; Z79.899 Other long term (current) drug therapy; Z88.5 Allergy status to narcotic agent; Z91.011 Allergy to milk products; Z91.048 Other nonmedicinal substance allergy status; Z98.84 Bariatric surgery status; Z90.49 Acquired absence of other specified parts of digestive tract
CPT/HCPCS: 36415; 80053; 82150; 83605; 83690; 85025; 85610; 85730; 81001; 74018; 74177; 99285; 96374; 96375 ×2; 96361 ×4; J2765; J2405; J1885; Q9967

== ENCOUNTER → 2018-08-23 | Outpatient (CLI) | payer MEDICARE ==
[2018-08-23 16:26] VITALS: BP 157/86; PULSE 78; TEMP 98.2
--- NOTE | 2018-08-23 16:35 | P.PN ---
Subjective Progress Note Date: 08/23/18 DATE OF SERVICE: 08/23/2018 CHIEF COMPLAINT: Follow-up bowel obstruction HISTORY OF PRESENT ILLNESS: Paz Escalera is a 47-year-old female status post lysis of adhesions, 08/11/18. She is 2 weeks out. She was in the ER for abdominal distention. She reports minimal bowel movements and having chronic gas bloat. At her height of 5 feet 4 inches, her ideal body weight is 144 pounds. Her highest weight is 352 pounds. Today she comes in weighing 137 pounds from 140 pounds, 1 week ago. She has lost 3 pounds in 1 week. She has lost 215 pounds. Percent excess weight loss is 104%. Her body mass index is reduced from 60.5 down to 23.5. PHYSICAL EXAM: VITAL SIGNS: 5 feet 4 inches, 137 pounds. Body mass index of 23.5. Vital Signs Temp 98.2 F 08/23/18 16:11 Pulse 78 08/23/18 16:11 Resp BP 157/86 08/23/18 16:11 Pulse Ox ABDOMEN: Soft. Mild abdominal distention MUSCULOSKELETAL: No clubbing, cyanosis, or edema. GENERAL: Well-developed female in no acute distress. HEENT: No scleral icterus. Extraocular movements grossly intact. NECK: Supple without lymphadenopathy. CHEST: Nonlabored respirations with equal bilateral excursions. CARDIOVASCULAR: Regular rate. Regular rhythm. NEURO: No focal or lateralizing signs. Cranial nerves 2-12 grossly within normal limits. PSYCH: Appropriate affect. Alert and oriented to person, place and time. SKIN: Well perfused. Good skin turgor. STUDIES: CT of the abdomen and pelvis was reviewed demonstrating moderate stool. No evidence of bowel obstruction ASSESSMENT: 1. Morbid obesity due to excess calories. 2. Body mass index reduced from 60.5 down to 23.5 3. Status post Aurea-en-Y gastric bypass. 4. Status post massive weight loss of 212 pounds lifetime. 5. Status post lysis of adhesions for small bowel obstruction 6. Constipation 7. Abdominal distention PLAN: 1. Smooth move tea for constipation 2. Simethicone drops for gas and abdominal distention Objective - Vital Signs Vital signs: Vital Signs Temp 98.2 F 08/23/18 16:11 Pulse 78 08/23/18 16:11 Resp BP 157/86 08/23/18 16:11 Pulse Ox
[2018-08-23 17:54] VITALS: BMI 23.5
== END | disposition home or self-care (01) ==
LOC: BARWHC3 15:39
PROVIDERS: ATTEND Surgery Plastic and Reconstructive Surgery
DX: E66.01 Morbid (severe) obesity due to excess calories (principal); K56.50 Intestinal adhesions [bands], unspecified as to partial versus complete obstruction; K59.00 Constipation, unspecified; R14.0 Abdominal distension (gaseous); R63.4 Abnormal weight loss; Z68.23 Body mass index [BMI] 23.0-23.9, adult; Z98.84 Bariatric surgery status
CPT/HCPCS: 99211

== ENCOUNTER → 2018-09-13 | Outpatient (CLI) | payer MEDICARE ==
[2018-09-13 16:42] VITALS: RESP 16; TEMP 98.3; BMI 24.2
--- NOTE | 2018-09-13 17:22 | P.PN ---
Subjective Progress Note Date: 09/13/18 HPI: She reports right lower quadrant pain. She has severe constipation. Her weight has been stable. She has occassional emesis with phelgm. She has chronicled her meals. She has low blood sugars. She had a bowel movement after 3 weeks. ABDOMEN: Mild tenderness at right lower quadrant. A/P 1. History of small bowel obstruction 2. Probiotic advised. 3. AXR of the abdomen. 4. Possible ileus Objective - Vital Signs Vital signs: Vital Signs Temp 98.3 F 09/13/18 16:40 Pulse 81 09/13/18 16:40 Resp 16 09/13/18 16:40 BP 184/91 09/13/18 16:40 Pulse Ox Intake & Output 09/12/18 09/13/18 09/13/18 18:59 06:59 18:59 Weight 63.985 kg
[2018-09-13 17:50] VITALS: BP 154/84; PULSE 67
== END ==
LOC: BARWHC3 15:40
PROVIDERS: ATTEND Surgery Plastic and Reconstructive Surgery
DX: K59.00 Constipation, unspecified (principal); R10.30 Lower abdominal pain, unspecified; R11.10 Vomiting, unspecified; R10.813 Right lower quadrant abdominal tenderness
CPT/HCPCS: 99211

== ENCOUNTER → 2018-09-14 | Outpatient (CLI) | payer MEDICARE ==
[2018-09-14 13:27] LABS: HCT 40.5 % (34.0-46.0); HGB 13.1 gm/dL (11.4-16.0); MCH 29.2 pg (25.0-35.0); MCHC 32.3 g/dL (31.0-37.0); MCV 90.3 fL (80.0-100.0); Mean Platelet Volume 8.2; Platelet Count 185 k/uL (150-450); RBC 4.49 m/uL (3.80-5.40); RDW 13.6 % (11.5-15.5); WBC 3.3 k/uL (3.8-10.6)
[2018-09-14 13:37] LABS: ALT 34 U/L (9-52); AST 18 U/L (14-36); Alkaline Phosphatase 71 U/L (38-126); Anion Gap 6 mmol/L; Blood Urea Nitrogen 12 mg/dL (7-17); Calcium 9.4 mg/dL (8.4-10.2); Carbon Dioxide 29 mmol/L (22-30); Chloride 106 mmol/L (98-107); Glucose 84 mg/dL (74-99); Potassium 4.4 mmol/L (3.5-5.1); Sodium 141 mmol/L (137-145); Total Bilirubin 0.6 mg/dL (0.2-1.3); Total Protein 6.8 g/dL (6.3-8.2)
--- NOTE | 2018-09-14 17:09 | XR ---
EXAMINATION TYPE: XR abdomen complete w decub DATE OF EXAM: 09/14/2018 COMPARISON: NONE HISTORY: 48-year-old female generalized abdominal pain TECHNIQUE: Supine, upright, and left side down lateral decubitus views of the abdomen are obtained. FINDINGS: No evidence for free intraperitoneal air. Solitary mildly dilated loop of mid abdominal small bowel at 3.2 cm. No additional dilated bowel. Air and stool is seen throughout the colon extending distally to the rectum with mild to moderate stool burden. Surgical clips in the pelvis. Cholecystectomy clips. Surgical material overlying just below the GE junction. IMPRESSION: 1. Nonobstructive bowel gas pattern. No free air. 2. Solitary mildly dilated small bowel loop in the midabdomen at 3.2 cm. Correlate for regional ileus or enteritis.
--- NOTE | 2018-09-14 18:42 | P.PN ---
Progress Note - Text Progress Note Date: 09/14/18 Lab results reviewed with patient and xray consistent with moderate to severe constipation. Labs ok. Plan for additional studies reviewed
== END ==
LOC: RADXRMAIN 11:50
PROVIDERS: ATTEND Surgery Plastic and Reconstructive Surgery
DX: K59.8 Other specified functional intestinal disorders (principal); E66.01 Morbid (severe) obesity due to excess calories; Z98.84 Bariatric surgery status; Z88.5 Allergy status to narcotic agent
CPT/HCPCS: 36415; 74021; 80053; 85027

== ENCOUNTER → 2018-09-20 | Outpatient (CLI) | payer MEDICARE ==
--- NOTE | 2018-09-20 11:44 | FL ---
EXAMINATION TYPE: FL barium enema DATE OF EXAM: 09/20/2018 COMPARISON: CT abdomen pelvis dated 08/20/2018 HISTORY: History of small bowel obstruction and gastric bypass. Prior hysterectomy and cholecystectom y. Prior panniculectomy. TECHNIQUE: A single contrast barium enema study is performed. 2 minutes and 17 seconds of fluoroscop y time was utilized with 55 images saved. Postevacuation images were also obtained. FINDINGS: [employer] view of the abdomen shows overall non-obstructive bowel gas pattern. Surgical clips are seen within the right upper quadrant and low pelvis. Moderate multilevel degenerative changes of the spine are seen. Surgical sutures are noted within the left upper quadrant. Mild femoral acetabula r arthropathy is seen. Descending colonic diverticulosis is noted. There is delayed distention of the cecum with filling def ect noted near the ileocecal valve. There is also narrowing of the terminal ileum. No evidence of any mass or polyp, obstructing or constricting lesion throughout the colon. IMPRESSION: 1. Filling defect of the near the ileocecal valve that could represent lipomatous hypertrophy of the ileocecal valve or mass. Colonoscopy could further assess this finding. 2. Incomplete mild stricturing at the terminal ileum that could be on the basis of chronic inflammato ry bowel disease. 3. Descending colonic scattered diverticula.
== END | disposition home or self-care (01) ==
LOC: RADFLMAIN 07:43
PROVIDERS: ATTEND Surgery Plastic and Reconstructive Surgery
DX: K56.690 Other partial intestinal obstruction (principal); K57.30 Diverticulosis of large intestine without perforation or abscess without bleeding; R93.3 Abnormal findings on diagnostic imaging of other parts of digestive tract
CPT/HCPCS: 74270

== ENCOUNTER → 2018-09-20 | Outpatient (CLI) | payer MEDICARE ==
--- NOTE | 2018-09-20 17:36 | P.PN ---
Subjective Progress Note Date: 09/20/18 DATE OF SERVICE: 09/20/2018 CHIEF COMPLAINT: Follow-up bowel obstruction HISTORY OF PRESENT ILLNESS: Paz Escalera is a 47-year-old female status post lysis of adhesions, 08/11/18. She still reports severe constipation. She completed her barium enema. She still has pain. At her height of 5 feet 4 inches, her ideal body weight is 144 pounds. Her highest weight is 352 pounds. Today she comes in weighing 138 pounds from 141 pounds, 1 week ago. She has lost 3 pounds in 1 week. She has lost 214 pounds lifetime. Percent excess weight loss is 103 %. Her body mass index is reduced from 60.5 down to 23.7. PHYSICAL EXAM: VITAL SIGNS: 5 feet 4 inches, 138 pounds. Body mass index of 23.7 Vital Signs Temp 98.6 F 09/20/18 17:40 Pulse 88 09/20/18 17:40 Resp BP 167/109 09/20/18 17:40 Pulse Ox ABDOMEN: Tender at right lower quadrant pain. Mild distention. MUSCULOSKELETAL: No clubbing, cyanosis, or edema. GENERAL: Well-developed female in no acute distress. HEENT: No scleral icterus. Extraocular movements grossly intact. NECK: Supple without lymphadenopathy. CHEST: Nonlabored respirations with equal bilateral excursions. CARDIOVASCULAR: Regular rate. Regular rhythm. NEURO: No focal or lateralizing signs. Cranial nerves 2-12 grossly within normal limits. PSYCH: Appropriate affect. Alert and oriented to person, place and time. SKIN: Well perfused. Good skin turgor. STUDIES: Barium enema reviewed with moderated redundant sigmoid colon and questionable mass effect near ileocecal valve and cecum ASSESSMENT: 1. Morbid obesity due to excess calories. 2. Body mass index reduced from 60.5 down to 23.7 3. Status post Aurea-en-Y gastric bypass. 4. Status post massive weight loss of 214 pounds lifetime. 5. Status post lysis of adhesions for small bowel obstruction 6. Constipation 7. Abdominal distention PLAN: 1. Recommend colonoscopy for abnormal barium enema
[2018-09-20 17:42] VITALS: BP 167/109; PULSE 88; TEMP 98.6; BMI 23.6
== END | disposition home or self-care (01) ==
LOC: BARWHC3 15:36
PROVIDERS: ATTEND Surgery Plastic and Reconstructive Surgery
DX: E66.01 Morbid (severe) obesity due to excess calories (principal); K59.00 Constipation, unspecified; R14.0 Abdominal distension (gaseous); Z98.890 Other specified postprocedural states; Z87.19 Personal history of other diseases of the digestive system; Z68.23 Body mass index [BMI] 23.0-23.9, adult; Z98.84 Bariatric surgery status
CPT/HCPCS: 74270; 99211

== ENCOUNTER 2018-09-21 12:47 | Day surgery (SDC) | payer MEDICARE ==
[2018-09-21] MEDS ORDERED: LACTATED RINGERS 1,000 ML IV ONE (13:46)
[2018-09-21 13:47] VITALS: RESP 16; TEMP 98.5
[2018-09-21] MEDS ORDERED: PROPOFOL 10 MG/ML 20 ML VIAL IV ONE (14:57)
[2018-09-21] MEDS ORDERED: LIDOCAINE 1% INJ 10MG/ML (20 ML MDV) ONE (14:57)
--- NOTE | 2018-09-21 14:57 | P.GSHP ---
History of Present Illness H&P Date: 09/21/18 CHIEF COMPLAINT: Abdominal pain with change in bowel habits, abnormal computed tomography scan HISTORY OF PRESENT ILLNESS: The patient is a 48-year-old female who presents with abdominal pain including change in bowel habits and abnormal computed tomography scan. Lower endoscopy was offered for further evaluation and management. PAST MEDICAL HISTORY: Please see list. PAST SURGICAL HISTORY: Please see list. MEDICATIONS: Please see list. ALLERGIES: Please see list. SOCIAL HISTORY: No illicit drug use FAMILY HISTORY: No reports of Crohn disease or ulcerative colitis. REVIEW OF ORGAN SYSTEMS: CONSTITUTIONAL: No reports of fevers or chills. No reports of weight loss despite prior attempts. GI: Has diarrhea including change in bowel habits. PHYSICAL EXAM: VITAL SIGNS: Stable GENERAL: Well-developed pleasant male in no acute distress. HEENT: No scleral icterus. Extraocular movements grossly intact. Moist buccal mucosa. NECK: Supple without lymphadenopathy. CHEST: Unlabored respirations. Equal bilateral excursions. CARDIOVASCULAR: Regular rate and rhythm. Distal 2+ pulses. ABDOMEN: Soft, tender right lower quadrant MUSCULOSKELETAL: No clubbing, cyanosis, or edema. ASSESSMENT: 1. History of abnormal computed tomography scan with change in bowel habits PLAN: 1. Recommend proceeding with a lower endoscopy Past Medical History Past Medical History: Fibromyalgia, Osteoarthritis (OA), Skin Disorder Additional Past Medical History / Comment(s): Sjogrens syndrome, hypoglycemia, Hx. of Asthma. History of Any Multi-Drug Resistant Organisms: MRSA Date of last positivie culture/infection: 2013 MDRO Source:: knee joint 2013 finished rx in December 2015 Past Surgical History: Bariatric Surgery, Cholecystectomy, Hysterectomy, Joint Replacement, Orthopedic Surgery, Tonsillectomy Additional Past Surgical History / Comment(s): 08/16/16 Laparoscopic Aurea-En Y gastric bypass.,EGD. Other surgical hx: Laparoscopy x3. AT 1 WEEKS OLD, REPAIR OF PYLORIC STENOSIS. Left knee arthroscopic x4 with reconstruction x2. Total knee replacement 2008. Right total knee replacement 2009, removal of right knee replacement (MRSA) and spacer inserted. panniculectomy 04-17-18 Past Anesthesia/Blood Transfusion Reactions: Postoperative Nausea & Vomiting ( PONV) Past Psychological History: Anxiety Additional Psychological History / Comment(s): Prozac daily to decrease anxiety. Pt resides with her spouse.She drives. Smoking Status: Never smoker Past Alcohol Use History: None Reported Past Drug Use History: None Reported - Past Family History Mother Family Medical History: Congestive Heart Failure (CHF), Diabetes Mellitus, Hyperlipidemia, Hypertension, Thyroid Disorder Medications and Allergies Home Medications Medication Instructions Recorded Confirmed Type Calcium Carbonate [Calcium] 1,200 mg PO BID 04/03/18 09/21/18 History Multivitamins, Thera [Multivitamin 1 tab PO DAILY 04/03/18 09/21/18 History (formulary)] Thiamine [Vitamin B-1] 100 mg PO DAILY 04/03/18 09/21/18 History Vitamin A 8,000 units PO DAILY 07/31/18 09/21/18 History Docusate [Colace] 100 mg PO DAILY #20 capsule 08/20/18 09/21/18 Rx Metoclopramide [Reglan] 10 mg PO DAILY 08/20/18 09/21/18 History Simethicone 40 mg/0.6 ml Drops 40 mg PO Q6HR PRN #30 ml 08/23/18 09/21/18 Rx [Mylicon Drops] Smooth Move Laxative Tea 240 ml PO BID 09/13/18 09/21/18 History Allergies Allergy/AdvReac Type Severity Reaction Status Date / Time codeine Allergy Intermediate Chest Pain Verified 09/21/18 13:19 morphine AdvReac Intermediate Chest Pain Verified 09/21/18 13:19 Milk Containing Products AdvReac Diarrhea Verified 09/21/18 13:19 [Dairy] environment Allergy Mild Unknown Uncoded 09/21/18 13:19 Surgical - Exam Vital Signs Temp Pulse Resp BP Pulse Ox 98.5 F 77 16 156/80 100 09/21/18 13:45 09/21/18 13:45 09/21/18 13:45 09/21/18 13:45 09/21/18 13:45
--- NOTE | 2018-09-21 15:33 | P.PCN ---
Date of Procedure: 09/21/18 Description of Procedure: PREOPERATIVE DIAGNOSIS: Change in bowel habits Abnormal barium enema Right lower quadrant abdominal pain POSTOPERATIVE DIAGNOSIS: Change in bowel habits Abnormal barium enema Right lower quadrant abdominal pain OPERATION: Colonoscopy to the ileocecal valve and appendiceal orifice. Colonoscopy with cold biopsy forceps SURGEON: Tamanna Pillai MD. ANESTHESIA: MAC. INDICATIONS: The patient is a 48-year-old female who presents with abnormal barium enema including change in bowel habits. Benefits and risks were described and informed consent was obtained. DESCRIPTION OF PROCEDURE: The patient had undergone Gatorade, MiraLAX and Dulcolax prep. She had been brought into the operating room and laid in the left lateral decubitus position. After adequate intravenous sedation, the rectum was examined with 2% lidocaine jelly. No external hemorrhoids were encountered. The rectal tone was within normal limits. No lesions were palpated in the rectal vault. An Olympus colonoscope was advanced until the ileocecal valve and appendiceal orifice was reached. The prep was poor with moderate retained barium enema. Biopsies were obtained of the cecum and ascending colon with cold forceps for colitis. No colonic polyps were found. The colon was desufflated. The patient had tolerated the procedure well. Withdrawal time was over 6 minutes. FINDINGS: No internal hemorrhoids No external prolapsed hemorrhoids. No arteriovenous malformations. No large adenomatous polyps. Moderate retained barium enema limiting view of colonic mucosa RECOMMENDATIONS: Repeat lower endoscopy 2019 Plan - Discharge Summary New Discharge Prescriptions: No Action Multivitamins, Thera [Multivitamin (formulary)] 1 tab PO DAILY Thiamine [Vitamin B-1] 100 mg PO DAILY Calcium Carbonate [Calcium] 1,200 mg PO BID Vitamin A 8,000 units PO DAILY Metoclopramide [Reglan] 10 mg PO DAILY Docusate [Colace] 100 mg PO DAILY #20 capsule Simethicone 40 mg/0.6 ml Drops [Mylicon Drops] 40 mg PO Q6HR PRN #30 ml PRN Reason: Abdominal Distention Smooth Move Laxative Tea 240 ml PO BID Discharge Medication List Calcium Carbonate [Calcium] 1,200 mg PO BID 04/03/18 [History] Multivitamins, Thera [Multivitamin (formulary)] 1 tab PO DAILY 04/03/18 [History ] Thiamine [Vitamin B-1] 100 mg PO DAILY 04/03/18 [History] Vitamin A 8,000 units PO DAILY 07/31/18 [History] Docusate [Colace] 100 mg PO DAILY #20 capsule 08/20/18 [Rx] Metoclopramide [Reglan] 10 mg PO DAILY 08/20/18 [History] Simethicone 40 mg/0.6 ml Drops [Mylicon Drops] 40 mg PO Q6HR PRN #30 ml [Rx] Smooth Move Laxative Tea 240 ml PO BID 09/13/18 [History]
[2018-09-21 15:53] VITALS: BP 124/81; PULSE 78
== END 2018-09-21 16:29 | disposition home or self-care (01) ==
LOC: ORWHC2ENDO 12:47
PROVIDERS: ATTEND Surgery Plastic and Reconstructive Surgery
DX: K52.9 Noninfective gastroenteritis and colitis, unspecified (principal); M79.7 Fibromyalgia; M19.90 Unspecified osteoarthritis, unspecified site; J45.909 Unspecified asthma, uncomplicated; M35.00 Sjogren syndrome, unspecified; F41.9 Anxiety disorder, unspecified; Z98.84 Bariatric surgery status; Z86.14 Personal history of Methicillin resistant Staphylococcus aureus infection; Z91.011 Allergy to milk products; Z88.5 Allergy status to narcotic agent; Z96.651 Presence of right artificial knee joint
CPT/HCPCS: 88305; 45380; J2001; J2704

== ENCOUNTER → 2018-10-18 | Outpatient (CLI) | payer MEDICARE ==
[2018-10-18 13:06] VITALS: BP 156/84; PULSE 66; RESP 16; TEMP 98.3; BMI 24.5
--- NOTE | 2018-10-18 14:05 | P.PN ---
Subjective Progress Note Date: 10/18/18 HPI: She has terrible constipation. She has tried multiple medications for bowel movements without improvement. She gets easily bloated. She is on Linzess. ABDOMEN: Soft. Minimal distention. PLAN: 1. Check magnesium since last blood work was 1 year 2. Recommend Magnesium 400 mg. Objective - Vital Signs Vital signs: Vital Signs Temp 98.3 F 10/18/18 13:01 Pulse 66 10/18/18 13:01 Resp 16 10/18/18 13:01 BP 156/84 10/18/18 13:01 Pulse Ox 98 10/18/18 13:01 Intake & Output 10/17/18 10/18/18 10/18/18 18:59 06:59 18:59 Weight 64.909 kg
[2018-10-18 14:48] LABS: HGB 12.9 gm/dL (11.4-16.0); MCH 29.4 pg (25.0-35.0); MCHC 32.4 g/dL (31.0-37.0); MCV 90.8 fL (80.0-100.0); Mean Platelet Volume 8.4; Platelet Count 191 k/uL (150-450); RDW 13.5 % (11.5-15.5); WBC 3.5 k/uL (3.8-10.6)
[2018-10-18 14:54] LABS: Partial Thromboplastin Time 23.8 sec (22.0-30.0); Prothrombin Time 10.5 sec (9.0-12.0)
[2018-10-18 21:22] LABS: Parathyroid Hormone Intact 114.9 pg/mL (14.0-72.0)
[2018-10-18 21:37] LABS: Albumin 4.2 g/dL (3.80-4.90); Anion Gap 8.7 mmol/L (4.00-12.00); Carbon Dioxide 30.3 mmol/L (21.6-31.8); Globulin 2.1 g/dL (1.6-3.3); Iron Saturation 21.77 (12.00-45.00); LDL Cholesterol,Calculated 77.2 mg/dL (0.0-131.0); Magnesium 2.2 mg/dL (1.5-2.4); Phosphorus 4.1 mg/dL (2.4-5.1); Potassium 4.1 mmol/L (3.5-5.5); Total Bilirubin 0.4 mg/dL (0.2-1.2); Total Protein 6.3 g/dL (6.2-8.2); VLDL Calculation 15.8 mg/dL (5.00-40.00)
[2018-10-18 21:44] LABS: Vitamin D 25 Hydroxy 27.1 ng/mL (30.0-100.0)
[2018-10-18 22:53] LABS: Folate, Serum 16.7 ng/mL
[2018-10-18 23:52] LABS: Hemoglobin A1C 4.8 % (4.0-6.0)
[2018-10-19 12:45] LABS: Zinc, Serum 70 ug/dL (60-130)
[2018-10-20 09:35] LABS: Vitamin A 53 ug/dL (38-106)
[2018-10-20 09:43] LABS: Vitamin B1 90 ug/L (38-122)
== END ==
LOC: BARWHC3 12:50
PROVIDERS: ATTEND Surgery Plastic and Reconstructive Surgery
DX: K59.00 Constipation, unspecified (principal); R14.0 Abdominal distension (gaseous); E66.01 Morbid (severe) obesity due to excess calories; E21.1 Secondary hyperparathyroidism, not elsewhere classified; D50.9 Iron deficiency anemia, unspecified; E55.9 Vitamin D deficiency, unspecified; K74.1 Hepatic sclerosis; N19 Unspecified kidney failure; E44.0 Moderate protein-calorie malnutrition; K50.90 Crohn's disease, unspecified, without complications; Z48.815 Encounter for surgical aftercare following surgery on the digestive system; Z98.84 Bariatric surgery status; Z68.24 Body mass index [BMI] 24.0-24.9, adult
CPT/HCPCS: 84255; 84134; 84425; 80061; 80053; 82607; 82728; 82525; 82746; 83540; 83550; 83735; 84100; 84443; 84590; 84630; 85027; 85610; 85730; 82306; 83970; 83036; G0463; 99211

== ENCOUNTER → 2019-04-09 | Outpatient (CLI) | payer MEDICARE ==
--- NOTE | 2019-04-09 11:23 | MM ---
Reason for exam: screening (asymptomatic). Last mammogram was performed 1 year and 2 months ago. History: Patient is postmenopausal and is nulliparous. Physical Findings: A clinical breast exam by your physician is recommended on an annual basis and results should be correlated with mammographic findings. MG 3D Screening Mammo W/Cad Bilateral CC and MLO view(s) were taken. Prior study comparison: February 03, 2018, bilateral MG 3d screening mammo w/cad. The breast tissue is heterogeneously dense. This may lower the sensitivity of mammography. No suspicious abnormality. No significant changes when compared with prior studies. ASSESSMENT: Negative, BI-RAD 1 RECOMMENDATION: Routine screening mammogram of both breasts in 1 year.
== END | disposition home or self-care (01) ==
LOC: RADMAMWWP 07:52
PROVIDERS: ATTEND Internal Medicine
DX: Z12.31 Encounter for screening mammogram for malignant neoplasm of breast (principal)
CPT/HCPCS: 77063; 77067

== ENCOUNTER → 2019-07-19 | Outpatient (CLI) | payer MEDICARE | END | disposition home or self-care (01) | LOC: LABWHC1 10:03 | PROVIDERS: ATTEND Surgery Plastic and Reconstructive Surgery | DX: Z53.9 Procedure and treatment not carried out, unspecified reason (principal) ==

== ENCOUNTER → 2019-07-19 | Outpatient (CLI) | payer MEDICARE ==
[2019-07-19 09:21] VITALS: BP 157/78; PULSE 75; TEMP 98.4; BMI 26.6
--- NOTE | 2019-07-19 09:48 | P.PN ---
Subjective Progress Note Date: 07/19/19 HPI: She reports needing a knee replacement now. This is her 3rd. She has gained weight with Linzess of 10 pounds. NO GERD. No further hypoglycemia with Lactulose. She has stomach cramps with medications. ABDOMEN: Mild bulging of the right lower. ASSESSMENT: 1. Morbid obesity PLAN: 1. 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 Will need to have GI prophylaxis. 3. She has Sjogren's disease which affects her bowels. 4. Omeprazole 5. Neurontin for pain Objective - Vital Signs Vital signs: Vital Signs Temp 98.4 F 07/19/19 09:16 Pulse 75 07/19/19 09:16 Resp BP 157/78 07/19/19 09:16 Pulse Ox Intake & Output 07/18/19 07/19/19 07/19/19 18:59 06:59 18:59 Weight 70.307 kg
[2019-07-19 17:40] LABS: Iron Saturation 22.04 (12.00-45.00)
[2019-07-19 17:49] LABS: Vitamin D 25 Hydroxy 28.1 ng/mL (30.0-100.0)
[2019-07-19 17:50] LABS: Ferritin 23.9 ng/mL (10.0-291.0)
[2019-07-19 18:08] LABS: Folate, Serum 16.5 ng/mL
[2019-07-20 14:22] LABS: Zinc, Serum 74 ug/dL (60-130)
[2019-07-21 16:32] LABS: Vit B1(Thiamine) 69 ug/L (38-122)
[2019-07-23 06:48] LABS: Vitamin A 48 ug/dL (38-106)
[2019-07-26 17:51] LABS: Selenium 137 mcg/L (63-160)
== END | disposition home or self-care (01) ==
LOC: BARWHC3 08:48
PROVIDERS: ATTEND Surgery Plastic and Reconstructive Surgery
DX: E66.01 Morbid (severe) obesity due to excess calories (principal); M35.00 Sjogren syndrome, unspecified; Z68.26 Body mass index [BMI] 26.0-26.9, adult
CPT/HCPCS: 84255; 84425; 82607; 82728; 82525; 82746; 83540; 83550; 84443; 84590; 84630; 82306; 83970; 97803; 36415; G0463; 99211

== ENCOUNTER → 2019-12-07 | Outpatient (CLI) | payer MEDICARE ==
--- NOTE | 2019-12-07 12:04 | CT ---
EXAMINATION TYPE: CT abdomen pelvis wo con DATE OF EXAM: 12/07/2019 COMPARISON: 08/20/2018 HISTORY: 49-year-old female Abdominal pain, constipation CT DLP: 399.8 mGycm. Automated exposure control for dose reduction was used. TECHNIQUE: Contiguous axial scanning of the abdomen and pelvis without IV contrast. Coronal and sagit oswald reconstructions performed. FINDINGS: LUNG BASES: Tiny hiatal hernia. Post surgical change upper abdomen relating to a Aurea-en-Y gastric by pass. The lower anastomosis is mildly patulous, likely on a chronic post surgical basis. It is locate d up in the anterior abdomen, anterior to the transverse colon. LIVER/GB: Limited noncontrast assessment. No definite abnormality. Gallbladder is surgically absent. PANCREAS: No significant abnormality is seen. SPLEEN: Tiny hilar splenule. No significant abnormality is seen. ADRENALS: No significant abnormality is seen. KIDNEYS: 3 mm nonobstructive right renal calculus. No hydronephrosis on either side. LYMPH NODES: Scattered nonenlarged mesenteric lymph nodes throughout. No retroperitoneal lymphadenopa thy. Lack of IV contrast limits assessment. BOWEL: Oral contrast has made its way to the cecum. Aside from the patulous lower anastomosis relati ng to the Aurea-en-Y gastric bypass, no dilated small bowel. Left-sided colonic diverticulosis. No per icolonic inflammatory change seen. Mural-based thickening involving the cecum, refer to coronal image 29 and 34 and axial image 63. Moderate stool in the right side of the abdomen. Normal appendix. PELVIS: Uterus surgically absent. Bladder urine distended. Pelvic phleboliths. No abnormal fluid brown ection in the pelvis or pelvic lymphadenopathy seen. Bones: Mild degenerative changes at the hips. Facet arthropathy and degenerative disc disease mid to lower lumbar spine. Reversal of the normal cervical lordosis. IMPRESSION: 1. Status post Aurea-en-Y gastric bypass. Tiny hiatal hernia is present. Incidentally, the lower anas tomosis is located high up in the anterior abdomen, in front of the transverse colon. No obstructive changes. 2. Moderate stool in the right side of the colon. Left-sided colonic diverticulosis without acute di verticulitis. However, there is mural based soft tissue thickening involving the cecum (coronal image s 29 and 34). Nonspecific colitis, stool encrustation, and neoplasm are differential considerations. Direct visualization recommended if screening colonoscopy has not started. 3. 3 mm nonobstructive right renal calculus.
== END ==
LOC: RADCTMAIN 09:41
PROVIDERS: ATTEND Nurse Practitioner Adult Health
DX: K44.9 Diaphragmatic hernia without obstruction or gangrene (principal); K57.30 Diverticulosis of large intestine without perforation or abscess without bleeding; N20.0 Calculus of kidney; Z98.84 Bariatric surgery status; K59.00 Constipation, unspecified
CPT/HCPCS: 74176

== ENCOUNTER → 2019-12-19 | Outpatient (CLI) | payer MEDICARE ==
[2019-12-19 13:57] VITALS: BP 148/91; PULSE 92; RESP 16; TEMP 98.1; BMI 26.9
--- NOTE | 2019-12-19 14:56 | P.PN ---
Subjective Progress Note Date: 12/19/19 DATE OF SERVICE: 12/19/2019 CHIEF COMPLAINT: Chronic constipation HISTORY OF PRESENT ILLNESS: Paz Escalera is a 49-year-old female with severe chronic constipation. She is status post gastric bypass Aurea-en-Y gastric bypass 08/16/2016. She is 3 years out. She comes in with worsening abdominal pain and severe constipation now more than 2 to 3 weeks at a time. She comes in with chronic constipation. She has sigmoid diverticulosis. She reports gas bloat after eating. She is not eating much. At her height of 5 feet 4 inches, her ideal body weight is 144 pounds. Her highest weight is 352 pounds. Today she comes in weighing 157 pounds from 155 pounds, 3 months ago. She has gained 2 pounds in 5 months. She has lost 195 pounds lifetime. Percent excess weight loss is 94 %. Her body mass index is reduced from 60.5 down to 26.9. PAST MEDICAL HISTORY: 1. Morbid obesity, BMI 60.5, initial 2. Asthma. 3. Diabetes type 2, resolved. 4. Fibromyalgia. 5. Hyperlipidemia. 6. Hypertension, resolved. 7. Osteoarthritis. 8. Sjogren's disease. 9. Obstructive sleep apnea, resolved. 10. Chronic tachycardia, resolved. 11. Gastroesophageal reflux disease, resolved. 12. Irritable bowel syndrome. 13. Hypokalemia. 14. Peripheral venous insufficiency. 15. Lupus. 16. History of MRSA. 17. Anxiety. 18. Depression. PAST SURGICAL HISTORY: 1. Bilateral knee replacement. 2. Right knee replacement with sequelae of MRSA infection. 3. Cholecystectomy. 4. Hysterectomy. 5. Tonsillectomy. 6. Left knee arthroscopy. 7. Upper endoscopy. 8. Colonoscopy. 9. Laparoscopic Aurea-en-Y gastric bypass. 10. Panniculectomy MEDICATIONS: 1. Vitamin A. 2. Calcium carbonate. 3. Multivitamins. 4. Thiamine. ALLERGIES: Milk and environmental allergies. SOCIAL HISTORY: Lifelong nontobacco user. No current alcohol abuse. FAMILY HISTORY: Denies esophageal or stomach cancer. Has obesity in her family as well as diabetes. Family history of thyroid cancer. REVIEW OF SYSTEMS: CONSTITUTIONAL: At her height of 5 feet 4 inches, her ideal body weight is 144 pounds. Her highest weight is 352 pounds. Her body mass index is reduced from 60.5. CARDIOVASCULAR: She is off all blood pressure medications. GASTROINTESTINAL: No reports of gastroesophageal reflux disease or dysphagia. No reports of dumping syndrome. She has constipation ENDOCRINE: Resolved diabetes type 2. No reports of thyroid disorder. RESPIRATORY: Resolved obstructive sleep apnea. No pneumonia. MUSCULOSKELETAL: Improved osteoarthritis of the lower back, including bilateral knees and hips. HEENT: She wears glasses. No reports of dysphagia. No reports of troubles with hearing. NEURO: No recent stroke or seizure disorder. PSYCH: History of depression without suicidal ideation. HEMATOLOGIC: No recent DVTs or pulmonary emboli in herself or family. SKIN: Reports chronic skin infections of panniculitis. PHYSICAL EXAM: VITAL SIGNS: 5 feet 4 inches, 157 pounds. Body mass index of 26.9 Vital Signs Temp 98.1 F 12/19/19 13:55 Pulse 92 12/19/19 13:55 Resp 16 12/19/19 13:55 BP 148/91 12/19/19 13:55 Pulse Ox ABDOMEN: Soft, mild distention. No peritonitis. No palpable hernia MUSCULOSKELETAL: No clubbing, cyanosis, or edema. GENERAL: Well-developed female in no acute distress. HEENT: No scleral icterus. Extraocular movements grossly intact. NECK: Supple without lymphadenopathy. CHEST: Nonlabored respirations with equal bilateral excursions. CARDIOVASCULAR: Regular rate. Regular rhythm. NEURO: No focal or lateralizing signs. Cranial nerves 2-12 grossly within normal limits. PSYCH: Appropriate affect. Alert and oriented to person, place and time. SKIN: Well perfused. Good skin turgor. STUDIES: CT of the abdomen and pelvis independently reviewed with highly redundant sigmoid colon. No bowel obstruction. No free air. Moderate stool along ascending colon. RADIOLOGY: Right kidney stone identified with sigmoid diverticulosis and hiatal hernia identified. ASSESSMENT: 1. Morbid obesity due to excess calories. 2. Body mass index reduced from 60.5 down to 26.9 3. Status post Aurea-en-Y gastric bypass. 4. Chronic constipation 5. Sjogren's disease 6. Gastroesophageal reflux disease. 7. Sigmoid diverticulosis 8. Kidney stones 9. Sjogren's PLAN: 1. Her clinical presentation including severe constipation is suspicious for colonic inertia. 2. Needs defecography for evaluation of colonic inertia. I personally contacted the hospital radiology where this study is not available the [facility] 3. Recommend referral to colorectal surgeon, Dr Cole for further evaluation for colonic inertia. Objective - Vital Signs Vital signs: Vital Signs Temp 98.1 F 12/19/19 13:55 Pulse 92 12/19/19 13:55 Resp 16 12/19/19 13:55 BP 148/91 12/19/19 13:55 Pulse Ox Intake & Output 12/18/19 12/19/19 12/19/19 18:59 06:59 18:59 Weight 71.214 kg
== END | disposition home or self-care (01) ==
LOC: BARWHC3 13:36
PROVIDERS: ATTEND Surgery Plastic and Reconstructive Surgery
DX: Z48.815 Encounter for surgical aftercare following surgery on the digestive system (principal); E66.01 Morbid (severe) obesity due to excess calories; K59.09 Other constipation; M35.00 Sjogren syndrome, unspecified; K21.9 Gastro-esophageal reflux disease without esophagitis; K57.30 Diverticulosis of large intestine without perforation or abscess without bleeding; N20.0 Calculus of kidney; Z68.26 Body mass index [BMI] 26.0-26.9, adult; Z83.49 Family history of other endocrine, nutritional and metabolic diseases; Z98.84 Bariatric surgery status; Z98.890 Other specified postprocedural states; Z90.49 Acquired absence of other specified parts of digestive tract; Z79.899 Other long term (current) drug therapy; T78.49XA Other allergy, initial encounter; Z91.011 Allergy to milk products
CPT/HCPCS: 99211

== ENCOUNTER → 2021-03-28 | Outpatient (CLI) | payer MEDICARE ==
[2021-03-28 09:07] LABS: Partial Thromboplastin Time 22.5 sec (22.0-30.0); Prothrombin Time 10.5 sec (9.0-12.0)
[2021-03-28 12:11] LABS: HCT 35.3 % (37.2-46.3); HGB 11.1 g/dL (12.0-15.0); MCH 27.1 pg (27.0-32.0); MCHC 31.4 g/dL (32.0-37.0); MCV 86.3 fL (80.0-97.0); Mean Platelet Volume 12.9 fL (9.5-12.2); Platelet Count 225 X 10*3/uL (140-440); RBC 4.09 X 10*6/uL (4.10-5.20); RDW 13.9 % (11.5-14.5); WBC 2.79 X 10*3/uL (4.50-10.00)
[2021-03-28 13:26] LABS: % Iron Saturation 11.3 (12.00-45.00); African American GFR (CKD) 116.3 (60.0-200.0); Albumin 4.2 g/dL (3.80-4.90); Albumin/Globulin Ratio 1.75 (1.60-3.17); BUN/Creat Ratio 17.14 Ratio (12.00-20.00); Calcium 8.9 mg/dL (8.7-10.3); Chol/HDL Ratio 2.35; Ferritin 6.9 ng/mL (10.0-291.0); Folate, Serum 10.1 ng/mL; Globulin 2.4 g/dL (1.6-3.3); Non-African American GFR(CKD) 100.3 (60.0-200.0); Phosphorus 4.3 mg/dL (2.4-5.1); Potassium 4.3 mmol/L (3.5-5.5); Total Bilirubin 0.5 mg/dL (0.3-1.2); Total Protein 6.6 g/dL (6.2-8.2)
[2021-03-28 16:23] LABS: Hemoglobin A1C 5.4 % (4.0-6.0)
== END | disposition home or self-care (01) ==
LOC: LABWHC1 08:12
PROVIDERS: ATTEND Surgery Plastic and Reconstructive Surgery
DX: E66.01 Morbid (severe) obesity due to excess calories (principal); E89.1 Postprocedural hypoinsulinemia; D50.8 Other iron deficiency anemias; E55.9 Vitamin D deficiency, unspecified; K74.1 Hepatic sclerosis; N19 Unspecified kidney failure; K50.90 Crohn's disease, unspecified, without complications; K90.89 Other intestinal malabsorption
CPT/HCPCS: 36415; 80053; 80061; 82306; 82525; 82607; 82728; 82746; 83036; 83540; 83550; 83735; 83970; 84100; 84134; 84255; 84425; 84443; 84590; 84630; 85027; 85610; 85730

== ENCOUNTER → 2021-07-02 | Outpatient (CLI) | payer MEDICARE ==
[2021-07-02 10:22] LABS: HCT 39.5 % (34.0-46.0); HGB 13.3 gm/dL (11.4-16.0); MCHC 33.8 g/dL (31.0-37.0); MCV 88.8 fL (80.0-100.0); Mean Platelet Volume 9.8; Platelet Count 194 k/uL (150-450); RBC 4.45 m/uL (3.80-5.40); RDW 15.9 % (11.5-15.5); WBC 3.4 k/uL (3.8-10.6)
[2021-07-02 10:57] LABS: ALT 16 U/L (4-34); AST 20 U/L (14-36); African American GFR (CKD) >90 (>60 ml/min/1.73 sqM); Albumin 3.7 g/dL (3.5-5.0); Alkaline Phosphatase 96 U/L (38-126); Anion Gap 6 mmol/L; Blood Urea Nitrogen 14 mg/dL (7-17); Carbon Dioxide 28 mmol/L (22-30); Chloride 106 mmol/L (98-107); Glucose 88 mg/dL (74-99); Non-African American GFR(CKD) >90 (>60 ml/min/1.73 sqM); Potassium 4.3 mmol/L (3.5-5.1); Sodium 140 mmol/L (137-145); Total Bilirubin 0.4 mg/dL (0.2-1.3); Total Protein 6.4 g/dL (6.3-8.2)
== END | disposition home or self-care (01) ==
LOC: LABPAT 09:10
PROVIDERS: ATTEND Surgery Plastic and Reconstructive Surgery
DX: Z01.812 Encounter for preprocedural laboratory examination (principal)
CPT/HCPCS: 36415; 80053; 85027; 86850; 86900; 86901

== ENCOUNTER 2021-07-08 09:48 | Inpatient (IN) | payer MEDICARE ==
[2021-07-03 15:33] VITALS: BMI 28.3
[~2021-07-08 09:48] MED LIST changes: +LIDOCAINE 1% (10MG/ML) FOR IV START INTRADERMA PRN; -SODIUM CHLORIDE 0.9% 1,000 ML IV SCH; -SODIUM CHLORIDE 0.9% 500 ML 500 ML in EMPTY BAG 1 BAG IV PRN
[2021-07-08] MEDS: LACTATED RINGERS 1,000 ML IV SCH ×2 (10:15→23:24)
[2021-07-08 10:23] LABS: Glucose,Whole Blood 80 mg/dL (75-99)
[2021-07-08] MEDS ORDERED: LIDOCAINE 1% INJ 10MG/ML (20 ML MDV) ONE (10:24)
[2021-07-08] MEDS ORDERED: PROPOFOL 10 MG/ML 20 ML VIAL IV ONE (10:24)
--- NOTE | 2021-07-08 11:17 | P.GSHP ---
History of Present Illness H&P Date: 07/08/21 CHIEF COMPLAINT: History of sigmoid volvulus HISTORY OF PRESENT ILLNESS: The patient is a 51-year-old female with increasing abdominal pain including distention and intermittent large bowel obstruction due to sigmoid volvulus. She had multiple diagnostic studies and presents for colonic decompression of sigmoid volvulus with resection presentation. PAST MEDICAL HISTORY: Please see list. PAST SURGICAL HISTORY: Please see list. MEDICATIONS: Please see list. ALLERGIES: Please see list. SOCIAL HISTORY: No illicit drug use FAMILY HISTORY: No reports of Crohn disease or ulcerative colitis. REVIEW OF ORGAN SYSTEMS: CONSTITUTIONAL: Denies any fever or chills. HEENT: Denies any trouble with vision or nosebleeds. No difficulty swallowing. LYMPHATIC: The patient denies any lumps and bumps around the neck. ENDOCRINE: Denies any thyroid disorders. RESPIRATORY: Denies pneumonia. Denies any troubles with breathing or dyspnea on exertion. CARDIOVASCULAR: Denies any chest pain, palpitations, or recent heart attacks. GASTROINTESTINAL: Has chronic constipation GENITOURINARY: Has increased urinary frequency. MUSCULOSKELETAL: Has back pain, stiffness, joint arthritis. NEUROLOGIC: Denies any numbness or tingling along the distal extremities. No seizure disorders or headaches. PSYCHIATRIC: Denies suidical ideation. Has depression. HEMATOLOGIC: Denies any abnormal bleeding or bruising. PHYSICAL EXAM: VITAL SIGNS: Stable GENERAL: Well-developed pleasant in no acute distress. HEENT: No scleral icterus. Extraocular movements grossly intact. Moist buccal mucosa. He is hard of hearing. NECK: Supple without lymphadenopathy. CHEST: Unlabored respirations. Equal bilateral excursions. CARDIOVASCULAR: Regular rate and rhythm. Distal 2+ pulses. ABDOMEN: Soft, nontender, nondistended. MUSCULOSKELETAL: No clubbing, cyanosis, or edema. NERUO: Cranial nerves 2-12 grossly intact. PSYCH: Alert and oriented to person place and time. ASSESSMENT: 1. Sigmoid volvulus PLAN: 1. Benefits and risks of surgical robotic sigmoid resection was reviewed in detail. Robotic-assisted approach was also described. 2. Enhanced colon recovery program. 3. DVT prophylaxis. 4. Antibiotic prophylaxis. 5. Inpatient hospitalization greater than 2 nights. 6. Colonic decompression advised. Past Medical History Past Medical History: Asthma, Fibromyalgia, Osteoarthritis (OA), Skin Disorder Additional Past Medical History / Comment(s): Sjogrens syndrome. hypoglycemia- has injectable med for sugar less than 50 History of Any Multi-Drug Resistant Organisms: MRSA Date of last positivie culture/infection: 2013 MDRO Source:: knee joint 2013 finished rx in December 2015 Past Surgical History: Bariatric Surgery, Cholecystectomy, Hysterectomy, Joint Replacement, Orthopedic Surgery, Tonsillectomy Additional Past Surgical History / Comment(s): 08/16/16 Laparoscopic Aurea-En Y gastric bypass. Laparoscopy x3. AT 1 WEEKS OLD, REPAIR OF PYLORIC STENOSIS. Left knee arthroscopic x4 with reconstruction x2, Total knee replacement 2008 Right total knee replacement 2009, removal of right knee replacement (MRSA) and spacer inserted. panniculectomy 04-17-18 Past Anesthesia/Blood Transfusion Reactions: Postoperative Nausea & Vomiting (PONV) Past Psychological History: Anxiety Smoking Status: Never smoker Past Alcohol Use History: None Reported Past Drug Use History: None Reported - Past Family History Mother Family Medical History: Congestive Heart Failure (CHF), Diabetes Mellitus, Hyperlipidemia, Hypertension, Thyroid Disorder Medications and Allergies Home Medications Medication Instructions Recorded Confirmed Type Multivitamins, Thera [Multivitamin 1 tab PO DAILY 04/03/18 07/03/21 History (formulary)] Ergocalciferol [Vitamin D2 (1250 1,250 mcg PO WEEKLY #20 cap 04/02/21 07/03/21 Rx Mcg = 07480 Iu)] Calcium Carbonate [Calcium] 600 mg PO DAILY 07/03/21 07/03/21 History Nf-Vitamin A 1 tab PO DAILY 07/03/21 07/03/21 History Omeprazole 40 mg PO DAILY PRN 07/03/21 07/03/21 History Sertraline HCl [Zoloft] 75 mg PO DAILY 07/03/21 07/03/21 History Allergies Allergy/AdvReac Type Severity Reaction Status Date / Time codeine Allergy Intermediate Chest Pain Verified 07/08/21 10:09 morphine Allergy Intermediate Chest Pain Verified 07/08/21 10:09 Milk Containing Products AdvReac Diarrhea Verified 07/08/21 10:09 [Dairy] Surgical - Exam Vital Signs Temp Pulse Resp BP Pulse Ox 97.5 F L 67 16 178/80 100 07/08/21 10:12 07/08/21 10:12 07/08/21 10:12 07/08/21 10:12 07/08/21 10:12
--- NOTE | 2021-07-08 11:25 | P.PCN ---
Date of Procedure: 07/08/21 Description of Procedure: PREOPERATIVE DIAGNOSIS: Sigmoid volvulus POSTOPERATIVE DIAGNOSIS: Sigmoid volvulus OPERATION: Colonoscopy to the sigmoid colon. SURGEON: Tamanna Pillai MD. ANESTHESIA: MAC. INDICATIONS: The patient is a 51-year-old female who presents with abdominal pain and distention including intermittent large bowel junction due to sigmoid volvulus. Colonoscopy was offered for decompression. Benefits and risks were described and informed consent was obtained. DESCRIPTION OF PROCEDURE: The patient had undergone Sutab prep. She had been brought into the operating room and laid in the left lateral decubitus position. After adequate intravenous sedation, the rectum was examined with 2% lidocaine jelly. No external hemorrhoids were encountered. The rectal tone was loose. No lesions were palpated in the rectal vault. An Olympus colonoscope was advanced along the rectum to a very tortuous sigmoid colon to 50 cm from the anal verge, descending colon. An active volvulus was confirmed. The colon mucosa was unremarkable. As the patient posed high risk for perforation with persistence of the procedure, the procedure was discontinued. The colon was desufflated. The patient had tolerated the procedure well. Withdrawal time was over 6 minutes. FINDINGS: [place] preparation quality scale 2 1-5) Tortuous sigmoid colon with stricture preventing further advancement of the scope. No external prolapsed hemorrhoids. Scope advanced to sigmoid colon at 50 cm, descending colon No arteriovenous malformations. No adenomatous polyps. No focal colitis. RECOMMENDATIONS: Recommend proceed with sigmoid colectomy
[2021-07-08 11:56] LABS: Basophils % (A) 1 %; Eosinophils % (A) 2 %; HCT 38.2 % (34.0-46.0); HGB 12.6 gm/dL (11.4-16.0); Lymphocytes % (A) 34 %; MCH 29.8 pg (25.0-35.0); MCHC 32.9 g/dL (31.0-37.0); MCV 90.6 fL (80.0-100.0); Mean Platelet Volume 9.9; Monocytes # (A) 0.2 k/uL (0-1.0); Monocytes % (A) 5 %; Neutrophils # (A) 1.6 k/uL (1.3-7.7); Neutrophils % (A) 57 %; Platelet Count 154 k/uL (150-450); RBC 4.22 m/uL (3.80-5.40); RDW 15.3 % (11.5-15.5); WBC 2.8 k/uL (3.8-10.6)
[2021-07-08 12:35] LABS: ALT 14 U/L (4-34); AST 20 U/L (14-36); African American GFR (CKD) >90 (>60 ml/min/1.73 sqM); Albumin 3.5 g/dL (3.5-5.0); Alkaline Phosphatase 91 U/L (38-126); Anion Gap 8 mmol/L; Blood Urea Nitrogen 9 mg/dL (7-17); Calcium 8.9 mg/dL (8.4-10.2); Carbon Dioxide 26 mmol/L (22-30); Chloride 106 mmol/L (98-107); Glucose 91 mg/dL (74-99); Non-African American GFR(CKD) >90 (>60 ml/min/1.73 sqM); Potassium 4.1 mmol/L (3.5-5.1); Sodium 140 mmol/L (137-145); Total Bilirubin 0.4 mg/dL (0.2-1.3); Total Protein 6.1 g/dL (6.3-8.2)
[2021-07-08] MEDS: NEOMYCIN 500 MG TAB PO SCH ×3 (13:41→23:22)
[2021-07-08] MEDS: metroNIDAZOLE 500 MG TAB PO SCH ×3 (13:41→23:22)
[2021-07-08 17:11] LABS: Glucose,Whole Blood 76 mg/dL (75-99)
[2021-07-09 00:59] LABS: Glucose,Whole Blood 74 mg/dL (75-99)
[2021-07-09] MEDS ORDERED: metroNIDAZOLE-NS PMX 500 MG in SALINE 1 100ML.BAG IVPB PRN (05:00)
[2021-07-09 06:19] LABS: Glucose,Whole Blood 145 mg/dL (75-99)
[2021-07-09 06:51] LABS: Glucose,Whole Blood 210 mg/dL (75-99)
[2021-07-09] MEDS ORDERED: ACETAMINOPHEN TAB 500 MG TAB PO PRN (07:00)
[2021-07-09] MEDS ORDERED: Antibiotics per Pharmacy 1 EACH MISC MISCELLANE PRN (07:00)
[2021-07-09] MEDS ORDERED: ALVIMOPAN 12 MG CAPSULE PO PRN (07:00)
[2021-07-09] MEDS ORDERED: HEPARIN SODIUM,PORCINE/PF 5,000 UNIT/0.5 ML SYRINGE SQ PRN (07:00)
[2021-07-09 07:44] LABS: INR 1.1 (<1.2); Partial Thromboplastin Time 23.8 sec (22.0-30.0); Prothrombin Time 11.2 sec (9.0-12.0)
[2021-07-09] MEDS ORDERED: IV FLUID CONTINUATION 800 ML IV ONE (08:52)
[2021-07-09] MEDS ORDERED: ONDANSETRON 4 MG/2 ML VIAL ONE (09:01)
[2021-07-09] MEDS ORDERED: MIDAZOLAM 2 MG/2 ML VIAL IVP ONE (09:28)
[2021-07-09] MEDS ORDERED: DEXAMETHASONE SOD PHOSPHATE 4 MG/ML 1 ML VIAL IVP ONE (09:46)
[2021-07-09] MEDS ORDERED: ONDANSETRON 4 MG/2 ML VIAL IVP ONE (09:46)
--- NOTE | 2021-07-09 09:58 | P.ANPRN ---
Procedure Note - Anesthesia - Nerve Block Performed Bilateral Erector Spinae Single Time Out Performed: Yes Date of Procedure: 07/09/21 Procedure Start Time: : Procedure Stop Time: : Location of Patient: PreOp Indication: Acute Post-Operative Pain, Requested by Surgeon Sedation Type: Sedate with meaningful contact maintained Preparation: Sterile Prep, Sterile Dressing Position: Prone Catheter: None Needle Types: On-Q Needle Gauge: 20, 21 Ultrasound used to visualize needle placement: Yes Ultrasound used to observe medication spread: Yes Injectate: 0.5% Ropivacaine (see comment for volume) (20 ml per side + decadron 4 mg) Blood Aspirated: No Pain Paresthesia on Injection Noted: No Resistance on Injection: Normal Image Stored and Saved: Yes Events: Uneventful and Well Tolerated
[2021-07-09] MEDS ORDERED: LACTATED RINGERS 1,000 ML IV ONE ×2 (10:33→12:40)
[2021-07-09] MEDS: SERTRALINE 25 MG TAB PO SCH (10:45)
[2021-07-09] MEDS ORDERED: GLYCOPYRROLATE 0.2 MG/ML 2 ML VIAL ONE (11:31)
[2021-07-09] MEDS ORDERED: PROPOFOL 10 MG/ML 20 ML VIAL IV ONE (11:31)
[2021-07-09] MEDS ORDERED: MIDAZOLAM 2 MG/2 ML VIAL ONE (11:31)
[2021-07-09] MEDS ORDERED: PHENYLEPHRINE-0.9% NACL SYG 1,000 MCG/10 ML SYRINGE ONE (11:31)
[2021-07-09] MEDS ORDERED: ROCURONIUM 10 MG/ML (5 ML VIAL) IV ONE (11:31)
[2021-07-09] MEDS ORDERED: LIDOCAINE 1% INJ 10MG/ML (20 ML MDV) ONE (11:31)
[2021-07-09] MEDS ORDERED: DEXAMETHASONE SOD PHOSPHATE 4 MG/ML 1 ML VIAL ONE (11:31)
[2021-07-09] MEDS ORDERED: HYDROmorphone (PF) 1 MG/ML ONE (11:31)
[2021-07-09] MEDS ORDERED: ROPIVACAINE 5 MG/ML 30 ML VIAL ONE (11:31)
[2021-07-09] MEDS ORDERED: fentaNYL (PF) 50 MCG/ML 2 ML AMP ONE (11:31)
[2021-07-09] MEDS ORDERED: NEOSTIGMINE 1 MG/ML 10 ML VIAL ONE (11:31)
[2021-07-09] MEDS ORDERED: BUPIVACAINE (PF) 0.25% 30 ML VIAL SQ ONE (12:24)
[2021-07-09] MEDS ORDERED: METOCLOPRAMIDE 5 MG/ML 2 ML VIAL IVP PRN (14:15)
[2021-07-09] MEDS ORDERED: BENZOCAINE/MENTHOL LOZENG 1 EACH LOZENGE MUCOUS MEM PRN (14:15)
[2021-07-09] MEDS ORDERED: HYDROmorphone 1 MG/ML 1 ML SYRINGE IVP PRN (14:18)
[2021-07-09] MEDS ORDERED: HYDROmorphone 0.5 MG/0.5 ML SYRINGE IVP ONE ×2 (15:06→15:20)
[2021-07-09] MEDS: ACETAMINOPHEN TAB 500 MG TAB PO SCH ×2 (17:27→23:53)
[2021-07-09] MEDS: PANTOPRAZOLE 40 MG TABLET PO SCH (17:27)
[2021-07-09] MEDS: ONDANSETRON 4 MG/2 ML VIAL IVP SCH ×2 (17:28→23:53)
[2021-07-09] MEDS: KETOROLAC 15 MG/ML 1 ML VIAL IVP SCH ×2 (17:30→23:52)
[2021-07-09] MEDS: SODIUM CHLORIDE 0.9% 1,000 ML IV SCH (17:37)
[2021-07-09 19:21] LABS: Glucose,Whole Blood 159 mg/dL (75-99)
[2021-07-09] MEDS: HEPARIN SODIUM,PORCINE/PF 5,000 UNIT/0.5 ML SYRINGE SQ SCH (19:34)
[2021-07-09] MEDS: ALVIMOPAN 12 MG CAPSULE PO SCH (19:34)
[2021-07-10 00:50] LABS: Glucose,Whole Blood 134 mg/dL (75-99)
[2021-07-10] MEDS: KETOROLAC 15 MG/ML 1 ML VIAL IVP SCH ×2 (05:49→12:02)
[2021-07-10] MEDS: ACETAMINOPHEN TAB 500 MG TAB PO SCH ×2 (05:50→12:03)
[2021-07-10] MEDS: ONDANSETRON 4 MG/2 ML VIAL IVP SCH ×2 (05:50→12:04)
[2021-07-10] MEDS: SODIUM CHLORIDE 0.9% 1,000 ML IV SCH ×2 (05:50→13:44)
[2021-07-10 07:09] LABS: African American GFR (CKD) >90 (>60 ml/min/1.73 sqM); Anion Gap 4 mmol/L; Blood Urea Nitrogen 8 mg/dL (7-17); Calcium 8.7 mg/dL (8.4-10.2); Carbon Dioxide 28 mmol/L (22-30); Chloride 106 mmol/L (98-107); Glucose 82 mg/dL (74-99); Non-African American GFR(CKD) >90 (>60 ml/min/1.73 sqM); Potassium 3.7 mmol/L (3.5-5.1); Sodium 138 mmol/L (137-145)
[2021-07-10 07:33] VITALS: RESP 17
[2021-07-10 08:18] LABS: Glucose,Whole Blood 89 mg/dL (75-99)
[2021-07-10 09:32] LABS: Basophils # (A) 0.04 X 10*3/uL (0.00-0.10); Basophils % (A) 0.6 %; Eosinophils # (A) 0.01 X 10*3/uL (0.04-0.35); Eosinophils % (A) 0.1 %; HCT 36.5 % (37.2-46.3); HGB 12.2 g/dL (12.0-15.0); Lymphocytes # (A) 1.39 X 10*3/uL (0.90-5.00); Lymphocytes % (A) 20.4 %; MCH 29.3 pg (27.0-32.0); MCHC 33.4 g/dL (32.0-37.0); MCV 87.5 fL (80.0-97.0); Mean Platelet Volume 12.8 fL (9.5-12.2); Monocytes # (A) 0.43 X 10*3/uL (0.20-1.00); Monocytes % (A) 6.3 %; Neutrophils # (A) 4.92 X 10*3/uL (1.80-7.70); Neutrophils % (A) 72.5 %; Platelet Count 184 X 10*3/uL (140-440); RBC 4.17 X 10*6/uL (4.10-5.20); RDW 15.5 % (11.5-14.5)
[2021-07-10] MEDS: LACTATED RINGERS 1,000 ML IV SCH (09:33)
[2021-07-10] MEDS: SERTRALINE 25 MG TAB PO SCH (09:58)
[2021-07-10] MEDS: PANTOPRAZOLE 40 MG TABLET PO SCH (09:58)
[2021-07-10] MEDS: ALVIMOPAN 12 MG CAPSULE PO SCH (09:58)
[2021-07-10] MEDS: HEPARIN SODIUM,PORCINE/PF 5,000 UNIT/0.5 ML SYRINGE SQ SCH (10:03)
[2021-07-10 12:02] LABS: Glucose,Whole Blood 87 mg/dL (75-99)
[2021-07-10 14:24] VITALS: BP 119/70; PULSE 71; TEMP 99.8
--- NOTE | 2021-07-10 15:40 | P.DS ---
<Miri Morocho - Last Filed: 07/10/21 15:36> Providers Expected date of discharge: 07/10/21 Hospital Course: Discharge diagnosis 1. Sigmoid volvulus status post robotic assisted laparoscopic sigmoid colectomy Hospital course The patient is a 51-year-old female with increasing abdominal pain including distention and intermittent large bowel obstruction due to sigmoid volvulus. During authorization patient underwent colonoscopy. And is now status post robotic assisted laparoscopic sigmoid colectomy. Patient tolerated surgery well. Her pain is controlled. She denies any nausea or vomiting. She is tolerating diet. She is having flatus. She has urinated. She is up and ambulating. Patient did have bleeding at the left abdominal incision site. Compression dressing applied. Bleeding has stopped. Hemoglobin stable. She is afebrile. She is stable for discharge. Physician Fleet Manager/Dispatch note has been reviewed by physician. Signing provider agrees with the documented findings, assessment, and plan of care. Patient Condition at Discharge: Stable Plan - Discharge Summary Discharge Rx Participant: Yes New Discharge Prescriptions: New Acetaminophen Tab [Tylenol Tab] 650 mg PO Q4H PRN #30 tablet PRN Reason: Pain Continue Omeprazole 40 mg PO DAILY PRN PRN Reason: Heartburn Sertraline HCl [Zoloft] 75 mg PO DAILY No Action Multivitamins, Thera [Multivitamin (formulary)] 1 tab PO DAILY Calcium Carbonate [Calcium] 600 mg PO DAILY Ergocalciferol [Vitamin D2 (1250 Mcg = 76472 Iu)] 1,250 mcg PO WEEKLY #20 cap Nf-Vitamin A 1 tab PO DAILY Discharge Medication List Multivitamins, Thera [Multivitamin (formulary)] 1 tab PO DAILY 04/03/18 [History] Ergocalciferol [Vitamin D2 (1250 Mcg = 62113 Iu)] 1,250 mcg PO WEEKLY #20 cap 04/02/21 [Rx] Calcium Carbonate [Calcium] 600 mg PO DAILY 07/03/21 [History] Nf-Vitamin A 1 tab PO DAILY 07/03/21 [History] Omeprazole 40 mg PO DAILY PRN 07/03/21 [History] Sertraline HCl [Zoloft] 75 mg PO DAILY 07/03/21 [History] Acetaminophen Tab [Tylenol Tab] 650 mg PO Q4H PRN #30 tablet 07/10/21 [Rx] [facility]Ref[facility] [place] [place] [facility] Activity/Diet/Wound Care/Special Instructions: Wear abdominal binder at all times for comfort. No lifting over 4 pounds in 4 weeks until Aug 06. You May shower. No bath tub soaks for two weeks until Jul 30 Use Tylenol scheduled for the next 24-48 hours for best pain relief. Use ice along incisions for the today to prevent swelling. Hold on taking vitamins until seen by surgeon Discharge Disposition: HOME SELF-CARE <Tamanna Pillai - Last Filed: 07/11/21 12:19> Providers Date of admission: 07/09/21 10:00 Attending physician: Tamanna Pillai Primary care physician: Nonstaff - Discharge Diagnosis(es) (1) Sigmoid volvulus Status: Acute (2) Internal hernia Status: Acute (3) Peritoneal adhesions Status: Acute Hospital Course: As above. Patient seen and evaluated. Overnight, patient had bleeding from left upper quadrant incision controlled using pressure dressing. Dressing was discontinued and changed at bedside. Patient ambulated with no further bleeding from incision. She was passing flatus. Discharge instructions including colectomy diet reviewed. Expectation of blood in stools were reviewed. Patient pain was controlled. Patient was stable for discharge.
[2021-07-10 16:36] LABS: Glucose,Whole Blood 85 mg/dL (75-99)
--- NOTE | 2021-07-11 12:15 | P.OP ---
Date of Procedure: 07/09/21 Description of Procedure: SURGEON: DEDRICK SANDHU MD PREOPERATIVE DIAGNOSES: 1. 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 Chronic abdominal pain 3. History of gastric bypass 4. Depressive disorder 5. Sjogren's syndrome 6. History of MRSA 7. Fibromyalgia 8. Asthma 9. Psoriasis 10. Hypoglycemia POSTOPERATIVE DIAGNOSES: 1. 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 Chronic abdominal pain 3. History of gastric bypass 4. Depressive disorder 5. Sjogren's syndrome 6. History of MRSA 7. Fibromyalgia 8. Asthma 9. Psoriasis 10. Hypoglycemia 11. Internal hernia sigmoid colon 12. Peritoneal adhesions OPERATION: 1. Robotic-assisted daVinci Xi laparoscopic lysis of adhesions over 1.5 hours 2. Robotic-assisted daVinci Xi laparoscopic with sigmoid colectomy and low anterior resection using 29mm EEA Ethicon powered stapler 3. Intraoperative colonoscopy for flexible sigmoidoscopy Anesthesia: GETA, local, regional Estimated Blood Loss (ml): 10 Pathology: other (Sigmoid colon, anastomosis) Condition: stable Disposition: floor COMPLICATIONS: None. Operative Findings: 1. Intra-abdominal including pelvic adhesions with internal hernia causing intermittent small bowel obstruction along right pelvis, adhesion right pelvis to sigmoid colon 2. Redundant sigmoid colon with intermittent sigmoid volvulus 3. At sigmoid epiploica with internal hernia sigmoid colon lysed and removed with specimen INDICATIONS: The patient is a 51-year-old female with intermittent bowel obstruction including sigmoid volvulus. Surgical intervention was described. Benefits and risks, including infection, bowel injury, ureteral injury, colostomy creation and possibility for additional surgery was discussed at length. Informed consent was obtained. All questions of the patient and family were answered. DESCRIPTION: Earlier the patient had undergone a bowel prep using the enhanced colon recovery program. The patient was transferred to the operating room onto a split leg table and repositioned to modified lithotomy following intubation. A Guerra catheter was placed. The abdomen was then prepped and draped in standard sterile fashion as Ioban was placed along the abdomen to minimize any contamination of skin floor. After a timeout protocol was performed, attention was then brought to the left upper quadrant whereby a 0 degree 5 mm laparoscopic trocar entry was performed. The abdominal cavity was entered and insufflated to 15 mmHg pressure, which was tolerated well. Diagnostic laparoscopy confirmed severe adhesions omentum to abdominal wall involving the right upper quadrant, midline, epigastrium. Next trocars were placed 20 cm superior from the pelvis. A 12-mm trocar was placed along the right lateral abdominal wall. A 8 mm port was placed along the right upper quadrant. Ports were placed 10 cm apart from each other including 15-20 cm away from the target anatomy of the left pelvis. An 8-mm port was was placed along the left upper quadrant. The stapler 12-mm port was arranged along the left lateral abdominal wall. The patient was then placed in Trendelenburg position, at least 21. The robotic da Jose Miguel XI system was primed. The robot was docked from the right side of the patient. Using atraumatic graspers and vessel sealer, the robotic system was docked and primed as described. Instruments were interchanged by the retail assistant manager including needle show horse driver, clip equipment tester, hook cautery, robotic stapler and vessel sealer. The robot stapler was prepared along the right lateral abdominal wall. Initial attention was brought to lysis of adhesions of the pelvis where an internal hernia was identified from prior hysterectomy creating a pocket of the right pelvis to sigmoid colon and intermittent small bowel obstruction. Additionally, internal hernia of the sigmoid epiploica was also identified. Small bowel was reduced from the internal hernia. Lysis of adhesions was performed using vessel sealer for over 1.5 hours. Next, attention was brought to sigmoid colon. The sigmoid mesentery was mobilized using a vessel sealer. Using robot stapler 60 mm green loads, the descending colon was divided. Mobilization of the colon was performed to the pelvic brim along the sacral promontory. The mesentery of the sigmoid colon was mobilized towards the descending colon using a vessel sealer. Next, the top of the rectum was divided using robotic stapler 60 mm green loads. The rest of the sigmoid colon mesentery was mobilized using vessel sealer. Additionally, the sigmoid colon was mobilized onto the colon to minimize injury to the ureters. I went to the foot of the bed for selection of a sizer. A colorectal colon anastomosis with an EEA 29-mm was selected after using a sizer along the rectum. For the proximal sigmoid colon, a 29-mm anvil was placed after creating a colotomy then closed using a stapler at the distal end. The robot arms were temporarily undocked. A stapler was entered along the rectum and mated to the anvil for 1 minute. The anastomosis was created. The donuts were thick on the rectum side and then on the colon side. I then performed a bedside flexible sigmoidoscopy using colonoscope where no leaks or defects were confirmed as the retail assistant manager placed normal saline along the pelvis. I re-scrubbed into the case. Irrigation fluid was suctioned from the abdomen. The robot was undocked. All needles were removed from the abdominal cavity. Via the left lateral 12-mm trocar site, the resected colon was retrieved after widening the skin incision to 4-cm. The fascial defect was oversewn using 0 Vicryl and a Matt Shahid. All incisions were cleansed using dilute normal saline and hydrogen peroxide mixture. Next all pneumoperitoneum was evacuated from the abdominal cavity. The 8-mm trocar sites were reapproximated using 4-0 Monocryl in an interrupted subcuticular fashion. Local anesthetic was infiltrated to all wounds for postop analgesia. All incisions were also cleansed with diluted hydrogen peroxide. An Optifoam surgical dressing was placed over the colon extraction site. Exofin was applied to the rest of the skin incisions. An abdominal binder was placed. The patient was extubated successfully. The patient was transferred to the postanesthesia care unit in stable condition.
== END 2021-07-10 17:45 | disposition home or self-care (01) | DRG 331 ==
LOC: ORWHC2ENDO 09:48 → 4SSUR 14:06 → ORWHC2ENDO 07-09 10:00 → 4SSUR 07-09 10:00
PROVIDERS: ADMIT Surgery Plastic and Reconstructive Surgery; ATTEND Surgery Plastic and Reconstructive Surgery
PROC: 0DJD8ZZ Inspection of Lower Intestinal Tract, Via Natural or Artificial Opening Endoscopic (ICD-10-PCS; 2021-07-08)
PROC: 0DNW4ZZ Release Peritoneum, Percutaneous Endoscopic Approach (ICD-10-PCS; 2021-07-09)
PROC: 8E0W4CZ Robotic Assisted Procedure of Trunk Region, Percutaneous Endoscopic Approach (ICD-10-PCS; 2021-07-09)
PROC: 0DTN0ZZ Resection of Sigmoid Colon, Open Approach (ICD-10-PCS; principal; 2021-07-09 09:15)
DX: K56.2 Volvulus (principal); M35.00 Sjogren syndrome, unspecified; M79.7 Fibromyalgia; E16.2 Hypoglycemia, unspecified; K63.89 Other specified diseases of intestine; M19.90 Unspecified osteoarthritis, unspecified site; Z20.822 Contact with and (suspected) exposure to COVID-19; K46.9 Unspecified abdominal hernia without obstruction or gangrene; F32.9 Major depressive disorder, single episode, unspecified; K66.0 Peritoneal adhesions (postprocedural) (postinfection); F41.9 Anxiety disorder, unspecified; G89.29 Other chronic pain; J45.909 Unspecified asthma, uncomplicated; L40.9 Psoriasis, unspecified; Z79.899 Other long term (current) drug therapy; Z86.14 Personal history of Methicillin resistant Staphylococcus aureus infection; Z90.710 Acquired absence of both cervix and uterus; Z96.651 Presence of right artificial knee joint; Z98.84 Bariatric surgery status; Z90.49 Acquired absence of other specified parts of digestive tract; Z91.011 Allergy to milk products; Z87.19 Personal history of other diseases of the digestive system; Z88.5 Allergy status to narcotic agent; Z91.041 Radiographic dye allergy status; Z91.013 Allergy to seafood
CPT/HCPCS: 45330; 64999; 80048; 80053; 85025; 85610; 85730; 86850; 86900; 86901; 87635; 88307